=== PATIENT | male | born 1960 | race Caucasian/White ===

== ENCOUNTER 2020-11-15 01:39 | Inpatient (IN) | payer MEDICARE, SELFPAY ==
[2020-11-15] VITALS (45 sets, daily range): BP systolic 118–186; BP diastolic 76–139; PULSE 86–128; RESP 12–70; TEMP 35.7–37.7; O2SAT 63–100; BMI 40.6; BMI 37.8; BMI 37.9
--- NOTE | 2020-11-15 01:41 | EKG12_ITS ---
Test Reason : SOB Blood Pressure : / mmHG Vent. Rate : 120 BPM Atrial Rate : 120 BPM P-R Int : 186 ms QRS Dur : 088 ms QT Int : 314 ms P-R-T Axes : 056 093 -59 degrees QTc Int : 443 ms Sinus tachycardia Rightward axis T wave abnormality, consider inferolateral ischemia Abnormal ECG Confirmed by ANNA MARIE VALADEZ, TRAN ([id number]), web editor DAYTON HUTCHINS ([id number]) on 11/18/2020 7:49:31 AM Referred By: STORMY Confirmed By:TRAN THRASHER MD
--- NOTE | 2020-11-15 01:45 | ED.DCSUM_ITS ---
History of Present Illness Chief Complaint: Syncope Informant: Patient, [place] Inspector Onset: Today Narrative: Patient presents secondary to shortness of breath and syncopal episode. Patient states he was short of breath all day yesterday. He denies chest pain or abdominal pain. He was walking down the [place] to go to bed early this morning when he became lightheaded and passed out. EMS notes patient's O2 sat was around 50%. On a nonrebreather he was still only satting in the low 70s. Patient denies any known history of lung disease. Past Medical History - Allergies and Home Meds Allergies/Adverse Reactions: Allergies No Known Allergies Allergy (Verified 11/15/20 02:57) Primary Care Physician: [facility] Doctor,Out of [NON-STAFF] - Review of Systems General: Denies: Chills, Fever Eyes: Denies: Visual changes - bilaterally ENT: Denies: Bilateral ear pain Cardiovascular: Denies: Chest pain Respiratory: Reports: Dyspnea. Denies: Cough Gastrointestinal: Denies: Abdominal pain, Nausea, Vomiting, Diarrhea Genitourinary: Denies: Dysuria Musculoskeletal: Denies: Swelling, Extremity Pain Skin: Denies: Rash Neurological: Denies: Headache Hematologic: Denies: Easy bruising, Easy bleeding Allergy: Denies: Uticaria Physical Exam Vital Signs/Narrative: Vital Signs Temp Pulse Resp BP Pulse Ox 11/15/20 01:40 96.3 F L 128 H 40 H 168/115 H 63 Inital Vital Signs reviewed: Yes General: Well nourished, Well developed Head: Normocephalic Cardiovascular: Tachycardia Respiratory: Decreased Air Movement - Slight decreased air movement lung sounds are present bilaterally. Abdomen: Soft, Nontender, Hypoactive bowel sounds Extremities: Nontender, No edema Skin: Normal color Neurological: Alert, Oriented x3 Psychological: Normal affect Diagnostic/Tx/Re-eval Chest X-Ray - ED: 1 View, Read by ED Physician, - - Bilateral fluffy infiltrates consistent with pulmonary edema pattern. Impressions Chest CTA 11/15/20 02:32 IMPRESSION: No overt demonstrated pulmonary embolism, aneurysm, leak or arterial dissection. Cardiac motion is degrading the detail assessment, subtle particularly peripheral pulmonary emboli could be obscured. Cardiomegaly and coronary artery disease. Ground glass opacification likely pulmonary edema. This could represent an inflammatory/infectious process rather than vascular congestion in this patient. Other nonacute findings as outlined above. Electronically Signed: Bebe Rodriguez MD at 4:11 EDT , Service support , 11/15/20 01:58 Chest 1 View (Portable) [RAD] Stat 11/15/20 02:32 CTA Chest W/WO Contrast [CT] Stat 11/15/20 01:45 Mucosa - Nose SARS-CoV-2 Antigen (Rapid) - Final Laboratory Results 11/15/20 11/15/20 11/15/20 01:45 01:45 01:45 WBC 18.2 H RBC 5.79 Hgb 16.2 Hct 49.2 MCV 85.0 MCH 28.0 MCHC 32.9 RDW Std Deviation 42.0 RDW Coeff of Yomi 13.5 Plt Count 464 H MPV 10.3 Immature Gran % (Auto) 4.400 H Neut % (Auto) 81.3 H Lymph % (Auto) 8.5 L [place] % (Auto) 5.0 Eos % (Auto) 0.1 Baso % (Auto) 0.7 Absolute Neuts (auto) 14.8 H Absolute Lymphs (auto) 1.55 Nucleated RBC % 0 D-Dimer Quant (PE/DVT) 5.67 H* Specimen Type Sample Site pH Bicarbonate Actual Total CO2 Base Excess O2 Saturation O2 % ABG pCO2 ABG pO2 [facility] Test O2 Delivery Device POC PEEP Sodium 129 L Potassium 4.0 Chloride 92 L Carbon Dioxide 24.0 Anion Gap 13 BUN 32 H Creatinine 1.41 H Estim Creat Clear Calc 58.96 Est GFR (MDRD) Af Amer 66 Est GFR (MDRD) Non-Af 55 L BUN/Creatinine Ratio 22.7 H Glucose 182 H Calcium 8.5 Total Bilirubin 1.60 H Direct Bilirubin 0.82 H AST 77 H ALT 32 Alkaline Phosphatase 121 H Troponin I 0.193 H B-Natriuretic Peptide Total Protein 8.4 H Albumin 3.1 L Globulin 5.3 H 11/15/20 11/15/20 01:45 03:26 WBC RBC Hgb Hct MCV MCH MCHC RDW Std Deviation RDW Coeff of Yomi Plt Count MPV Immature Gran % (Auto) Neut % (Auto) Lymph % (Auto) [place] % (Auto) Eos % (Auto) Baso % (Auto) Absolute Neuts (auto) Absolute Lymphs (auto) Nucleated RBC % D-Dimer Quant (PE/DVT) Specimen Type ART Sample Site L Radial pH 7.49 H Bicarbonate Actual 22.6 Total CO2 24 Base Excess -1 O2 Saturation 94 L O2 % 70 ABG pCO2 29.8 L ABG pO2 65 L [facility] Test Positive O2 Delivery Device BiPAP POC PEEP 8 Sodium Potassium Chloride Carbon Dioxide Anion Gap BUN Creatinine Estim Creat Clear Calc Est GFR (MDRD) Af Amer Est GFR (MDRD) Non-Af BUN/Creatinine Ratio Glucose Calcium Total Bilirubin Direct Bilirubin AST ALT Alkaline Phosphatase Troponin I B-Natriuretic Peptide 273.7 H Total Protein Albumin Globulin - EKG Initial EKG Interpretation: Sinus Tachycardia - Sinus tach at 120. Inferior lateral T wave inversion. No significant ST segment changes. - Medical Decision Making Patient's O2 sat was reading 58% on arrival. He was immediately placed on BiPAP and saturations increased to 100%. At this time he has been able to have his FiO2 reduced to about 70% and is currently satting in the low 90s. Patient appears much more comfortable. EKG is sinus tach. T inversions are noted. There are no old studies available for comparison. Blood work significant for a white count of 18. Creatinine is 1.4 with no prior studies available for comparison. Troponin is elevated at 0.19. BNP is only 270. Chest x-ray per my interpretation reveals fluffy bilateral infiltrates consistent with a pulmonary edema pattern. Because of elevated D-dimer he was sent for a CTA of the chest. This was read as pulmonary edema, cannot exclude underlying inflammatory or infectious process. Patient will be given a dose of Lasix. In light of his elevated white count he will also be given Rocephin and Zithromax to cover pneumonia. Rapid Covid test here was negative. Patient be discussed with hospitalist for admission to ICU. - Critical Care Time Critical care time (excluding procedures): 30-74 minutes ED Disposition - Plan for ED Patient: Disposition: Acute Care Hospital [facility] Diagnosis: Respiratory failure, Pulmonary edema Referrals: [facility] Doctor,Out of [NON-STAFF] -
--- NOTE | 2020-11-15 01:49 | EKG12_ITS ---
Test Reason : SOB Blood Pressure : / mmHG Vent. Rate : 119 BPM Atrial Rate : 119 BPM P-R Int : 178 ms QRS Dur : 094 ms QT Int : 300 ms P-R-T Axes : 054 092 -77 degrees QTc Int : 422 ms Sinus tachycardia Rightward axis ST & T wave abnormality, consider inferolateral ischemia Abnormal ECG Confirmed by WHITNEY VALADEZ, BOB ([id number]), editorial project manager DAYTON HUTCHINS ([id number]) on 11/27/2020 2:11:53 PM Referred By: STORMY Confirmed By:BOB OLSON MD
--- NOTE | 2020-11-15 01:52 | ED.RN ---
no old ekgs on file
--- NOTE | 2020-11-15 01:58 | RAD_ITS ---
STUDY: X-RAY CHEST REASON FOR EXAM: Male, 60 years old. sob and syncope today TECHNIQUE: Single AP portable view of the chest. COMPARISON: None. FINDINGS: Confluent groundglass opacities are seen more prominent in the lung bases , may represent bilateral bacterial pneumonia , ARDS or viral pneumonia (COVID-19 ?). There is no demonstrated pleural abnormality. Normal size heart. Normal mediastinum and tommy. Normal visualized pulmonary arteries. Normal visualized aortic arch and descending thoracic aorta. Normal visualized thoracic spine. Normal visualized ribs, clavicles, and shoulders. There is no demonstrated abnormality of the visualized soft tissue structures of the upper abdomen. RAD/Chest 1 View (Portable) IMPRESSION: Confluent groundglass opacities are seen more prominent in the lung bases , may represent bilateral bacterial pneumonia , ARDS or viral pneumonia (COVID-19 ?). Electronically Signed: Russ Andujar MD at 5:06 EDT Tel , Service support ,
[2020-11-15 02:02] LABS: Absolute Lymphocyte Count 1.55 X10^3/uL (0.83-4.51); Absolute Neutrophil Count 14.8 X10^3/uL (2.0-7.7); Basophil# 0.12 X10^3/uL; Basophil% 0.7 % (0-1); Eosinophil# 0.01 X10^3/uL; Eosinophils% 0.1 % (0-5); Hematocrit 49.2 % (40-54); Hemoglobin 16.2 g/dL (13.0-16.5); Lymphocyte # 1.55 X10^3/ul (4.0); Lymphocyte % 8.5 % (19-41); Mean Corp Hgb Conc 32.9 g/dL (32-36); Mean Platelet Vol. 10.3 fl (6.2-12.0); Monocyte# 0.92 X10^3/uL; NRBC Flagged by Analyzer 0 % (0-5); Neutrophil # 14.84 X10^3/uL (2.7-7.7); Neutrophil % 81.3 % (47-70); Platelet Count 464 K/mm3 (150-450); RBC Distribution Width CV 13.5 % (11.6-14.6); Red Blood Count 5.79 M/mm3 (4.6-6.2); White Blood Count 18.2 K/mm3 (4.4-11.0)
[2020-11-15 02:18] LABS: BNP,B-Type NATRIURETIC PEPTIDE 273.7 pg/mL (0-100)
[2020-11-15 02:21] LABS: AST(SGOT) 77 U/L (15-37); Alanine Aminotransfer ALT/SGPT 32 U/L (16-61); Albumin, Serum 3.1 g/dL (3.2-5.0); Alkaline Phosphatase 121 U/L (45-117); Anion Gap 13 (5-15); BUN 32 mg/dL (7-18); BUN/Creat Ratio 22.7 RATIO (10-20); Bilirubin, Direct 0.82 mg/dL (0.00-0.30); Calcium,Total 8.5 mg/dL (8.5-10.1); Chloride 92 mmol/L (98-107); Creatinine, Serum 1.41 mg/dL (0.70-1.30); EST Glomerular Filtration Rate 55 mL/min (>60); Est Glom Filt Rate - Afr Amer 66 mL/min (>60); Estimated Creatinine Clearance 58.96 ml/min; Globulin 5.3 g/dL (2.2-4.2); Glucose 182 mg/dL (74-106); Protein, Total 8.4 g/dL (6.4-8.2); Sodium Level 129 mmol/L (136-145)
[2020-11-15 02:31] LABS: Allen Test Positive; Base Excess -1 mmol/L (-2 to +2); Bicarbonate 22.6 mmol/L (22-26); Blood Gas Specimen Type ART; FI02 70; O2 Delivery Device BiPAP; PEEP 8; PO2 65 mmHG (75-100); SITE L Radial; SO2 94 % (95-99); Total Carbon Dioxide 24 mmol/L; pCO2 29.8 mmHg (35-45); pH 7.49 (7.35-7.45)
[2020-11-15 02:31] LABS: D-Dimer Quantitative (DVT/PE) 5.67 FEU/ug/m (0.27-0.49)
--- NOTE | 2020-11-15 02:32 | CT_ITS ---
STUDY: CTA CHEST REASON FOR EXAM: Male, 60 years old. sob, elevated d-dimer RADIATION DOSAGE (If Supplied By Facility): CTDIvol = ( 17.42 ) mGy, DLP = ( 560.04 ) mGycm TECHNIQUE: The examination was performed with the intravenous administration of IV 100mL Isovue-370. Post-processing of the angiographic images was performed, with multiplanar reformation and 3D reconstruction. There is image blurring as a result of cardiac motion. Diagnostic accuracy is somewhat reduced. However, there is substantial diagnostic information remaining available on this study. There is obesity, the entirety of soft tissue is not imaged. Individualized dose optimization techniques were used for this CT. COMPARISON: Lateral chest x-ray 11/15/2020 FINDINGS: Normal enhancement of the main pulmonary artery and right and left pulmonary arteries. Normal enhancement of the bilateral peripheral pulmonary arteries. There is no demonstrated pulmonary embolism. Normal thoracic aorta and visualized great vessels. There is no demonstrated aortic dissection. There is cardiomegaly. There are calcifications of the coronary arteries. No overt lymphadenopathy. Normal hilar regions. Normal visualized trachea and bronchi. The lungs are well expanded. Diffuse bilateral groundglass opacification, relative sparing of the left upper lobe. Normal pleura. Normal chest wall structures. There are significant degenerative changes of thoracic spine. Normal visualized upper abdomen. CT/CTA Chest W/WO Contrast IMPRESSION: No overt demonstrated pulmonary embolism, aneurysm, leak or arterial dissection. Cardiac motion is degrading the detail assessment, subtle particularly peripheral pulmonary emboli could be obscured. Cardiomegaly and coronary artery disease. Ground glass opacification likely pulmonary edema. This could represent an inflammatory/infectious process rather than vascular congestion in this patient. Other nonacute findings as outlined above. Electronically Signed: Bebe Rodriguez MD at 4:11 EDT , Service support ,
[2020-11-15] MEDS: Furosemide 40 MG/4 ML Vial IV ×3 (04:27→17:38)
[2020-11-15] MEDS: Ceftriaxone 1 GM/50 ML BAG IV ×2 (04:27→23:04)
--- NOTE | 2020-11-15 04:47 | HP.PCM_ITS ---
Problem List (1) Acute hypoxemic respiratory failure Status: Acute (2) Respiratory failure Status: Acute (3) Pulmonary edema Status: Acute (4) No previous medical history Status: Chronic History of Present Illness Date of Admission: 11/15/20 Chief Complaint: sob The patient is a 60 year old M with no diagnosed medical condition presented to emergency department with progressively worsening shortness of breath that started about 3 days before presentation. Associated with symptoms is lightheadedness. With his lightheadedness he fell to the wall. Also patient reports intermittent fever with highest temperature of 101 Fahrenheit. He has a dry cough. He has no appetite. Reportedly when squad found him his oxygen saturation was a 40s to low 50s and he required none rebreather mask wich brought his oxygen saturation to about 70%. At emergency department he was transitioned to BiPAP. Of note patient had had first Covid moderna vaccination about 2 weeks ago. His mother who was with patient confirms that patient has not been seeing a doctor. Past Medical History Past Medical History (Chronic Problems): Chronic Problems (Last Updated 11/15/20 @ 05:[address] Angel Patel MD) No previous medical history (Chronic) Medical History: Medical History (Last Updated 11/15/20 @ 05:[address] Angel Patel MD) No previous medical history (Acute) Allergies No Known Allergies Allergy (Verified 11/15/20 02:57) Surgical History: no surgical history Smoking Status: Never smoker - *Family History Maternal History Items: Dementia, Heart Disease, - - Arthritis Paternal History Items: Dementia Review of Systems Constitutional: Reports: Fever. Denies: Chills, Weight Change - Lost about 5 pounds in 1 and half weeks because he has not been eating HEENT: Denies: Head Aches, Sinus Congestion, Sinus Drainage Cardiovascular: Reports: Light Headedness, Paroxysmal Noc. Dyspnea. Denies: Chest Pain, Palpitations Respiratory: Reports: Cough. Denies: Shortness of Breath, Sputum production Gastrointestinal: Denies: Abdominal Pain, Nausea, Vomiting Genitourinary: Denies: Dysuria Musculoskeletal: Denies: Joint Pain, Joint Tenderness Skin: Denies: Rash, Wounds Neurological: Denies: Numbness, Tingling, Focal weakness Psychiatric: Denies: Anxiety, Depression, Homicidal Ideations, Suicidal Ideations Hematologic/ Lymphatic: Denies: Easy Bruising, Easy Bleeding VTE Information - Inpt Only VTE Present on Admission: No VTE Mechan Device Prophylaxis: None VTE Pharm Prophylaxis ordered?: Yes Patient Problems: Active and Suspected Problems (Last Updated 11/15/20 @ 05:[address] Angel Patel MD) Respiratory failure (Acute) Pulmonary edema (Acute) Acute hypoxemic respiratory failure (Acute) - Physical Exam Vitals/I&O's: Vital Signs Temp Pulse Resp BP Pulse Ox 97 F L 115 H 39 H 158/126 H 94 11/15/20 04:00 11/15/20 04:16 11/15/20 04:16 11/15/20 04:00 11/15/20 04:16 Oxygen Delivery Method Bi-pap Weight: 128.5 kg Body Mass Index (BMI) 40.6 General: Alert, Oriented x3, Cooperative HEENT: Atraumatic, PERRLA, EOMI, Normocephalic Neck: Supple, No JVD, Negative Carotid Bruits Lungs: Rales, Tachypneic, Using Accessory Muscles Cardiovascular: Normal S1, Normal S2, No murmurs, Tachycardic Abdomen: Bowel Sounds Present, Soft, Non Tender Extremities: No edema, Capillary Refill Less than 3 Seconds Skin: No rashes, No breakdown Musculoskeletal: No Tenderness to Palpation of Joints or Extremities Neurological: Cranial nerves II-XII grossly intact Psych/Mental Status: Normal Affect, Appropriate Microbiology Past 72 Hours 11/15/20 01:45 Mucosa - Nose SARS-CoV-2 Antigen (Rapid) - Final Laboratory Results 11/15/20 01:45: WBC 18.2 H, RBC 5.79, Hgb 16.2, Hct 49.2, MCV 85.0, MCH 28.0, MCHC 32.9, RDW Std Deviation 42.0, RDW Coeff of Yomi 13.5, Plt Count 464 H, MPV 10.3, Immature Gran % (Auto) 4.400 H, Neut % (Auto) 81.3 H, Lymph % (Auto) 8.5 L , [place] % (Auto) 5.0, Eos % (Auto) 0.1, Baso % (Auto) 0.7, Absolute Neuts (auto) 14.8 H, Absolute Lymphs (auto) 1.55, Nucleated RBC % 0 11/15/20 01:45: D-Dimer Quant (PE/DVT) 5.67 H* 11/15/20 01:45: Sodium 129 L, Potassium 4.0, Chloride 92 L, Carbon Dioxide 24.0, Anion Gap 13, BUN 32 H, Creatinine 1.41 H, Estim Creat Clear Calc 58.96, Est GFR (MDRD) Af Amer 66, Est GFR (MDRD) Non-Af 55 L, BUN/Creatinine Ratio 22.7 H, Glucose 182 H, Calcium 8.5, Total Bilirubin 1.60 H, Direct Bilirubin 0.82 H, AST 77 H, ALT 32, Alkaline Phosphatase 121 H, Troponin I 0.193 H, Total Protein 8.4 H, Albumin 3.1 L, Globulin 5.3 H 11/15/20 01:45: B-Natriuretic Peptide 273.7 H 11/15/20 03:26: Specimen Type ART, Sample Site L Radial, pH 7.49 H, Bicarbonate Actual 22.6, Total CO2 24, Base Excess -1, O2 Saturation 94 L, O2 % 70, ABG pCO2 29.8 L, ABG pO2 65 L, [facility] Test Positive, O2 Delivery Device BiPAP, POC PEEP 8 Current Medications Azithromycin 500 mg/ Dextrose 255 mls @ 250 mls/hr IV X1 ONE Stop: 11/15/20 05:16 Assessment/Plan All Active Problems (Last Updated 11/15/20 @ 05:[address] Angel Patel MD) Respiratory failure (Acute) Pulmonary edema (Acute) Acute hypoxemic respiratory failure (Acute) The patient is a 60 year old M with no diagnosed medical condition presented to emergency department with progressively worsening shortness of breath; light headedness and severe hypoxia requiring BiPAP. Acute hypoxemic respiratory failure/pulmonary edema Patient requiring BiPAP to maintain appropriate oxygen saturation. Continue BiPAP started at emergency department. Impression of chest x-ray by radiology: Confluent granular opacity are seen more prominent in the lung bases, may represent bilateral bacterial pneumonia, ARDS or viral pneumonia (COVID-19?) D-dimer was elevated at 5.67. Chest CTA with cardiomegaly, coronary disease and groundglass opacities. Etiology unclear at this point. However with fever and leukocytosis with bandemia patient was started on ceftriaxone and azithromycin emergency department. We will continue antibiotics and will check procalcitonin. Initially rapid Covid antigen was negative. We will get a PCR Covid. We will also get influenza screen. If PCR Covid is negative and influenza screen is negative consider comprehensive respiratory pathogen panel Received Lasix 40 mg IV at emergency department. We will continue Lasix 40 mg IV twice daily Discussed with emergency department doctor to order nitroglycerin paste. Nitroglycerin paste ordered inpatient. Daily weights ordered. Strict intake and output. N.p.o. while on BiPAP. BNP is 273.7. However patient is overweight making BMP falsely low. Echocardiogram ordered Elevated troponin Troponin elevated at 0.193 Likely secondary demand Elevated liver biochemistry and alkaline phosphatase No prior records in hospital system or committee records to compare with. Trend CMP. Elevated creatinine Creatinine elevated at 1.41. No records to compare with. With pulmonary edema dyspnea likely be acute. Lasix as above. Hyponatremia Sodium of 129 chloride of 92. Likely secondary to hypervolemia. Lasix as above. Thrombocytosis Platelet count of 464 Likely secondary to active. Trend CBC. Morbid Obesity: BMI:40.6. Complicates care. Lifestyle modification recommended. DVT prophylaxis Subcutaneous Lovenox ordered. Inpatient E&M: 78810 Init Hosp L3
[2020-11-15] MEDS: Nitroglycerin Oint 1 INCH PACKET TD ×4 (05:18→23:46)
[2020-11-15] MEDS: Labetalol (Prefilled) 20 MG/4 ML 10 MG IV (06:47)
[2020-11-15 07:45] LABS: Procalcitonin 0.58 ng/mL (0.00-0.09)
--- NOTE | 2020-11-15 08:26 | CON.PCM_ITS ---
Problem List (1) Respiratory failure Status: Acute Qualifiers: Chronicity: acute Respiratory failure complication: hypoxia Qualified Code(s): J96.01 - Acute respiratory failure with hypoxia (2) Pulmonary edema Status: Acute Qualifiers: Chronicity: acute Qualified Code(s): J81.0 - Acute pulmonary edema (3) Acute hypoxemic respiratory failure Status: Acute (4) Hypertensive emergency Status: Acute Reason for Consult Date of Consultation: 11/15/20 Reason for Consultation: Acute hypoxic respiratory failure History of Present Illness: The patient is a 60 year old M, with no reported past medical history, who presented to [facility] on 11/15/2020 secondary to shortness of breath and a syncopal episode. Patient reportedly has had progressive shortness of breath for the 24 hours. Patient was not reporting any cough, chest pain or abdominal pain. Patient reportedly was walking down the gama to go to bed this morning, became lightheaded and then passed out. EMS reported saturations around 50%. Patient was on a nonrebreather saturating low 70s when he was brought to the emergency room for evaluation. Patient does not report a history of lung disease or smoking. In the ER, patient was noted to be tachycardic at 128 bpm, tachypneic at 40 and hypertensive at 168/115. Chest x-ray was obtained consistent with a pulmonary edema pattern. Patient was also sent for CTA showing no PE, but bilateral groundglass opacities. Rapid Covid was negative. Patient did have a leukocytosis of 18.2 with a hemoglobin of 16.2, and elevated D-dimer at 5.67. Patient was hyponatremic at 129 with a creatinine of 1.4 and slightly elevated troponin at 0.193. Arterial blood gas on BiPAP therapy showed a pH of 7.49, PCO2 of 29.8, PO2 of 65% with a 94% saturation. EKG showed sinus tachycardia without T wave changes. Patient was given Lasix, Rocephin and Zithromax admitted to the intensive care unit for further evaluation. On my evaluation in the intensive care unit, patient was hypertensive at 186/112. Patient remained tachypneic, but was more comfortable. Patient states that he has been feeling progressively more short of breath over the course of 5 to 7 days, but is a relatively poor historian. Patient does report that his legs swell from time to time requiring him to lift them with sleep. Patient reportedly does not follow with physicians routinely. Patient does not check his oxygen saturation, blood pressure or heart rate routinely. Patient reports he has never been a smoker and denies any alcohol or substance abuse. Patient denies any history of asbestos or TB exposure. Patient has never had a pulmonary function test. Review of systems otherwise negative from a constitutional, HEENT, respiratory, cardiovascular, GI, genitourinary, musculoskeletal, skin, neurologic, psychiatric and hematologic system unless stated above. Past Medical History Past Medical History (Chronic Problems): Chronic Problems (Last Updated 11/15/20 @ 05:[address] Angel Patel MD) No previous medical history (Chronic) Medical History: Medical History (Last Updated 11/15/20 @ 05:[address] Angel Patel MD) No previous medical history (Chronic) Allergies No Known Allergies Allergy (Verified 11/15/20 02:57) Surgical History: no surgical history Smoking Status: Never smoker - *Family History Maternal History Items: Dementia, Heart Disease, - - Arthritis Paternal History Items: Dementia Review of Systems Unable to obtain accurate/complete ROS d/t: Poor historian Patient Problems: Active and Suspected Problems (Last Updated 11/15/20 @ 05:[address] Angel Patel MD) Respiratory failure (Acute) Pulmonary edema (Acute) Acute hypoxemic respiratory failure (Acute) Objective: All imaging was personally reviewed. Agree with formal reports. Patient did not have a significant amount of mediastinal lymphadenopathy appreciated, but does have extensive groundglass opacities. Covid PCR is currently pending. Patient does not have any previous echocardiograms or pulmonary function test available for review. - Physical Exam Vitals/I&O's: Vital Signs Temp Pulse Resp BP Pulse Ox 35.9 C L 98 42 H 132/109 H 97 11/15/20 08:00 11/15/20 08:00 11/15/20 08:00 11/15/20 08:00 11/15/20 08:00 Oxygen Delivery Method Bi-pap Weight: 126.7 kg Body Mass Index (BMI) 37.8 Intake and Output for Last 24 Hours 11/13/20 11/14/20 11/15/20 23:59 23:59 23:59 Intake Total 305 / 305 Balance 305 / 305 General: Alert, Oriented x3, Cooperative, - - Mild conversational dyspnea on BiPAP therapy. Obese. Appears older than stated age. HEENT: Atraumatic, PERRLA, EOMI, Normocephalic, - - No scleral icterus or injection noted Oral: Moist Mucosa, No Gingival or Mucosal Lesions/ Ulcerations, - - Crowded posterior pharynx Neck: Supple, No Nodes, Trachea Midline, JVD, Right Lungs: No rhonchi, Diminished, Rales - Bilateral, Wheezes - End expiratory Cardiovascular: Normal S1, Normal S2, No murmurs, No rub noted, No Gallop, Tachycardic Abdomen: Bowel Sounds Present, Soft, Non Tender, Non-Distended, Obese Extremities: No clubbing, No cyanosis, Edema - 1-2+ lower extremity Skin: No rashes, No breakdown Musculoskeletal: No Tenderness to Palpation of Joints or Extremities Lymphatic: No Cervical, Supraclavicular, or Inguinal Adenopathy Neurological: Cranial nerves II-XII grossly intact, Neuro grossly intact, Motor Exam 5/5 strength throughout Psych/Mental Status: Flat Affect, Restless Microbiology Past 72 Hours 11/15/20 05:27 Mucosa - Nose Influenza Types A,B Direct FA (ASHLI) - Final 11/15/20 01:45 Mucosa - Nose SARS-CoV-2 Antigen (Rapid) - Final Laboratory Results 11/15/20 01:45: WBC 18.2 H, RBC 5.79, Hgb 16.2, Hct 49.2, MCV 85.0, MCH 28.0, MCHC 32.9, RDW Std Deviation 42.0, RDW Coeff of Yomi 13.5, Plt Count 464 H, MPV 10.3, Immature Gran % (Auto) 4.400 H, Neut % (Auto) 81.3 H, Lymph % (Auto) 8.5 L , [place] % (Auto) 5.0, Eos % (Auto) 0.1, Baso % (Auto) 0.7, Absolute Neuts (auto) 14.8 H, Absolute Lymphs (auto) 1.55, Nucleated RBC % 0 11/15/20 01:45: D-Dimer Quant (PE/DVT) 5.67 H* 11/15/20 01:45: Sodium 129 L, Potassium 4.0, Chloride 92 L, Carbon Dioxide 24.0, Anion Gap 13, BUN 32 H, Creatinine 1.41 H, Estim Creat Clear Calc 58.96, Est GFR (MDRD) Af Amer 66, Est GFR (MDRD) Non-Af 55 L, BUN/Creatinine Ratio 22.7 H, Glucose 182 H, Calcium 8.5, Total Bilirubin 1.60 H, Direct Bilirubin 0.82 H, AST 77 H, ALT 32, Alkaline Phosphatase 121 H, Troponin I 0.193 H, Total Protein 8.4 H, Albumin 3.1 L, Globulin 5.3 H 11/15/20 01:45: B-Natriuretic Peptide 273.7 H 11/15/20 03:26: Specimen Type ART, Sample Site L Radial, pH 7.49 H, Bicarbonate Actual 22.6, Total CO2 24, Base Excess -1, O2 Saturation 94 L, O2 % 70, ABG pCO2 29.8 L, ABG pO2 65 L, [facility] Test Positive, O2 Delivery Device BiPAP, POC PEEP 8 11/15/20 06:40: Procalcitonin 0.58 H 11/15/20 08:00: COVID-19 (MISAEL) Pending 11/15/20 08:00: Troponin I Pending Current Medications Albuterol Sulfate (Albuterol 2.5 Mg/3 Ml Vial.Neb.) 2.5 mg INHALATION Q2H PRN PRN PRN Reason: SOB/Wheezing Enoxaparin Sodium (Enoxaparin 40 Mg/0.4 Ml Syringe) 40 mg SC DAILY VIKTROIYA Furosemide (Furosemide 40 Mg/4 Ml Vial) 40 mg IV BID@1000,1800 [facility] Sodium Chloride () 250 mls @ 15 mls/hr IV .[id number] PRN PRN Reason: Saline Flush Ceftriaxone Sodium (Rocephin) 1 gm in 50 mls @ 100 mls/hr IV Q24@2200 VIKTORIYA Azithromycin 500 mg/ Dextrose 255 mls @ 250 mls/hr IV Q24@2200 VIKTORIYA Melatonin (Melatonin 3 Mg Tablet) 3 mg PO QHS PRN PRN PRN Reason: INSOMNIA Nitroglycerin (Nitroglycerin Oint 1 Inch Packet) 1 inch TD Q6 VIKTORIYA Ondansetron HCl (Ondansetron 4 Mg/2 Ml Vial) 4 mg IV Q8H PRN PRN PRN Reason: NAUSEA/VOMITING Sodium Chloride (0.9% Saline Lock 10 Ml Syringe) 10 - 40 ml IV UD PRN PRN Reason: SALINE FLUSH Clinical Impression(s) from Imaging Studies Chest X-Ray 11/15/20 01:58 IMPRESSION: Confluent groundglass opacities are seen more prominent in the lung bases , may represent bilateral bacterial pneumonia , ARDS or viral pneumonia (COVID-19 ?). Electronically Signed: Russ Andujar MD at 5:06 EDT Tel , Service support , Chest CTA 11/15/20 02:32 IMPRESSION: No overt demonstrated pulmonary embolism, aneurysm, leak or arterial dissection. Cardiac motion is degrading the detail assessment, subtle particularly peripheral pulmonary emboli could be obscured. Cardiomegaly and coronary artery disease. Ground glass opacification likely pulmonary edema. This could represent an inflammatory/infectious process rather than vascular congestion in this patient. Other nonacute findings as outlined above. Electronically Signed: Bebe Rodriguez MD at 4:11 EDT , Service support , Assessment/Plan Active and Suspected Problems (Last Updated 11/15/20 @ 05:[address] Angel Patel MD) Respiratory failure (Acute) Pulmonary edema (Acute) Acute hypoxemic respiratory failure (Acute) RECOMMENDATIONS: 1. Aggressive control of blood pressure 2. Continue diuretic therapy. Place [place] if necessary 3. Wean FiO2 as tolerated 4. Obtain echocardiogram. Possible cardiology consult 5. Wean oxygen as tolerated 6. BiPAP with all sleep empirically until outpatient sleep study can be obtained IMPRESSIONS: 1. Acute hypoxic respiratory failure of unclear etiology Patient with very poor medical history at this time. Clinical suspicion for chronic hypoxia leading to secondary polycythemia with a hemoglobin over 16. Patient appears to be responding to BiPAP therapy at this time. Patient may have an element of cor pulmonale or congestive heart failure. Echo has been ordered. Reasonable to cover with antibiotics for now, but low clinical suspicion for bilateral pneumonia. COVID-19 is currently pending and will continue respiratory precautions until PCR is negative. Patient does have an element of hyponatremia, so coverage for Legionella will be important. 2. Hypertensive emergency Patient likely has an element of underlying hypertension that is not being treated. Unclear if elevated blood pressures are secondary to an acute stress response versus progression of underlying disease. Patient appears to have some renal dysfunction. Unclear if this is chronic or acute. Hypertensive nephropathy would be a consideration. 3. Elevated troponin Clinical suspicion for supply demand mismatch. However, given lack of previous PCP following, treatment for non-ST elevation CA with anticoagulation is appropriate 4. Obesity/poor primary care/poor historian Complicates care, management, recovery and prognosis. Case management will need to help patient establish with a PCP. Patient has multiple medical problems including probable obstructive sleep apnea, hypertension, obesity and potentially congestive heart failure that will need to be managed as an outpatient. TIME: 32 minutes critical care time spent addressing patient's acute hypoxic respiratory failure, hypertensive emergency, elevated troponin, possible acute kidney injury, review of all data and collaboration with care team (6:30 AM to 8:30 AM) [id number]: [id number] Critical care first hour
--- NOTE | 2020-11-15 09:11 | PCM.PN.BLA ---
Progress Note 60-year-old male with no PMHx who presented with shortness of breath and syncope. Patient was found to be in respiratory failure. He was seen in ICU. His initial COVID-19 rapid antigen test is negative. COVID-19 PCR is positive. Patient was seen and examined. He denied any new complaints. He remains on BiPAP, FiO2 80%. His troponins are elevated; 0.193, 0.816. Will start on lovenox 120mg Sc x 1 Start metoprolol 12.5mg po bid Continue on Dexamethasone and Remdesivir STROKE Vital Signs/Narrative: Vital Signs Temp Pulse Resp BP BP Pulse Ox 11/15/20 08:00 96.7 F L 98 42 H 132/109 H 97 11/15/20 07:00 100 34 H 118/85 H 94 11/15/20 06:45 108 H 40 H 164/110 H 95 11/15/20 06:30 112 H 42 H 186/126 H 95 11/15/20 06:15 111 H 28 H 180/139 H 95 11/15/20 06:00 97.0 F L 109 H 28 H 176/122 H 95 11/15/20 05:58 110 H 37 H 96 11/15/20 05:21 96.8 F L 116 H 38 H 173/126 H 93 11/15/20 05:18 112 H 173/126 H
[2020-11-15] MEDS: Enoxaparin 120 MG/0.8 ML Syringe SC ×2 (10:33→23:03)
[2020-11-15] MEDS: dexAMETHasone 10 MG/ML Vial 6 MG IV (13:09)
[2020-11-15 13:39] LABS: Anion Gap 9 (5-15); BUN 36 mg/dL (7-18); BUN/Creat Ratio 31.9 RATIO (10-20); Calcium,Total 7.8 mg/dL (8.5-10.1); Chloride 98 mmol/L (98-107); Creatinine, Serum 1.13 mg/dL (0.70-1.30); EST Glomerular Filtration Rate 71 mL/min (>60); Est Glom Filt Rate - Afr Amer 86 mL/min (>60); Estimated Creatinine Clearance 78.21 ml/min; Glucose 147 mg/dL (74-106); Potassium 3.6 mmol/L (3.5-5.1); Sodium Level 134 mmol/L (136-145)
--- NOTE | 2020-11-15 20:53 | PCM.CONS.C ---
Reason for Consult Date of Consultation: 11/15/20 Reason for Consultation: Shortness of breath and elevated troponin History of Present Illness: The patient is a 60 year old M, with no reported past medical history, who presented to [facility] on 11/15/2020 secondary to shortness of breath and a syncopal episode. Patient reportedly has had progressive shortness of breath for the 2 weeks especially the last 24 hours. Patient has been coughing up brownish sputum with a low-grade fever of 100 ?F. He denies chest pain, orthopnea or PND. Patient reportedly was walking down the gama to go to bed this morning, became lightheaded and then passed out. EMS reported saturations around 50%. Patient was on a nonrebreather saturating low 70s when he was brought to the emergency room for evaluation. Patient does not report a history of lung disease or smoking. In the ER, patient was noted to be tachycardic at 128 bpm, tachypneic at 40 and hypertensive at 168/115. Chest x-ray was obtained consistent with a pulmonary edema pattern. Patient was also sent for CTA showing no PE, but bilateral ground glass opacities. Subject has always been very healthy. He has never been follow-up with any medical doctor. He has not been taking any medications at home. There has been no history of myocardial infarct or CVA. He said he has had some hypertension denies any history of diabetes or hyperlipidemia. Patient was tested positive for COVID-19 After admission to the ICU patient's blood pressure was aggressively treated. At the moment patient blood pressure is 138/85, still tachycardic. Patient still on high flow of oxygen Past Medical History Allergies/Adverse Reactions: Allergies No Known Allergies Allergy (Verified 11/15/20 02:57) Past Medical History (Chronic Problems): Chronic Problems (Last Updated 11/15/20 @ 05:[address] Angel Patel MD) No previous medical history (Chronic) Surgical History: no surgical history Psychiatric History: No pertinent psych hx - *Family History Maternal History Items: Dementia, Heart Disease, - - Arthritis Paternal History Items: Dementia Smoking Status: Never smoker Alcohol: None Drugs: None Review of Systems - Review of Systems General: Reports: Fatigue, Weakness Cardiovascular: Reports: Shortness of Breath, Shortness of Breath at Rest, Shortness of Breath with Exertion, Syncope. Denies: Chest Discomfort, Orthopnea Respiratory: Reports: Cough, Shortness of Breath Gastrointestinal: Denies: Hematemesis, Hematochezia, Melena Genitourinary: Denies: Dysuria, Hematuria Neurological: Reports: Weakness Objective: Vital Signs Temp Pulse Resp BP Pulse Ox 98.3 F 96 24 H 153/90 H 94 11/15/20 17:37 11/15/20 18:00 11/15/20 18:00 11/15/20 18:00 11/15/20 18:00 Oxygen Flow Rate (L/min) 92 Oxygen Delivery Method Airvo Weight: 279 lb 5.211 oz Body Mass Index (BMI) 37.8 Intake and Output for Last 24 Hours 11/13/20 11/14/20 11/15/20 23:59 23:59 23:59 Intake Total 555 / 555 Output Total 950 / 950 Balance -395 / -395 General: Awake, Alert, Oriented x 3, Obese HEENT: Atraumatic Neck: Supple Chest Wall: - - This is a televisit Lungs: - - This is a televisit Psych/Mental Status: Appropriate, Normal Affect 11/15/20 01:45: WBC 18.2 H, RBC 5.79, Hgb 16.2, Hct 49.2, MCV 85.0, MCH 28.0, MCHC 32.9, Plt Count 464 H, MPV 10.3, Immature Gran % (Auto) 4.400 H, Neut % (Auto) 81.3 H, Lymph % (Auto) 8.5 L, [place] % (Auto) 5.0, Eos % (Auto) 0.1, Baso % (Auto) 0.7, Absolute Neuts (auto) 14.8 H, Nucleated RBC % 0 11/15/20 01:45: D-Dimer Quant (PE/DVT) 5.67 H* 11/15/20 01:45: Sodium 129 L, Potassium 4.0, Chloride 92 L, Carbon Dioxide 24.0, Anion Gap 13, BUN 32 H, Creatinine 1.41 H, Est GFR (MDRD) Af Amer 66, Est GFR (MDRD) Non-Af 55 L, BUN/Creatinine Ratio 22.7 H, Glucose 182 H, Calcium 8.5, Total Bilirubin 1.60 H, Direct Bilirubin 0.82 H, Troponin I 0.193 H 11/15/20 01:45: B-Natriuretic Peptide 273.7 H 11/15/20 03:26: pH 7.49 H, Bicarbonate Actual 22.6, Base Excess -1, O2 Saturation 94 L, ABG pCO2 29.8 L, ABG pO2 65 L, [facility] Test Positive 11/15/20 08:00: Troponin I 0.816 H* 11/15/20 10:40: Troponin I 0.795 H* 11/15/20 13:10: Troponin I 0.820 H* 11/15/20 13:10: Sodium 134 L, Potassium 3.6, Chloride 98, Carbon Dioxide 27.0, Anion Gap 9, BUN 36 H, Creatinine 1.13, Est GFR (MDRD) Af Amer 86, Est GFR (MDRD) Non-Af 71, BUN/Creatinine Ratio 31.9 H, Glucose 147 H, Calcium 7.8 L Rhythm: EKG: ECHO: Stress Test: Cardiac Cath: PCI: CT Surgery: Holter monitor: EPS: PPM: CXR: Chest CT Scan: Assessment/Plan #1 elevated troponin, EKG shows sinus tachycardia with T wave inversions seen in inferior lead and anterolateral leads. Patient denies any chest discomfort. This is most likely type II myocardial infarct with severe hypoxemia and sinus tachycardia with Covid 19 pneumonia. The shortness of breath probably is secondary to pneumonia and possibly hypertensive heart disease. The blood pressure has been under good control at this point. Patient sinus tachycardia is probably secondary to hypoxemia and pneumonia. No invasive procedure is contemplated until be Covid sepsis is stabilized. Baby aspirin a day, beta-kathy, RICHARD inhibitor can be used. Echocardiogram will be scheduled. EKG and enzymes will be trended
[2020-11-15] MEDS: Metoprolol Tartrate 25 MG Tablet PO (23:04)
[2020-11-15] MEDS: Lisinopril 20 MG Tablet PO (23:43)
[2020-11-16] VITALS (34 sets, daily range): BP systolic 107–162; BP diastolic 61–112; PULSE 67–90; RESP 12–41; TEMP 37.1–37.8; O2SAT 91–98
[2020-11-16 04:29] LABS: Absolute Lymphocyte Count 1.27 X10^3/uL (0.83-4.51); Absolute Neutrophil Count 15.1 X10^3/uL (2.0-7.7); Basophil# 0.09 X10^3/uL; Basophil% 0.5 % (0-1); Eosinophil# 0.04 X10^3/uL; Eosinophils% 0.2 % (0-5); Lymphocyte # 1.27 X10^3/ul (4.0); Lymphocyte % 6.9 % (19-41); Mean Corp Hgb Conc 33.3 g/dL (32-36); Mean Corpuscular Hgb 28.4 pg (27.0-32.0); Mean Corpuscular Volume 85.1 fL (80-94); Mean Platelet Vol. 10.2 fl (6.2-12.0); Monocyte# 0.97 X10^3/uL; Monocyte% 5.3 % (0-10); NRBC Flagged by Analyzer 0.3 % (0-5); Neutrophil # 15.12 X10^3/uL (2.7-7.7); Neutrophil % 82.3 % (47-70); Platelet Count 393 K/mm3 (150-450); RBC Distribution Width CV 13.7 % (11.6-14.6); RBC Distribution Width SD 42.5 fl (35.1-43.9); Red Blood Count 5.29 M/mm3 (4.6-6.2); White Blood Count 18.4 K/mm3 (4.4-11.0)
[2020-11-16 04:44] LABS: ALB/GLOB Ratio 0.6 RATIO (0.9-2.4); AST(SGOT) 45 U/L (15-37); Alanine Aminotransfer ALT/SGPT 26 U/L (16-61); Albumin, Serum 2.7 g/dL (3.2-5.0); Alkaline Phosphatase 132 U/L (45-117); Anion Gap 8 (5-15); BUN 40 mg/dL (7-18); BUN/Creat Ratio 38.8 RATIO (10-20); Calcium,Total 8.3 mg/dL (8.5-10.1); Chloride 98 mmol/L (98-107); Creatinine, Serum 1.03 mg/dL (0.70-1.30); EST Glomerular Filtration Rate 79 mL/min (>60); Est Glom Filt Rate - Afr Amer 95 mL/min (>60); Globulin 4.7 g/dL (2.2-4.2); Glucose 124 mg/dL (74-106); Potassium 3.8 mmol/L (3.5-5.1); Protein, Total 7.4 g/dL (6.4-8.2); Sodium Level 136 mmol/L (136-145)
--- NOTE | 2020-11-16 05:45 | PN_ITS ---
Subjective: The patient was seen and examined at the bedside this morning. Events from the last 24 hours have been reviewed. The patient is currently febrile but remains hemodynamically stable. He is currently maintaining appropriate oxygen saturations on Airvo heated high flow with an FiO2 requirement of 92% and flow rate of 60 L/min. Overnight, the patient was maintained on BiPAP most of the evening. White count remains elevated at 18,000. Liver and renal function are stable. The patient still reports residual shortness of breath and nonproductiv e cough. The patient remains on remdesivir, Decadron, therapeutic Lovenox and antimicrobials. Objective: The patient's most recent lab work, culture data and imaging studies have all been personally reviewed. Coronavirus PCR was positive on November 15. Strep and urine Legionella antigens were negative. Rapid influenza screen was negative. Blood cultures are pending. General: Alert, Cooperative, No apparent distress HEENT: Atraumatic, PERRLA, Normocephalic Oral: No Gingival or Mucosal Lesions/ Ulcerations Neck: Supple, No Nodes, Trachea Midline Lungs: No rhonchi, No wheeze, Diminished, Rales Cardiovascular: Regular rate, Regular Rhythm, Normal S1, Normal S2, No murmurs Abdomen: Bowel Sounds Present, Soft, Non Tender, Obese Extremities: No clubbing, No cyanosis, Edema Skin: No breakdown Musculoskeletal: No Tenderness to Palpation of Joints or Extremities Lymphatic: No Cervical, Supraclavicular, or Inguinal Adenopathy Neurological: Cranial nerves II-XII grossly intact, Neuro grossly intact Psych/Mental Status: Normal Affect, Appropriate Vital Signs Temp Pulse Resp BP Pulse Ox 100.1 F H 86 40 H 122/61 H 91 11/16/20 01:00 11/16/20 03:20 11/16/20 03:20 11/16/20 01:00 11/16/20 03:20 Oxygen Flow Rate (L/min) 60 Oxygen Delivery Method Bi-pap Weight: 279 lb 5.211 oz Body Mass Index (BMI) 37.8 Intake and Output for Last 24 Hours 11/14/20 11/15/20 11/16/20 23:59 23:59 23:59 Intake Total 605 / 605 255 / 255 Output Total 2050 / 2225 350 / 350 Balance -1445 / -1620 -95 / -95 Labs (Last 48 Hours) 11/15/20 11/15/20 11/15/20 01:45 01:45 01:45 WBC 18.2 H RBC 5.79 Hgb 16.2 Hct 49.2 MCV 85.0 MCH 28.0 MCHC 32.9 RDW Std Deviation 42.0 RDW Coeff of Yomi 13.5 Plt Count 464 H MPV 10.3 Immature Gran % (Auto) 4.400 H Neut % (Auto) 81.3 H Lymph % (Auto) 8.5 L Hayes % (Auto) 5.0 Eos % (Auto) 0.1 Baso % (Auto) 0.7 Absolute Neuts (auto) 14.8 H Absolute Lymphs (auto) 1.55 Nucleated RBC % 0 D-Dimer Quant (PE/DVT) 5.67 H* Specimen Type Sample Site pH Bicarbonate Actual Total CO2 Base Excess O2 Saturation O2 % ABG pCO2 ABG pO2 [facility] Test O2 Delivery Device POC PEEP Sodium 129 L Potassium 4.0 Chloride 92 L Carbon Dioxide 24.0 Anion Gap 13 BUN 32 H Creatinine 1.41 H Estim Creat Clear Calc 58.96 Est GFR (MDRD) Af Amer 66 Est GFR (MDRD) Non-Af 55 L BUN/Creatinine Ratio 22.7 H Glucose 182 H Calcium 8.5 Total Bilirubin 1.60 H Direct Bilirubin 0.82 H AST 77 H ALT 32 Alkaline Phosphatase 121 H Troponin I 0.193 H B-Natriuretic Peptide Total Protein 8.4 H Albumin 3.1 L Globulin 5.3 H Albumin/Globulin Ratio Procalcitonin COVID-19 (MISAEL) 11/15/20 11/15/20 11/15/20 01:45 03:26 06:40 WBC RBC Hgb Hct MCV MCH MCHC RDW Std Deviation RDW Coeff of Yomi Plt Count MPV Immature Gran % (Auto) Neut % (Auto) Lymph % (Auto) Hayes % (Auto) Eos % (Auto) Baso % (Auto) Absolute Neuts (auto) Absolute Lymphs (auto) Nucleated RBC % D-Dimer Quant (PE/DVT) Specimen Type ART Sample Site L Radial pH 7.49 H Bicarbonate Actual 22.6 Total CO2 24 Base Excess -1 O2 Saturation 94 L O2 % 70 ABG pCO2 29.8 L ABG pO2 65 L [facility] Test Positive O2 Delivery Device BiPAP POC PEEP 8 Sodium Potassium Chloride Carbon Dioxide Anion Gap BUN Creatinine Estim Creat Clear Calc Est GFR (MDRD) Af Amer Est GFR (MDRD) Non-Af BUN/Creatinine Ratio Glucose Calcium Total Bilirubin Direct Bilirubin AST ALT Alkaline Phosphatase Troponin I B-Natriuretic Peptide 273.7 H Total Protein Albumin Globulin Albumin/Globulin Ratio Procalcitonin 0.58 H COVID-19 (MISAEL) 11/15/20 11/15/20 11/15/20 08:00 08:00 10:40 WBC RBC Hgb Hct MCV MCH MCHC RDW Std Deviation RDW Coeff of Yomi Plt Count MPV Immature Gran % (Auto) Neut % (Auto) Lymph % (Auto) Hayes % (Auto) Eos % (Auto) Baso % (Auto) Absolute Neuts (auto) Absolute Lymphs (auto) Nucleated RBC % D-Dimer Quant (PE/DVT) Specimen Type Sample Site pH Bicarbonate Actual Total CO2 Base Excess O2 Saturation O2 % ABG pCO2 ABG pO2 [facility] Test O2 Delivery Device POC PEEP Sodium Potassium Chloride Carbon Dioxide Anion Gap BUN Creatinine Estim Creat Clear Calc Est GFR (MDRD) Af Amer Est GFR (MDRD) Non-Af BUN/Creatinine Ratio Glucose Calcium Total Bilirubin Direct Bilirubin AST ALT Alkaline Phosphatase Troponin I 0.816 H* 0.795 H* B-Natriuretic Peptide Total Protein Albumin Globulin Albumin/Globulin Ratio Procalcitonin COVID-19 (MISAEL) Detected 11/15/20 11/15/20 11/16/20 13:10 13:10 04:15 WBC 18.4 H RBC 5.29 Hgb 15.0 Hct 45.0 MCV 85.1 MCH 28.4 MCHC 33.3 RDW Std Deviation 42.5 RDW Coeff of Yomi 13.7 Plt Count 393 MPV 10.2 Immature Gran % (Auto) 4.800 H Neut % (Auto) 82.3 H Lymph % (Auto) 6.9 L Hayes % (Auto) 5.3 Eos % (Auto) 0.2 Baso % (Auto) 0.5 Absolute Neuts (auto) 15.1 H Absolute Lymphs (auto) 1.27 Nucleated RBC % 0.3 D-Dimer Quant (PE/DVT) Specimen Type Sample Site pH Bicarbonate Actual Total CO2 Base Excess O2 Saturation O2 % ABG pCO2 ABG pO2 [facility] Test O2 Delivery Device POC PEEP Sodium 134 L Potassium 3.6 Chloride 98 Carbon Dioxide 27.0 Anion Gap 9 BUN 36 H Creatinine 1.13 Estim Creat Clear Calc 78.21 Est GFR (MDRD) Af Amer 86 Est GFR (MDRD) Non-Af 71 BUN/Creatinine Ratio 31.9 H Glucose 147 H Calcium 7.8 L Total Bilirubin Direct Bilirubin AST ALT Alkaline Phosphatase Troponin I 0.820 H* B-Natriuretic Peptide Total Protein Albumin Globulin Albumin/Globulin Ratio Procalcitonin COVID-19 (MISAEL) 11/16/20 04:15 WBC RBC Hgb Hct MCV MCH MCHC RDW Std Deviation RDW Coeff of Yomi Plt Count MPV Immature Gran % (Auto) Neut % (Auto) Lymph % (Auto) Hayes % (Auto) Eos % (Auto) Baso % (Auto) Absolute Neuts (auto) Absolute Lymphs (auto) Nucleated RBC % D-Dimer Quant (PE/DVT) Specimen Type Sample Site pH Bicarbonate Actual Total CO2 Base Excess O2 Saturation O2 % ABG pCO2 ABG pO2 [facility] Test O2 Delivery Device POC PEEP Sodium 136 Potassium 3.8 Chloride 98 Carbon Dioxide 30.0 Anion Gap 8 BUN 40 H Creatinine 1.03 Estim Creat Clear Calc 85.80 Est GFR (MDRD) Af Amer 95 Est GFR (MDRD) Non-Af 79 BUN/Creatinine Ratio 38.8 H Glucose 124 H Calcium 8.3 L Total Bilirubin 1.00 Direct Bilirubin AST 45 H ALT 26 Alkaline Phosphatase 132 H Troponin I B-Natriuretic Peptide Total Protein 7.4 Albumin 2.7 L Globulin 4.7 H Albumin/Globulin Ratio 0.6 L Procalcitonin COVID-19 (MISAEL) Microbiology 11/15/20 10:40 Urine Catheter - Catheter Legionella Antigen - Final 11/15/20 10:40 Urine Catheter - Catheter Streptococcus pneumoniae Antigen (M - Final 11/15/20 05:27 Mucosa - Nose Influenza Types A,B Direct FA (ASHLI) - Final 11/15/20 01:45 Mucosa - Nose SARS-CoV-2 Antigen (Rapid) - Final Clinical Impression(s) from Imaging Studies Chest X-Ray 11/15/20 01:58 IMPRESSION: Confluent groundglass opacities are seen more prominent in the lung bases , may represent bilateral bacterial pneumonia , ARDS or viral pneumonia (COVID-19 ?). Electronically Signed: Russ Andujar MD at 5:06 EDT Tel , Service support , Chest CTA 11/15/20 02:32 IMPRESSION: No overt demonstrated pulmonary embolism, aneurysm, leak or arterial dissection. Cardiac motion is degrading the detail assessment, subtle particularly peripheral pulmonary emboli could be obscured. Cardiomegaly and coronary artery disease. Ground glass opacification likely pulmonary edema. This could represent an inflammatory/infectious process rather than vascular congestion in this patient. Other nonacute findings as outlined above. Electronically Signed: Bebe Rodriguez MD at 4:11 EDT , Service support , Medical Necessity - Tobacco Use Smoking Status: Never smoker Assessment/Plan All Active Problems (Last Updated 11/15/20 @ 05:[address] Angel Patel MD) Respiratory failure (Acute) Pulmonary edema (Acute) Acute hypoxemic respiratory failure (Acute) Hypertensive emergency (Acute) RECOMMENDATIONS: 1. Continue remdesivir as ordered. Continue to monitor liver and renal function. 2. Continue Decadron to complete 10-day treatment course. 3. Await results of echocardiogram. 4. Continue diuretics as tolerated by hemodynamics and renal function. 5. Antihypertensive regimen is ordered. 6. If cultures remain negative over the next 24 hours, antibiotics can be discontinued. 7. Continue patient on heated high flow oxygen and wean FiO2 to maintain saturations at or above 90%. IMPRESSIONS: 1. Acute hypoxemic respiratory failure secondary to COVID-19 pneumonia The patient's respiratory failure is likely multifactorial with COVID-19 pneumonia largely contributing, along with uncontrolled hypertension and possible CHF. The patient will be continued on appropriate medical therapy for his Covid infection, including remdesivir and Decadron to complete treatment courses. If cultures remain negative over the next 24 hours, antibiotics can be discontinued. Echocardiogram is currently pending. In the interim, diuretic therapy will be continued as tolerated by hemodynamics and renal function. The patient will be continued on heated high flow oxygen with a goal to wean FiO2 to maintain saturations at or above 90%. 2. Troponin elevation/questionable CHF Cardiology is currently following. Continue current medical management while awaiting results of echocardiogram. 3. Acute kidney injury Concern for prerenal etiology. Creatinine has improved at this time. Continue to monitor urine output. No current indication for renal replacement therapy. 4. Hypertension/obesity Complicates care, management, recovery and prognosis. Continue current antihypertensive regimen. This note was generated with [employer] dictation software. It may contain incorrect words, spelling, and punctuation that were not noted in checking the note before signing. Inpatient E&M: 19140 Subs Hosp L3
[2020-11-16] MEDS: Nitroglycerin Oint 1 INCH PACKET TD (06:33)
[2020-11-16] MEDS: dexAMETHasone 10 MG/ML Vial 6 MG IV (09:43)
[2020-11-16] MEDS: Furosemide 40 MG/4 ML Vial IV ×2 (09:44→16:54)
[2020-11-16] MEDS: Metoprolol Tartrate 25 MG Tablet PO ×2 (09:44→20:36)
[2020-11-16] MEDS: Enoxaparin 120 MG/0.8 ML Syringe SC ×2 (09:44→20:35)
[2020-11-16] MEDS: Lisinopril 20 MG Tablet PO (09:44)
--- NOTE | 2020-11-16 10:00 | PN_ITS ---
Patient Problems: Active and Suspected Problems (Last Updated 11/15/20 @ 05:[address] Angel Patel MD) Respiratory failure (Acute) Pulmonary edema (Acute) Acute hypoxemic respiratory failure (Acute) Hypertensive emergency (Acute) Subjective: Patient seen and examined. He is being managed for acute hypoxic respiratory failure due to COVID 19 infection. He feels better today. He is still coughing. He is on AirVO at 60L of oxygen. Review of systems otherwise negative. He remains tachypneic. Vitals/I&O's: Vital Signs Temp Pulse Resp BP Pulse Ox 99.2 F H 83 28 H 135/90 H 94 11/16/20 08:00 11/16/20 09:44 11/16/20 09:18 11/16/20 09:44 11/16/20 09:18 Oxygen Flow Rate (L/min) 60 Oxygen Delivery Method Airvo Weight: 273 lb 2.444 oz Body Mass Index (BMI) 37.8 Intake and Output for Last 24 Hours 11/14/20 11/15/20 11/16/20 23:59 23:59 23:59 Intake Total 605 / 605 255 / 255 Output Total 2050 / 2225 700 / 700 Balance -1445 / -1620 -445 / -445 General: Alert, Oriented x3, Cooperative, No apparent distress HEENT: Atraumatic, PERRLA, EOMI, Normocephalic Oral: Dry Mucosa Neck: Supple, No JVD, Negative Carotid Bruits Lungs: Tachypneic, - - Bilateral crackles and mild wheezing. On 60 L of oxygen via airVo Cardiovascular: Regular rate, Regular Rhythm, Normal S1, Normal S2, No murmurs Abdomen: Bowel Sounds Present, Soft, Non Tender, Non-Distended, No Hepato- splenomegaly Extremities: No clubbing, No cyanosis, No edema, Capillary Refill Less than 3 Seconds Skin: No rashes, No breakdown Musculoskeletal: No Tenderness to Palpation of Joints or Extremities Lymphatic: No Cervical, Supraclavicular, or Inguinal Adenopathy Neurological: Cranial nerves II-XII grossly intact, Neuro grossly intact, Motor Exam 5/5 strength throughout Psych/Mental Status: Normal Affect, Appropriate, Alert and oriented to time, place, person, mood and affect Microbiology Past 72 Hours 11/15/20 10:40 Urine Catheter - Catheter Legionella Antigen - Final 11/15/20 10:40 Urine Catheter - Catheter Streptococcus pneumoniae Antigen (M - Final 11/15/20 05:27 Mucosa - Nose Influenza Types A,B Direct FA (ASHLI) - Final 11/15/20 01:45 Mucosa - Nose SARS-CoV-2 Antigen (Rapid) - Final Laboratory Results 11/15/20 08:00: COVID-19 (MISAEL) Detected 11/15/20 10:40: Troponin I 0.795 H* 11/15/20 13:10: Troponin I 0.820 H* 11/15/20 13:10: Sodium 134 L, Potassium 3.6, Chloride 98, Carbon Dioxide 27.0, Anion Gap 9, BUN 36 H, Creatinine 1.13, Estim Creat Clear Calc 78.21, Est GFR (MDRD) Af Amer 86, Est GFR (MDRD) Non-Af 71, BUN/Creatinine Ratio 31.9 H, Glucose 147 H, Calcium 7.8 L 11/16/20 04:15: WBC 18.4 H, RBC 5.29, Hgb 15.0, Hct 45.0, MCV 85.1, MCH 28.4, MCHC 33.3, RDW Std Deviation 42.5, RDW Coeff of Yomi 13.7, Plt Count 393, MPV 10.2, Immature Gran % (Auto) 4.800 H, Neut % (Auto) 82.3 H, Lymph % (Auto) 6.9 L , [place] % (Auto) 5.3, Eos % (Auto) 0.2, Baso % (Auto) 0.5, Absolute Neuts (auto) 15.1 H, Absolute Lymphs (auto) 1.27, Nucleated RBC % 0.3 11/16/20 04:15: Sodium 136, Potassium 3.8, Chloride 98, Carbon Dioxide 30.0, A nion Gap 8, BUN 40 H, Creatinine 1.03, Estim Creat Clear Calc 85.80, Est GFR (MDRD) Af Amer 95, Est GFR (MDRD) Non-Af 79, BUN/Creatinine Ratio 38.8 H, Glucose 124 H, Calcium 8.3 L, Total Bilirubin 1.00, AST 45 H, ALT 26, Alkaline Phosphatase 132 H, Total Protein 7.4, Albumin 2.7 L, Globulin 4.7 H, Albumin/Globulin Ratio 0.6 L Diagnostic Data Chest X-Ray 11/15/20 01:58 IMPRESSION: Confluent groundglass opacities are seen more prominent in the lung bases , may represent bilateral bacterial pneumonia , ARDS or viral pneumonia (COVID-19 ?). Electronically Signed: Russ Andujar MD at 5:06 EDT Tel , Service support , Chest CTA 11/15/20 02:32 IMPRESSION: No overt demonstrated pulmonary embolism, aneurysm, leak or arterial dissection. Cardiac motion is degrading the detail assessment, subtle particularly peripheral pulmonary emboli could be obscured. Cardiomegaly and coronary artery disease. Ground glass opacification likely pulmonary edema. This could represent an inflammatory/infectious process rather than vascular congestion in this patient. Other nonacute findings as outlined above. Electronically Signed: Bebe Rodriguez MD at 4:11 EDT , Service support , Current Medications Albuterol Sulfate (Albuterol 2.5 Mg/3 Ml Vial.Neb.) 2.5 mg INHALATION Q2H PRN PRN PRN Reason: SOB/Wheezing Dexamethasone Sodium Phosphate (Dexamethasone 10 Mg/Ml Vial) 6 mg IV DAILY [facility] Stop: 11/24/20 10:01 Last Admin: 11/16/20 09:43 Dose: 6 mg Documented by: Enoxaparin Sodium (Enoxaparin 120 Mg/0.8 Ml Syringe) 120 mg SC BID [facility] Last Admin: 11/16/20 09:44 Dose: 120 mg Documented by: Furosemide (Furosemide 40 Mg/4 Ml Vial) 40 mg IV BID@1000,1800 [facility] Last Admin: 11/16/20 09:44 Dose: 40 mg Documented by: Sodium Chloride () 250 mls @ 15 mls/hr IV .[id number] PRN PRN Reason: Saline Flush Ceftriaxone Sodium (Rocephin) 1 gm in 50 mls @ 100 mls/hr IV Q24@2200 [facility] Last Infusion: 11/15/20 23:34 Dose: Infused Documented by: Azithromycin 500 mg/ Dextrose 255 mls @ 250 mls/hr IV Q24@2200 [facility] Last Infusion: 11/16/20 00:45 Dose: Infused Documented by: Remdesivir 100 mg/ Sodium (Chloride) 250 mls @ 125 mls/hr IV DAILY [facility]; Prot ocol Stop: 11/19/20 11:59 Last Admin: 11/16/20 09:51 Dose: 125 mls/hr Documented by: Lisinopril (Lisinopril 20 Mg Tablet) 20 mg PO DAILY [facility] Last Admin: 11/16/20 09:44 Dose: 20 mg Documented by: Melatonin (Melatonin 3 Mg Tablet) 3 mg PO QHS PRN PRN PRN Reason: INSOMNIA Metoprolol Tartrate (Metoprolol Tartrate 25 Mg Tablet) 25 mg PO BID [facility] Last Admin: 11/16/20 09:44 Dose: 25 mg Documented by: Nitroglycerin (Nitroglycerin Oint 1 Inch Packet) 1 inch TD Q6 [facility] Last Admin: 11/16/20 06:33 Dose: 1 inch Documented by: Ondansetron HCl (Ondansetron 4 Mg/2 Ml Vial) 4 mg IV Q8H PRN PRN PRN Reason: NAUSEA/VOMITING Sodium Chloride (0.9% Saline Lock 10 Ml Syringe) 10 - 40 ml IV UD PRN PRN Reason: SALINE FLUSH STROKE Vital Signs/Narrative: Vital Signs Temp Pulse Resp BP BP Pulse Ox 11/16/20 09:44 83 135/90 H 11/16/20 09:18 81 28 H 94 11/16/20 09:00 83 31 H 122/75 H 96 11/16/20 08:00 99.2 F H 80 34 H 135/102 H 98 11/16/20 07:15 84 30 H 97 11/16/20 07:00 83 29 H 119/83 H 97 Medical Necessity - Tobacco Use Smoking Status: Never smoker Assessment/Plan All Active Problems (Last Updated 11/15/20 @ 05:[address] Angel Patel MD) Respiratory failure (Acute) Pulmonary edema (Acute) Acute hypoxemic respiratory failure (Acute) Hypertensive emergency (Acute) #Acute hypoxic respiratory failure due to COVID 19 infection * on 60L of oxygen via AirVo * on breathing treatments with bronchodilators * on IV decadron and remdesivir * titrate oxygen to maintain sats>90% * critical care on board * on IV ceftriazone and azithromycin * #COVID 19 infection * as above. wbc still remains elevated at 18,000. * #Nonstemi * troponin peaked at 0.820 * cardiology on board; 2D echo ordered and is pending * likely a type II myocardial infarct due to severe hypoxemia * #Elevated liver enzymes * stable. AST down to 45 and ALP trended up slightly to 132. Will trend * * #JARRET: resovled./ Cr was 1.41 on admission, and is now down to 1.03 #Hyponatremia * resolved. Sodium is now 136 * #Thrombocytosis: resolved. platelets now down to 393 #Morbid obesity: BMI is 37. This complicates acute care, expected recovery and prognosis DVT prophylaxis: lovenox Inpatient E&M: 47515 [facility] Hosp L3
--- NOTE | 2020-11-16 11:05 | CASEMGMT ---
VERONICA RODRIGUEZ called patient in room for initial transition planning/care coordination assessment. VERONICA RODRIGUEZ introduced self and role at [facility]. Patient lying in bed, alert and oriented. Patient willing to participate in assessment and is able to answer all questions appropriately. Care providers, pharmacy, and demographics verified. Patient wishes to discharge home, denies need for home health at this time. Patient states he has no further needs or concerns at this time. SW aware of self-pay status. CM to follow for discharge planning needs that may arise. PCP: No PCP, list to be provided in resource packet Specialists: none Preferred Pharmacy: none Insurance: none Prescription Benefit: none Living Will/HPOA: none LNOK: mother, sister Living Arrangements: patient states that he lives with mother in a 2 story home. Patient states he is independent at home and able to ambulate stairs. Patient states that his mother has no been sick. VERONICA RODRIGUEZ stressed that importance of mother isolating at home and to follow-up with PCP for further instructions. Patient states he has sister that would be able to provided groceries and supplies for patient and mother. Transportation: self, mother DME/HHC: Patient states he has cane at home. Patient is currently on Airvo, will monitor for need for home oxygen at discharge. Disposition Plan: Patient to discharge home with family support and follow-up plans in place. Monitor for home oxygen. Anuja KERR, RN, CM
--- NOTE | 2020-11-16 11:15 | CASEMGMT ---
Resources given to RN to bring in to pt, as pt is self pay. Included in packet was information for [employer], [facility], Hospital van, multiple prescription assist programs, Medicaid application, [facility] financial assist application, list of [facility], and food pantry information. MARCELA Pinzon
--- NOTE | 2020-11-16 13:02 | ECHOL_ITS ---
Reason For Study: Dyspnea/SOB Procedure This was a limited 2D transthoracic echocardiogram. The exam was abbreviated due to the COVID 19 protocol. Exam performed portable in ICU/CCU. Left Ventricle Normal LV size. Left ventricular systolic function is normal. The estimated ejection fraction is 65 %. No regional wall motion abnormalities noted. Right Ventricle Normal RV size. Normal systolic function. Mitral Valve Normal mitral valve. Great Vessels Normal aortic root. Pericardium/Pleural No pericardial effusion. MMode/2D Measurements & Calculations LVIDd: 4.4 cm IVSd: 1.6 cm LVIDs: 2.3 cm LVPWd: 1.4 cm FS: 48.3 % ECHO/Echo, Limited Study Interpretation Summary Normal LV size. Left ventricular systolic function is normal. The estimated ejection fraction is 65 %. Ordering Physician: Cole Bledsoe Performed By: Kalie Wise, MONTRELL, RVT
[2020-11-16] MEDS: Ceftriaxone 1 GM/50 ML BAG IV (20:34)
[2020-11-16] MEDS: MELATONIN 3 MG TABLET PO (20:35)
[2020-11-16] MEDS: 0.9% Saline Lock 10 ML Syringe IV (20:35)
[2020-11-17] VITALS (29 sets, daily range): BP systolic 106–166; BP diastolic 48–113; PULSE 60–86; RESP 12–35; TEMP 37.2–37.6; O2SAT 9–98
[2020-11-17 04:51] LABS: Hematocrit 45.2 % (40-54); Hemoglobin 14.8 g/dL (13.0-16.5); Mean Corp Hgb Conc 32.7 g/dL (32-36); Mean Corpuscular Hgb 28.4 pg (27.0-32.0); Mean Corpuscular Volume 86.6 fL (80-94); Mean Platelet Vol. 10.2 fl (6.2-12.0); POSITIVE COUNT YES; POSITIVE MORPHOLOGY YES; Platelet Count 386 K/mm3 (150-450); RBC Distribution Width CV 13.6 % (11.6-14.6); RBC Distribution Width SD 42.9 fl (35.1-43.9); Red Blood Count 5.22 M/mm3 (4.6-6.2); White Blood Count 18.1 K/mm3 (4.4-11.0)
[2020-11-17 04:55] LABS: Differential Indicated MANUAL DIFF
[2020-11-17 05:06] LABS: Anion Gap 6 (5-15); BUN 41 mg/dL (7-18); BUN/Creat Ratio 41.7 RATIO (10-20); Calcium,Total 8.2 mg/dL (8.5-10.1); Chloride 95 mmol/L (98-107); Creatinine, Serum 0.98 mg/dL (0.70-1.30); EST Glomerular Filtration Rate 83 mL/min (>60); Est Glom Filt Rate - Afr Amer 101 mL/min (>60); Estimated Creatinine Clearance 90.18 ml/min; Glucose 115 mg/dL (74-106); Potassium 3.8 mmol/L (3.5-5.1); Sodium Level 133 mmol/L (136-145)
[2020-11-17 05:19] LABS: Lymphocyte 11 % (19-41); Metamyelocyte 3 % (0-1); Monocyte 5 % (0-10); Neutrophil-Band 3 % (0-5); Neutrophil-Segmented 78 % (47-70); Total Cells Counted 100 (MANUAL DIFF)
[2020-11-17 05:23] LABS: Absolute Lymphocyte Count 1.99 X10^3/uL (0.83-4.51); Absolute Neutrophil Count 14.6 X10^3/uL (2.0-7.7); Platelet Estimate ADEQUATE (ADEQ); Red Cell Morphology NORM C+C NORMAL (NORM C&C)
--- NOTE | 2020-11-17 05:46 | PCM.PN.INT ---
Subjective: The patient was seen and examined at the bedside this morning. Events from the last 24 hours have been reviewed. The patient was maintained on Airvo heated high flow throughout the day yesterday and placed back on BiPAP for overnight support. The patient remains on remdesivir, Decadron, therapeutic Lovenox and antimicrobials. Liver and renal function remained stable. Objective: The patient's most recent lab work, culture data and imaging studies have all been personally reviewed. Coronavirus PCR was positive on November 15. Strep and urine Legionella antigens were negative. Rapid influenza screen was negative. Blood cultures have shown no growth to date. General: Alert, Cooperative, No apparent distress HEENT: Atraumatic, Normocephalic Oral: Moist Mucosa, No Gingival or Mucosal Lesions/ Ulcerations Neck: Supple, No Nodes, Trachea Midline Lungs: Diminished, Rales, Tachypneic Cardiovascular: Regular rate, Regular Rhythm Abdomen: Bowel Sounds Present, Soft, Non Tender, Obese Extremities: No clubbing, No cyanosis, Edema Skin: No breakdown Musculoskeletal: No Tenderness to Palpation of Joints or Extremities, No Muscle Wasting Lymphatic: No Cervical, Supraclavicular, or Inguinal Adenopathy Neurological: Cranial nerves II-XII grossly intact, Neuro grossly intact Psych/Mental Status: Normal Affect, Appropriate Vital Signs Temp Pulse Resp BP Pulse Ox 99.1 F 69 31 H 154/97 H 95 11/17/20 04:00 11/17/20 05:00 11/17/20 05:00 11/17/20 05:00 11/17/20 05:00 Oxygen Flow Rate (L/min) 60 Oxygen Delivery Method Bi-pap Weight: 272 lb 14.916 oz Body Mass Index (BMI) 37.8 Intake and Output for Last 24 Hours 11/15/20 11/16/20 11/17/20 23:59 23:59 23:59 Intake Total 605 / 605 870 / 990 120 / 120 Output Total 2050 / 2225 2600 / 2950 750 / 750 Balance -1445 / -1620 -1730 / -1960 -630 / -630 Labs (Last 48 Hours) 11/15/20 11/15/20 11/15/20 06:40 08:00 08:00 WBC RBC Hgb Hct MCV MCH MCHC RDW Std Deviation RDW Coeff of Yomi Plt Count MPV Immature Gran % (Auto) Neut % (Auto) Lymph % (Auto) [place] % (Auto) Eos % (Auto) Baso % (Auto) Absolute Neuts (auto) Absolute Lymphs (auto) Total Counted Neutrophils % (Manual) Band Neutrophils % Lymphocytes % (Manual) Monocytes % (Manual) Metamyelocytes % Nucleated RBC % Diff Path Review Platelet Estimate RBC Morphology Sodium Potassium Chloride Carbon Dioxide Anion Gap BUN Creatinine Estim Creat Clear Calc Est GFR (MDRD) Af Amer Est GFR (MDRD) Non-Af BUN/Creatinine Ratio Glucose Calcium Total Bilirubin AST ALT Alkaline Phosphatase Troponin I 0.816 H* Total Protein Albumin Globulin Albumin/Globulin Ratio Procalcitonin 0.58 H COVID-19 (MISAEL) Detected 11/15/20 11/15/20 11/15/20 10:40 13:10 13:10 WBC RBC Hgb Hct MCV MCH MCHC RDW Std Deviation RDW Coeff of Yomi Plt Count MPV Immature Gran % (Auto) Neut % (Auto) Lymph % (Auto) [place] % (Auto) Eos % (Auto) Baso % (Auto) Absolute Neuts (auto) Absolute Lymphs (auto) Total Counted Neutrophils % (Manual) Band Neutrophils % Lymphocytes % (Manual) Monocytes % (Manual) Metamyelocytes % Nucleated RBC % Diff Path Review Platelet Estimate RBC Morphology Sodium 134 L Potassium 3.6 Chloride 98 Carbon Dioxide 27.0 Anion Gap 9 BUN 36 H Creatinine 1.13 Estim Creat Clear Calc 78.21 Est GFR (MDRD) Af Amer 86 Est GFR (MDRD) Non-Af 71 BUN/Creatinine Ratio 31.9 H Glucose 147 H Calcium 7.8 L Total Bilirubin AST ALT Alkaline Phosphatase Troponin I 0.795 H* 0.820 H* Total Protein Albumin Globulin Albumin/Globulin Ratio Procalcitonin COVID-19 (MISAEL) 11/16/20 11/16/20 11/17/20 04:15 04:15 04:40 WBC 18.4 H 18.1 H RBC 5.29 5.22 Hgb 15.0 14.8 Hct 45.0 45.2 MCV 85.1 86.6 MCH 28.4 28.4 MCHC 33.3 32.7 RDW Std Deviation 42.5 42.9 RDW Coeff of Yomi 13.7 13.6 Plt Count 393 386 MPV 10.2 10.2 Immature Gran % (Auto) 4.800 H Neut % (Auto) 82.3 H Not Reportable Lymph % (Auto) 6.9 L [place] % (Auto) 5.3 Eos % (Auto) 0.2 Baso % (Auto) 0.5 Absolute Neuts (auto) 15.1 H 14.6 H Absolute Lymphs (auto) 1.27 1.99 Total Counted 100 Neutrophils % (Manual) 78 H Band Neutrophils % 3 Lymphocytes % (Manual) 11 L Monocytes % (Manual) 5 Metamyelocytes % 3 H Nucleated RBC % 0.3 Diff Path Review May foll Platelet Estimate ADEQUATE RBC Morphology NORM C+C Sodium 136 Potassium 3.8 Chloride 98 Carbon Dioxide 30.0 Anion Gap 8 BUN 40 H Creatinine 1.03 Estim Creat Clear Calc 85.80 Est GFR (MDRD) Af Amer 95 Est GFR (MDRD) Non-Af 79 BUN/Creatinine Ratio 38.8 H Glucose 124 H Calcium 8.3 L Total Bilirubin 1.00 AST 45 H ALT 26 Alkaline Phosphatase 132 H Troponin I Total Protein 7.4 Albumin 2.7 L Globulin 4.7 H Albumin/Globulin Ratio 0.6 L Procalcitonin COVID-19 (MISAEL) 11/17/20 04:40 WBC RBC Hgb Hct MCV MCH MCHC RDW Std Deviation RDW Coeff of Yomi Plt Count MPV Immature Gran % (Auto) Neut % (Auto) Lymph % (Auto) [place] % (Auto) Eos % (Auto) Baso % (Auto) Absolute Neuts (auto) Absolute Lymphs (auto) Total Counted Neutrophils % (Manual) Band Neutrophils % Lymphocytes % (Manual) Monocytes % (Manual) Metamyelocytes % Nucleated RBC % Diff Path Review Platelet Estimate RBC Morphology Sodium 133 L Potassium 3.8 Chloride 95 L Carbon Dioxide 32.0 Anion Gap 6 BUN 41 H Creatinine 0.98 Estim Creat Clear Calc 90.18 Est GFR (MDRD) Af Amer 101 Est GFR (MDRD) Non-Af 83 BUN/Creatinine Ratio 41.7 H Glucose 115 H Calcium 8.2 L Total Bilirubin AST ALT Alkaline Phosphatase Troponin I Total Protein Albumin Globulin Albumin/Globulin Ratio Procalcitonin COVID-19 (MISAEL) Microbiology 11/15/20 10:40 Urine Catheter - Catheter Legionella Antigen - Final 11/15/20 10:40 Urine Catheter - Catheter Streptococcus pneumoniae Antigen (M - Final 11/15/20 05:27 Mucosa - Nose Influenza Types A,B Direct FA (ASHLI) - Final 11/15/20 01:45 Mucosa - Nose SARS-CoV-2 Antigen (Rapid) - Final Clinical Impression(s) from Imaging Studies Chest X-Ray 11/15/20 01:58 IMPRESSION: Confluent groundglass opacities are seen more prominent in the lung bases , may represent bilateral bacterial pneumonia , ARDS or viral pneumonia (COVID-19 ?). Electronically Signed: Russ Andujar MD at 5:06 EDT Tel , Service support , Chest CTA 11/15/20 02:32 IMPRESSION: No overt demonstrated pulmonary embolism, aneurysm, leak or arterial dissection. Cardiac motion is degrading the detail assessment, subtle particularly peripheral pulmonary emboli could be obscured. Cardiomegaly and coronary artery disease. Ground glass opacification likely pulmonary edema. This could represent an inflammatory/infectious process rather than vascular congestion in this patient. Other nonacute findings as outlined above. Electronically Signed: Bebe Rodriguez MD at 4:11 EDT , Service support , Echocardiogram 11/16/20 13:02 Interpretation Summary Normal LV size. Left ventricular systolic function is normal. The estimated ejection fraction is 65 %. Ordering Physician: Cole Bledsoe Performed By: Kalie Wise, ILANCS, RVT Medical Necessity - Tobacco Use Smoking Status: Never smoker Assessment/Plan All Active Problems (Last Updated 11/15/20 @ 05:[address] Angel Patel MD) Respiratory failure (Acute) Pulmonary edema (Acute) Acute hypoxemic respiratory failure (Acute) Hypertensive emergency (Acute) RECOMMENDATIONS: 1. Continue remdesivir as ordered. Continue to monitor liver and renal function. 2. Continue Decadron to complete 10-day treatment course. 3. Continue diuretics as tolerated by hemodynamics and renal function. 4. Antihypertensive regimen is ordered. 5. Okay to discontinue antibiotics from my perspective. 6. Continue patient on heated high flow oxygen and wean FiO2 to maintain saturations at or above 90%. IMPRESSIONS: 1. Acute hypoxemic respiratory failure secondary to COVID-19 pneumonia The patient's respiratory failure is likely multifactorial with COVID-19 pneumonia largely contributing, along with uncontrolled hypertension and possible CHF. The patient will be continued on appropriate medical therapy for his Covid infection, including remdesivir and Decadron to complete treatment courses. Given negative culture data, antibiotics can be discontinued from my perspective. Echocardiogram was largely unrevealing. The patient will be continued on diuretics, nonetheless, as tolerated by hemodynamics and renal function. Continue heated high flow with a goal to wean FiO2 to maintain saturations at or above 90%. 2. Acute kidney injury Resolved. Concern for prerenal etiology. Creatinine has improved at this time. Continue to monitor urine output. No current indication for renal replacement therapy. 3. Hypertension/obesity Complicates care, management, recovery and prognosis. Continue current antihypertensive regimen. This note was generated with [employer] dictation software. It may contain incorrect words, spelling, and punctuation that were not noted in checking the note before signing. Inpatient E&M: 74652 Subs Hosp L2
--- NOTE | 2020-11-17 07:25 | PN_ITS ---
Patient Problems: Active and Suspected Problems (Last Updated 11/15/20 @ 05:[address] Angel Patel MD) Respiratory failure (Acute) Pulmonary edema (Acute) Acute hypoxemic respiratory failure (Acute) Hypertensive emergency (Acute) Subjective: Patient seen and examined. He had no complaints. He was on airflow throughout the day yesterday but had to be put on BiPAP overnight. He has remained hemodynamically stable and review of systems otherwise negative. He is still tachypneic and WBC is 18.1 today. Vitals/I&O's: Vital Signs Temp Pulse Resp BP Pulse Ox 99.1 F 60 30 H 124/91 H 96 11/17/20 04:00 11/17/20 07:00 11/17/20 07:00 11/17/20 07:00 11/17/20 07:00 Oxygen Flow Rate (L/min) 60 Oxygen Delivery Method Bi-pap Weight: 272 lb 14.916 oz Body Mass Index (BMI) 37.8 Intake and Output for Last 24 Hours 11/15/20 11/16/20 11/17/20 23:59 23:59 23:59 Intake Total 605 / 605 870 / 990 120 / 120 Output Total 2050 / 2225 2600 / 2950 750 / 750 Balance -1445 / -1620 -1730 / -1960 -630 / -630 General: Alert, Oriented x3, Cooperative, No apparent distress HEENT: Atraumatic, PERRLA, EOMI, Normocephalic Oral: Dry Mucosa Neck: Supple, No JVD, Negative Carotid Bruits Lungs: Tachypneic, - - Bilateral crackles and mild wheezing. On 60 L of oxygen via airVo Cardiovascular: Regular rate, Regular Rhythm, Normal S1, Normal S2, No murmurs Abdomen: Bowel Sounds Present, Soft, Non Tender, Non-Distended, No Hepato- splenomegaly Extremities: No clubbing, No cyanosis, No edema, Capillary Refill Less than 3 Seconds Skin: No rashes, No breakdown Musculoskeletal: No Tenderness to Palpation of Joints or Extremities Lymphatic: No Cervical, Supraclavicular, or Inguinal Adenopathy Neurological: Cranial nerves II-XII grossly intact, Neuro grossly intact, Motor Exam 5/5 strength throughout Psych/Mental Status: Normal Affect, Appropriate, Alert and oriented to time, place, person, mood and affect Microbiology Past 72 Hours 11/15/20 10:40 Urine Catheter - Catheter Legionella Antigen - Final 11/15/20 10:40 Urine Catheter - Catheter Streptococcus pneumoniae Antigen (M - Final 11/15/20 05:27 Mucosa - Nose Influenza Types A,B Direct FA (ASHLI) - Final 11/15/20 01:45 Mucosa - Nose SARS-CoV-2 Antigen (Rapid) - Final Laboratory Results 11/17/20 04:40: WBC 18.1 H, RBC 5.22, Hgb 14.8, Hct 45.2, MCV 86.6, MCH 28.4, MCHC 32.7, RDW Std Deviation 42.9, RDW Coeff of Yomi 13.6, Plt Count 386, MPV 10.2, Neut % (Auto) Not Reportable, Absolute Neuts (auto) 14.6 H, Absolute Lymphs (auto) 1.99, Total Counted 100, Neutrophils % (Manual) 78 H, Band Neutrophils % 3, Lymphocytes % (Manual) 11 L, Monocytes % (Manual) 5, Metamyelocytes % 3 H, Diff Path Review May foll, Platelet Estimate ADEQUATE, RBC Morphology NORM C+C 11/17/20 04:40: Sodium 133 L, Potassium 3.8, Chloride 95 L, Carbon Dioxide 32.0, Anion Gap 6, BUN 41 H, Creatinine 0.98, Estim Creat Clear Calc 90.18, Est GFR (MDRD) Af Amer 101, Est GFR (MDRD) Non-Af 83, BUN/Creatinine Ratio 41.7 H, Glucose 115 H, Calcium 8.2 L Diagnostic Data Chest X-Ray 11/15/20 01:58 IMPRESSION: Confluent groundglass opacities are seen more prominent in the lung bases , may represent bilateral bacterial pneumonia , ARDS or viral pneumonia (COVID-19 ?). Electronically Signed: Russ Andujar MD at 5:06 EDT Tel , Service support , Chest CTA 11/15/20 02:32 IMPRESSION: No overt demonstrated pulmonary embolism, aneurysm, leak or arterial dissection. Cardiac motion is degrading the detail assessment, subtle particularly peripheral pulmonary emboli could be obscured. Cardiomegaly and coronary artery disease. Ground glass opacification likely pulmonary edema. This could represent an inflammatory/infectious process rather than vascular congestion in this patient. Other nonacute findings as outlined above. Electronically Signed: Bebe Rodriguez MD at 4:11 EDT , Service support , Echocardiogram 11/16/20 13:02 Interpretation Summary Normal LV size. Left ventricular systolic function is normal. The estimated ejection fraction is 65 %. ___ Ordering Physician: Cole Bledsoe Performed By: Kalie Wise, ILANCS, RVT Current Medications Albuterol Sulfate (Albuterol 2.5 Mg/3 Ml Vial.Neb.) 2.5 mg INHALATION Q2H PRN PRN PRN Reason: SOB/Wheezing Dexamethasone Sodium Phosphate (Dexamethasone 10 Mg/Ml Vial) 6 mg IV DAILY [facility] Stop: 11/24/20 10:01 Last Admin: 11/16/20 09:43 Dose: 6 mg Documented by: Enoxaparin Sodium (Enoxaparin 120 Mg/0.8 Ml Syringe) 120 mg SC BID [facility] Last Admin: 11/16/20 20:35 Dose: 120 mg Documented by: Furosemide (Furosemide 40 Mg/4 Ml Vial) 40 mg IV BID@1000,1800 [facility] Last Admin: 11/16/20 16:54 Dose: 40 mg Documented by: Sodium Chloride () 250 mls @ 15 mls/hr IV .[id number] PRN PRN Reason: Saline Flush Ceftriaxone Sodium (Rocephin) 1 gm in 50 mls @ 100 mls/hr IV Q24@2200 [facility] Last Infusion: 11/16/20 21:04 Dose: Infused Documented by: Azithromycin 500 mg/ Dextrose 255 mls @ 250 mls/hr IV Q24@2200 [facility] Last Infusion: 11/16/20 22:46 Dose: Infused Documented by: Remdesivir 100 mg/ Sodium (Chloride) 250 mls @ 125 mls/hr IV DAILY [facility]; Protocol Stop: 11/19/20 11:59 Last Infusion: 11/16/20 12:32 Dose: Infused Documented by: Lisinopril (Lisinopril 20 Mg Tablet) 20 mg PO DAILY [facility] Last Admin: 11/16/20 09:44 Dose: 20 mg Documented by: Melatonin (Melatonin 3 Mg Tablet) 3 mg PO QHS PRN PRN PRN Reason: INSOMNIA Last Admin: 11/16/20 20:35 Dose: 3 mg Documented by: Metoprolol Tartrate (Metoprolol Tartrate 25 Mg Tablet) 25 mg PO BID [facility] Last Admin: 11/16/20 20:36 Dose: 25 mg Documented by: Ondansetron HCl (Ondansetron 4 Mg/2 Ml Vial) 4 mg IV Q8H PRN PRN PRN Reason: NAUSEA/VOMITING Sodium Chloride (0.9% Saline Lock 10 Ml Syringe) 10 - 40 ml IV UD PRN PRN Reason: SALINE FLUSH Last Admin: 11/16/20 20:35 Dose: 10 ml Documented by: STROKE Vital Signs/Narrative: Vital Signs Temp Pulse Resp BP Pulse Ox 11/17/20 07:00 60 30 H 124/91 H 96 11/17/20 06:00 62 30 H 134/102 H 96 11/17/20 05:00 69 31 H 154/97 H 95 11/17/20 04:50 66 35 H 95 11/17/20 04:00 99.1 F 75 29 H 124/85 H 96 Medical Necessity - Tobacco Use Smoking Status: Never smoker Assessment/Plan All Active Problems (Last Updated 11/15/20 @ 05:[address] Angel Patel MD) Respiratory failure (Acute) Pulmonary edema (Acute) Acute hypoxemic respiratory failure (Acute) Hypertensive emergency (Acute) #Acute hypoxic respiratory failure due to COVID 19 infection * on 60L of oxygen via AirVo * on breathing treatments with bronchodilators * on IV decadron and remdesivir * titrate oxygen to maintain sats>90% * critical care on board * on IV ceftriazone and azithromycin * blood cultures show no growth after 48 hours, and urine for strep and legionella were negative * #COVID 19 infection * as above. wbc still 18,000 * #Nonstemi * troponin peaked at 0.820 * cardiology on board; 2D echo showed EF of 65%, with no regional wall motion abnormalities of LV, and normal LV size and function. * likely a type II myocardial infarct due to severe hypoxemia * #Elevated liver enzymes * stable. AST down to 45 and ALP trended up slightly to 132. Will trend * * #JARRET: resovled. #Hyponatremia * sodium is down to 133 today. will monitor * #Thrombocytosis: resolved. #Morbid obesity: BMI is 37. This complicates acute care, expected recovery and prognosis DVT prophylaxis: lovenox therapeutic dose Inpatient E&M: [id number] [facility] Hosp L3
[2020-11-17] MEDS: 0.9% Saline Lock 10 ML Syringe IV ×2 (10:28→18:10)
[2020-11-17] MEDS: Furosemide 40 MG/4 ML Vial IV ×2 (10:30→18:09)
[2020-11-17] MEDS: dexAMETHasone 10 MG/ML Vial 6 MG IV (10:30)
[2020-11-17] MEDS: Metoprolol Tartrate 25 MG Tablet PO ×2 (10:32→21:49)
[2020-11-17] MEDS: Lisinopril 20 MG Tablet PO (10:32)
[2020-11-17] MEDS: Enoxaparin 120 MG/0.8 ML Syringe SC ×2 (10:33→21:49)
[2020-11-17 11:23] LABS: Pathologist Review Reviewed
[2020-11-17] MEDS: Ceftriaxone 1 GM/50 ML BAG IV (21:49)
[2020-11-18] VITALS (23 sets, daily range): BP systolic 120–159; BP diastolic 71–98; PULSE 56–80; RESP 12–34; TEMP 35.9–37.3; O2SAT 91–97
[2020-11-18 04:27] LABS: Differential Indicated MANUAL DIFF; Hematocrit 45.7 % (40-54); Mean Corp Hgb Conc 32.8 g/dL (32-36); Mean Corpuscular Hgb 28.4 pg (27.0-32.0); Mean Corpuscular Volume 86.6 fL (80-94); POSITIVE COUNT YES; POSITIVE MORPHOLOGY YES; Platelet Count 370 K/mm3 (150-450); RBC Distribution Width CV 13.6 % (11.6-14.6); RBC Distribution Width SD 42.2 fl (35.1-43.9); Red Blood Count 5.28 M/mm3 (4.6-6.2); White Blood Count 18.2 K/mm3 (4.4-11.0)
[2020-11-18 04:39] LABS: Anion Gap 3 (5-15); BUN 34 mg/dL (7-18); BUN/Creat Ratio 42.4 RATIO (10-20); Chloride 95 mmol/L (98-107); EST Glomerular Filtration Rate 105 mL/min (>60); Est Glom Filt Rate - Afr Amer 127 mL/min (>60); Estimated Creatinine Clearance 110.47 ml/min; Glucose 111 mg/dL (74-106); Potassium 3.7 mmol/L (3.5-5.1); Sodium Level 132 mmol/L (136-145)
[2020-11-18 04:52] LABS: Absolute Neutrophil Count 15.7 X10^3/uL (2.0-7.7); Lymphocyte 12 % (19-41); Metamyelocyte 1 % (0-1); Monocyte 1 % (0-10); Neutrophil-Band 3 % (0-5); Neutrophil-Segmented 83 % (47-70); Platelet Estimate ADEQUATE (ADEQ); Red Cell Morphology NORM C+C NORMAL (NORM C&C); Total Cells Counted 100 (MANUAL DIFF)
--- NOTE | 2020-11-18 05:44 | PN_ITS ---
Subjective: The patient was seen and examined at the bedside this morning. Events from the last 24 hours have been reviewed. The patient is currently afebrile, hemodynamically stable and maintaining appropriate oxygen saturations on BiPAP currently. The patient was able to be weaned down to 50% FiO2 on Airvo heated high flow oxygen yesterday, prior to transitioning to BiPAP for overnight support. The patient is currently documented to be overall net negative 3+ liters for the hospital admission. Given the development of mild hyponatremia and rising bicarbonate, diuretics were discontinued this morning. The patient remains on remdesivir, Decadron and therapeutic Lovenox. Objective: The patient's most recent lab work, culture data and imaging studies have all been personally reviewed. Coronavirus PCR was positive on November 15. Strep and urine Legionella antigens were negative. Rapid influenza screen was negative. Blood cultures have shown no growth to date. General: Alert, Cooperative, No apparent distress HEENT: Atraumatic, Normocephalic Oral: No Gingival or Mucosal Lesions/ Ulcerations Neck: Supple, No Nodes, Trachea Midline Lungs: Diminished, Rales Cardiovascular: Regular rate, Regular Rhythm, Normal S1, Normal S2, No murmurs Abdomen: Bowel Sounds Present, Soft, Non Tender, Obese Extremities: No clubbing, No cyanosis Skin: No breakdown Musculoskeletal: No Tenderness to Palpation of Joints or Extremities Lymphatic: No Cervical, Supraclavicular, or Inguinal Adenopathy Neurological: Cranial nerves II-XII grossly intact, Neuro grossly intact Psych/Mental Status: Normal Affect, Appropriate Vital Signs Temp Pulse Resp BP Pulse Ox 98.7 F 56 L 26 H 147/91 H 94 11/18/20 05:00 11/18/20 05:00 11/18/20 05:00 11/18/20 05:00 11/18/20 05:00 Oxygen Flow Rate (L/min) 60 Oxygen Delivery Method Bi-pap Weight: 272 lb 14.916 oz Body Mass Index (BMI) 37.8 Intake and Output for Last 24 Hours 11/16/20 11/17/20 11/18/20 23:59 23:59 23:59 Intake Total 870 / 990 2739 / 2739 38.5 / 38.5 Output Total 2600 / 2950 2980 / 2980 Balance -1730 / -1960 -241 / -241 38.5 / 38.5 Labs (Last 48 Hours) 11/17/20 11/17/20 11/18/20 04:40 04:40 04:30 WBC 18.1 H 18.2 H RBC 5.22 5.28 Hgb 14.8 15.0 Hct 45.2 45.7 MCV 86.6 86.6 MCH 28.4 28.4 MCHC 32.7 32.8 RDW Std Deviation 42.9 42.2 RDW Coeff of Yomi 13.6 13.6 Plt Count 386 370 MPV 10.2 10.0 Neut % (Auto) Not Reportable Not Reportable Absolute Neuts (auto) 14.6 H 15.7 H Absolute Lymphs (auto) 1.99 2.20 Total Counted 100 100 Neutrophils % (Manual) 78 H 83 H Band Neutrophils % 3 3 Lymphocytes % (Manual) 11 L 12 L Monocytes % (Manual) 5 1 Metamyelocytes % 3 H 1 Diff Path Review Reviewed May foll Platelet Estimate ADEQUATE ADEQUATE RBC Morphology NORM C+C NORM C+C Sodium 133 L Potassium 3.8 Chloride 95 L Carbon Dioxide 32.0 Anion Gap 6 BUN 41 H Creatinine 0.98 Estim Creat Clear Calc 90.18 Est GFR (MDRD) Af Amer 101 Est GFR (MDRD) Non-Af 83 BUN/Creatinine Ratio 41.7 H Glucose 115 H Calcium 8.2 L 11/18/20 04:30 WBC RBC Hgb Hct MCV MCH MCHC RDW Std Deviation RDW Coeff of Yomi Plt Count MPV Neut % (Auto) Absolute Neuts (auto) Absolute Lymphs (auto) Total Counted Neutrophils % (Manual) Band Neutrophils % Lymphocytes % (Manual) Monocytes % (Manual) Metamyelocytes % Diff Path Review Platelet Estimate RBC Morphology Sodium 132 L Potassium 3.7 Chloride 95 L Carbon Dioxide 34.0 H Anion Gap 3 L BUN 34 H Creatinine 0.80 Estim Creat Clear Calc 110.47 Est GFR (MDRD) Af Amer 127 Est GFR (MDRD) Non-Af 105 BUN/Creatinine Ratio 42.4 H Glucose 111 H Calcium 8.0 L Microbiology 11/15/20 04:25 Blood Culture (Wb) - Left Wrist Blood Culture - Preliminary No growth in 48 hours. 11/15/20 01:45 Blood Culture (Wb) - Anticubital Right Blood Culture - Preliminary No growth in 48 hours. Clinical Impression(s) from Imaging Studies Chest X-Ray 11/15/20 01:58 IMPRESSION: Confluent groundglass opacities are seen more prominent in the lung bases , may represent bilateral bacterial pneumonia , ARDS or viral pneumonia (COVID-19 ?). Electronically Signed: Russ Andujar MD at 5:06 EDT Tel , Service support , Chest CTA 11/15/20 02:32 IMPRESSION: No overt demonstrated pulmonary embolism, aneurysm, leak or arterial dissection. Cardiac motion is degrading the detail assessment, subtle particularly peripheral pulmonary emboli could be obscured. Cardiomegaly and coronary artery disease. Ground glass opacification likely pulmonary edema. This could represent an inflammatory/infectious process rather than vascular congestion in this patient. Other nonacute findings as outlined above. Electronically Signed: Bebe Rodriguez MD at 4:11 EDT , Service support , Echocardiogram 11/16/20 13:02 Interpretation Summary Normal LV size. Left ventricular systolic function is normal. The estimated ejection fraction is 65 %. Ordering Physician: Cole Bledsoe Performed By: Kalie Wise, RDCS, RVT Medical Necessity - Tobacco Use Smoking Status: Never smoker Assessment/Plan All Active Problems (Last Updated 11/15/20 @ 05:[address] Angel Patel MD) Respiratory failure (Acute) Pulmonary edema (Acute) Acute hypoxemic respiratory failure (Acute) Hypertensive emergency (Acute) RECOMMENDATIONS: 1. Continue remdesivir as ordered. Continue to monitor liver and renal function. 2. Continue Decadron to complete 10-day treatment course. 3. Hold diuretics today. 4. Antihypertensive regimen as ordered. 5. Okay to discontinue antibiotics from my perspective. 6. Continue patient on heated high flow oxygen and wean FiO2 to maintain saturations at or above 90%. IMPRESSIONS: 1. Acute hypoxemic respiratory failure secondary to COVID-19 pneumonia The patient's respiratory failure is likely multifactorial with COVID-19 pneumonia largely contributing, along with uncontrolled hypertension and possible CHF. The patient will be continued on appropriate medical therapy for his Covid infection, including remdesivir and Decadron to complete treatment courses. Given negative culture data, antibiotics can be discontinued from my perspective. Echocardiogram was largely unrevealing. Diuretics to be held today given rising bicarbonate. Continue heated high flow with a goal to wean FiO2 to maintain saturations at or above 90%. 2. Acute kidney injury Resolved. Concern for prerenal etiology. Creatinine has improved at this time. Continue to monitor urine output. No current indication for renal replacement therapy. 3. Hypertension/obesity Complicates care, management, recovery and prognosis. Continue current antihypertensive regimen. This note was generated with [employer] dictation software. It may contain incorrect words, spelling, and punctuation that were not noted in checking the note before signing. Inpatient E&M: [id number] Subs Hosp L2
--- NOTE | 2020-11-18 07:42 | PN_ITS ---
Patient Problems: Active and Suspected Problems (Last Updated 11/15/20 @ 05:[address] Angel Patel MD) Respiratory failure (Acute) Pulmonary edema (Acute) Acute hypoxemic respiratory failure (Acute) Hypertensive emergency (Acute) Subjective: Patient seen and examined. he has no complaints today. He is now on AirVO 50% and was on BIPAP qhs. Review of systems is otherwise negative. Vitals/I&O's: Vital Signs Temp Pulse Resp BP Pulse Ox 98.8 F 61 23 H 126/71 H 94 11/18/20 07:00 11/18/20 07:10 11/18/20 07:00 11/18/20 07:00 11/18/20 07:00 Oxygen Flow Rate (L/min) 60 Oxygen Delivery Method Bi-pap Weight: 272 lb 7.861 oz Body Mass Index (BMI) 37.8 Intake and Output for Last 24 Hours 11/16/20 11/17/20 11/18/20 23:59 23:59 23:59 Intake Total 870 / 990 2739 / 2739 638.5 / 638.5 Output Total 2600 / 2950 2980 / 2980 800 / 800 Balance -1730 / -1960 -241 / -241 -161.5 / -161.5 General: Alert, Oriented x3, Cooperative, No apparent distress HEENT: Atraumatic, PERRLA, EOMI, Normocephalic Oral: Dry Mucosa Neck: Supple, No JVD, Negative Carotid Bruits Lungs: Tachypneic, - - Bilateral crackles and mild wheezing. On 50 L of oxygen via airVo Cardiovascular: Regular rate, Regular Rhythm, Normal S1, Normal S2, No murmurs Abdomen: Bowel Sounds Present, Soft, Non Tender, Non-Distended, No Hepato- splenomegaly Extremities: No clubbing, No cyanosis, No edema, Capillary Refill Less than 3 Seconds Skin: No rashes, No breakdown Musculoskeletal: No Tenderness to Palpation of Joints or Extremities Lymphatic: No Cervical, Supraclavicular, or Inguinal Adenopathy Neurological: Cranial nerves II-XII grossly intact, Neuro grossly intact, Motor Exam 5/5 strength throughout Psych/Mental Status: Normal Affect, Appropriate, Alert and oriented to time, place, person, mood and affect Microbiology Past 72 Hours 11/15/20 04:25 Blood Culture (Wb) - Left Wrist Blood Culture - Preliminary No growth in 48 hours. 11/15/20 01:45 Blood Culture (Wb) - Anticubital Right Blood Culture - Preliminary No growth in 48 hours. 11/15/20 10:40 Urine Catheter - Catheter Legionella Antigen - Final 11/15/20 10:40 Urine Catheter - Catheter Streptococcus pneumoniae Antigen (M - Final 11/15/20 05:27 Mucosa - Nose Influenza Types A,B Direct FA (ASHLI) - Final Laboratory Results 11/17/20 04:40: Diff Path Review Reviewed 11/18/20 04:30: WBC 18.2 H, RBC 5.28, Hgb 15.0, Hct 45.7, MCV 86.6, MCH 28.4, MCHC 32.8, RDW Std Deviation 42.2, RDW Coeff of Yomi 13.6, Plt Count 370, MPV 10.0, Neut % (Auto) Not Reportable, Absolute Neuts (auto) 15.7 H, Absolute Lymphs (auto) 2.20, Total Counted 100, Neutrophils % (Manual) 83 H, Band Neutrophils % 3, Lymphocytes % (Manual) 12 L, Monocytes % (Manual) 1, Metamyelocytes % 1, Diff Path Review May foll, Platelet Estimate ADEQUATE, RBC Morphology NORM C+C 11/18/20 04:30: Sodium 132 L, Potassium 3.7, Chloride 95 L, Carbon Dioxide 34.0 H, Anion Gap 3 L, BUN 34 H, Creatinine 0.80, Estim Creat Clear Calc 110.47, Est GFR (MDRD) Af Amer 127, Est GFR (MDRD) Non-Af 105, BUN/Creatinine Ratio 42.4 H, Glucose 111 H, Calcium 8.0 L Current Medications Albuterol Sulfate (Albuterol 2.5 Mg/3 Ml Vial.Neb.) 2.5 mg INHALATION Q2H PRN PRN PRN Reason: SOB/Wheezing Dexamethasone Sodium Phosphate (Dexamethasone 10 Mg/Ml Vial) 6 mg IV DAILY VIKTORIYA Stop: 11/24/20 10:01 Last Admin: 11/17/20 10:30 Dose: 6 mg Documented by: Enoxaparin Sodium (Enoxaparin 120 Mg/0.8 Ml Syringe) 120 mg SC BID VIKTORIYA Last Admin: 11/17/20 21:49 Dose: 120 mg Documented by: Sodium Chloride () 250 mls @ 15 mls/hr IV .[id number] PRN PRN Reason: Saline Flush Last Infusion: 11/18/20 02:13 Dose: 0 mls/hr Documented by: Remdesivir 100 mg/ Sodium (Chloride) 250 mls @ 125 mls/hr IV DAILY [facility]; Protocol Stop: 11/19/20 11:59 Last Infusion: 11/17/20 12:55 Dose: Infused Documented by: Lisinopril (Lisinopril 20 Mg Tablet) 20 mg PO DAILY [facility] Last Admin: 11/17/20 10:32 Dose: 20 mg Documented by: Melatonin (Melatonin 3 Mg Tablet) 3 mg PO QHS PRN PRN PRN Reason: INSOMNIA Last Admin: 11/16/20 20:35 Dose: 3 mg Documented by: Metoprolol Tartrate (Metoprolol Tartrate 25 Mg Tablet) 25 mg PO BID [facility] Last Admin: 11/17/20 21:49 Dose: 25 mg Documented by: Ondansetron HCl (Ondansetron 4 Mg/2 Ml Vial) 4 mg IV Q8H PRN PRN PRN Reason: NAUSEA/VOMITING Sodium Chloride (0.9% Saline Lock 10 Ml Syringe) 10 - 40 ml IV UD PRN PRN Reason: SALINE FLUSH Last Admin: 11/17/20 18:10 Dose: 10 ml Documented by: STROKE Vital Signs/Narrative: Vital Signs Temp Pulse Resp BP Pulse Ox 11/18/20 07:10 61 11/18/20 07:00 98.8 F 59 L 23 H 126/71 H 94 11/18/20 06:00 98.2 F 66 25 H 120/77 94 11/18/20 05:00 98.7 F 56 L 26 H 147/91 H 94 11/18/20 04:25 63 34 H 94 11/18/20 04:00 98.8 F 64 22 H 136/86 H 91 Medical Necessity - Tobacco Use Smoking Status: Never smoker Assessment/Plan All Active Problems (Last Updated 11/15/20 @ 05:[address] Angel Patel MD) Respiratory failure (Acute) Pulmonary edema (Acute) Acute hypoxemic respiratory failure (Acute) Hypertensive emergency (Acute) #Acute hypoxic respiratory failure due to COVID 19 infection * on 50L of oxygen via AirVo * on breathing treatments with bronchodilators * on IV decadron and remdesivir * titrate oxygen to maintain sats>90% * critical care on board * on IV ceftriazone and azithromycin * blood cultures show no growth after 48 hours, and urine for strep and legionella were negative; antibiotics therefore discontinued * #COVID 19 infection * as above. wbc still 18,000 * #Nonstemi * troponin peaked at 0.820 * cardiology on board; 2D echo showed EF of 65%, with no regional wall motion abnormalities of LV, and normal LV size and function. * likely a type II myocardial infarct due to severe hypoxemia * conservative management for now * #ALkalosis, likely metabolic * bicarb is up to 34 today. Diuretics discontinued. Will trend * #Hyponatremia: sodium is 132. May be due to diuretics patient has been getting. diuretics discontinued. * #Elevated liver enzymes * stable. . Will trend #Morbid obesity: BMI is 37. This complicates acute care, expected recovery and prognosis DVT prophylaxis: lovenox therapeutic dose Inpatient E&M: 37306 [facility] L3
[2020-11-18] MEDS: dexAMETHasone 10 MG/ML Vial 6 MG IV (08:21)
[2020-11-18] MEDS: Metoprolol Tartrate 25 MG Tablet PO ×2 (08:22→23:17)
[2020-11-18] MEDS: Enoxaparin 120 MG/0.8 ML Syringe SC ×2 (08:22→23:17)
[2020-11-18] MEDS: Lisinopril 20 MG Tablet PO (08:22)
[2020-11-18] MEDS: 0.9% Saline Lock 10 ML Syringe IV ×2 (08:23→10:09)
[2020-11-18 12:28] LABS: Pathologist Review Reviewed
[2020-11-19] VITALS (19 sets, daily range): BP systolic 112–163; BP diastolic 64–82; PULSE 64–94; RESP 12–36; TEMP 35.6–36.5; O2SAT 93–96
[2020-11-19 05:11] LABS: Hematocrit 45.5 % (40-54); Hemoglobin 14.7 g/dL (13.0-16.5); Mean Corp Hgb Conc 32.3 g/dL (32-36); Mean Corpuscular Hgb 28.3 pg (27.0-32.0); Mean Corpuscular Volume 87.7 fL (80-94); Mean Platelet Vol. 9.8 fl (6.2-12.0); POSITIVE COUNT YES; POSITIVE MORPHOLOGY YES; Platelet Count 356 K/mm3 (150-450); RBC Distribution Width CV 13.5 % (11.6-14.6); RBC Distribution Width SD 43.2 fl (35.1-43.9); Red Blood Count 5.19 M/mm3 (4.6-6.2); White Blood Count 22.4 K/mm3 (4.4-11.0)
[2020-11-19 05:12] LABS: Differential Indicated MANUAL DIFF
[2020-11-19 05:25] LABS: Anion Gap 4 (5-15); BUN 25 mg/dL (7-18); BUN/Creat Ratio 28.7 RATIO (10-20); Calcium,Total 8.1 mg/dL (8.5-10.1); Chloride 97 mmol/L (98-107); Creatinine, Serum 0.87 mg/dL (0.70-1.30); EST Glomerular Filtration Rate 95 mL/min (>60); Est Glom Filt Rate - Afr Amer 116 mL/min (>60); Estimated Creatinine Clearance 101.58 ml/min; Glucose 99 mg/dL (74-106); Potassium 3.8 mmol/L (3.5-5.1); Sodium Level 134 mmol/L (136-145)
[2020-11-19 05:34] LABS: Metamyelocyte 1 % (0-1); Neutrophil-Band 3 % (0-5); Neutrophil-Segmented 82 % (47-70); Total Cells Counted 100 (MANUAL DIFF)
[2020-11-19 05:35] LABS: Absolute Lymphocyte Count 2.02 X10^3/uL (0.83-4.51); Absolute Neutrophil Count 19.5 X10^3/uL (2.0-7.7); Monocyte 3 % (0-10); Platelet Estimate ADEQUATE (ADEQ); Red Cell Morphology NORM C+C NORMAL (NORM C&C)
--- NOTE | 2020-11-19 05:42 | PCM.PN.INT ---
Subjective: The patient was seen and examined at the bedside this morning. Events from the last 24 hours have been reviewed. The patient is currently afebrile, hemodynamically stable and maintaining appropriate oxygen saturations on Airvo heated high flow oxygen with an FiO2 of 64%. The patient once again tolerated BiPAP overnight. Renal function is stable. The patient remains on remdesivir and Decadron. He is currently documented to be overall net -5+ liters for the hospital admission. Objective: The patient's most recent lab work, culture data and imaging studies have all been personally reviewed. Coronavirus PCR was positive on November 15. Strep and urine Legionella antigens were negative. Rapid influenza screen was negative. Blood cultures have shown no growth to date. General: Alert, Cooperative, No apparent distress HEENT: Atraumatic, Normocephalic Oral: Moist Mucosa, No Gingival or Mucosal Lesions/ Ulcerations Neck: Supple, No Nodes, Trachea Midline Lungs: Diminished, Tachypneic Cardiovascular: Regular rate, Regular Rhythm Abdomen: Bowel Sounds Present, Soft, Non Tender, Obese Extremities: No clubbing, No cyanosis, No edema Skin: No breakdown Musculoskeletal: No Tenderness to Palpation of Joints or Extremities Lymphatic: No Cervical, Supraclavicular, or Inguinal Adenopathy Neurological: Cranial nerves II-XII grossly intact, Neuro grossly intact Psych/Mental Status: Normal Affect, Appropriate Vital Signs Temp Pulse Resp BP Pulse Ox 97.7 F L 76 33 H 140/82 H 93 11/19/20 02:42 11/19/20 03:43 11/19/20 03:12 11/19/20 02:42 11/19/20 03:12 Oxygen Flow Rate (L/min) 60 Oxygen Delivery Method Bi-pap Weight: 273 lb 5.971 oz Body Mass Index (BMI) 37.8 Intake and Output for Last 24 Hours 11/17/20 11/18/20 11/19/20 23:59 23:59 23:59 Intake Total 2739 / 2739 1528.5 / 1528.5 Output Total 2980 / 2980 3450 / 3450 Balance -241 / -241 -1921.5 / -1921.5 Labs (Last 48 Hours) 11/17/20 11/18/20 11/18/20 04:40 04:30 04:30 WBC 18.2 H RBC 5.28 Hgb 15.0 Hct 45.7 MCV 86.6 MCH 28.4 MCHC 32.8 RDW Std Deviation 42.2 RDW Coeff of Yomi 13.6 Plt Count 370 MPV 10.0 Neut % (Auto) Not Reportable Absolute Neuts (auto) 15.7 H Absolute Lymphs (auto) 2.20 Total Counted 100 Neutrophils % (Manual) 83 H Band Neutrophils % 3 Lymphocytes % (Manual) 12 L Monocytes % (Manual) 1 Metamyelocytes % 1 Diff Path Review Reviewed Reviewed Platelet Estimate ADEQUATE RBC Morphology NORM C+C Sodium 132 L Potassium 3.7 Chloride 95 L Carbon Dioxide 34.0 H Anion Gap 3 L BUN 34 H Creatinine 0.80 Estim Creat Clear Calc 110.47 Est GFR (MDRD) Af Amer 127 Est GFR (MDRD) Non-Af 105 BUN/Creatinine Ratio 42.4 H Glucose 111 H Calcium 8.0 L 11/19/20 11/19/20 05:00 05:00 WBC 22.4 H RBC 5.19 Hgb 14.7 Hct 45.5 MCV 87.7 MCH 28.3 MCHC 32.3 RDW Std Deviation 43.2 RDW Coeff of Yomi 13.5 Plt Count 356 MPV 9.8 Neut % (Auto) Not Reportable Absolute Neuts (auto) 19.5 H Absolute Lymphs (auto) 2.02 Total Counted 100 Neutrophils % (Manual) 82 H Band Neutrophils % 3 Lymphocytes % (Manual) Monocytes % (Manual) 3 Metamyelocytes % 1 Diff Path Review May foll Platelet Estimate ADEQUATE RBC Morphology NORM C+C Sodium 134 L Potassium 3.8 Chloride 97 L Carbon Dioxide 33.0 H Anion Gap 4 L BUN 25 H Creatinine 0.87 Estim Creat Clear Calc 101.58 Est GFR (MDRD) Af Amer 116 Est GFR (MDRD) Non-Af 95 BUN/Creatinine Ratio 28.7 H Glucose 99 Calcium 8.1 L Microbiology 11/15/20 04:25 Blood Culture (Wb) - Left Wrist Blood Culture - Preliminary No growth in 48 hours. 11/15/20 01:45 Blood Culture (Wb) - Anticubital Right Blood Culture - Preliminary No growth in 48 hours. Clinical Impression(s) from Imaging Studies Chest X-Ray 11/15/20 01:58 IMPRESSION: Confluent groundglass opacities are seen more prominent in the lung bases , may represent bilateral bacterial pneumonia , ARDS or viral pneumonia (COVID-19 ?). Electronically Signed: Russ Andujar MD at 5:06 EDT Tel , Service support , Chest CTA 11/15/20 02:32 IMPRESSION: No overt demonstrated pulmonary embolism, aneurysm, leak or arterial dissection. Cardiac motion is degrading the detail assessment, subtle particularly peripheral pulmonary emboli could be obscured. Cardiomegaly and coronary artery disease. Ground glass opacification likely pulmonary edema. This could represent an inflammatory/infectious process rather than vascular congestion in this patient. Other nonacute findings as outlined above. Electronically Signed: Bebe Rodriguez MD at 4:11 EDT , Service support , Echocardiogram 11/16/20 13:02 Interpretation Summary Normal LV size. Left ventricular systolic function is normal. The estimated ejection fraction is 65 %. Ordering Physician: Cole Bledsoe Performed By: Kalie Wise, ILANCS, RVT Medical Necessity - Tobacco Use Smoking Status: Never smoker Assessment/Plan All Active Problems (Last Updated 11/15/20 @ 05:[address] Angel Patel MD) Respiratory failure (Acute) Pulmonary edema (Acute) Acute hypoxemic respiratory failure (Acute) Hypertensive emergency (Acute) RECOMMENDATIONS: 1. Continue remdesivir as ordered. Continue to monitor liver and renal function. 2. Continue Decadron to complete 10-day treatment course. 3. Antihypertensive regimen as ordered. 4. Continue patient on heated high flow oxygen and wean FiO2 to maintain saturations at or above 90%. 5. Continue nocturnal BiPAP therapy. IMPRESSIONS: 1. Acute hypoxemic respiratory failure secondary to COVID-19 pneumonia The patient's respiratory failure is likely multifactorial with COVID-19 pneumonia largely contributing, along with uncontrolled hypertension and possible CHF. The patient will be continued on appropriate medical therapy for his Covid infection, including remdesivir and Decadron to complete treatment courses. Given negative culture data, antibiotics were discontinued. Echocardiogram was largely unrevealing. Continue heated high flow with a goal to wean FiO2 to maintain saturations at or above 90%. 2. Acute kidney injury Resolved. Concern for prerenal etiology. Creatinine has improved at this time. Continue to monitor urine output. No current indication for renal replacement therapy. 3. Hypertension/obesity Complicates care, management, recovery and prognosis. Continue current antihypertensive regimen. This note was generated with [employer] dictation software. It may contain incorrect words, spelling, and punctuation that were not noted in checking the note before signing. Inpatient E&M: 52626 Subs Hosp L2
--- NOTE | 2020-11-19 07:41 | PCM.PN.HOSP ---
Patient Problems: Active and Suspected Problems (Last Updated 11/15/20 @ 05:[address] Angel Patel MD) Respiratory failure (Acute) Pulmonary edema (Acute) Acute hypoxemic respiratory failure (Acute) Hypertensive emergency (Acute) Subjective: Patient seen and examined. He had an uneventful night. He remains on AIrVo high flow oxygen at 60L. Review of systems is otherwise negative. Vitals/I&O's: Vital Signs Temp Pulse Resp BP Pulse Ox 97.7 F L 67 36 H 140/82 H 94 11/19/20 02:42 11/19/20 05:17 11/19/20 05:17 11/19/20 02:42 11/19/20 05:17 Oxygen Flow Rate (L/min) 60 Oxygen Delivery Method Bi-pap Weight: 273 lb 5.971 oz Body Mass Index (BMI) 37.8 Intake and Output for Last 24 Hours 11/17/20 11/18/20 11/19/20 23:59 23:59 23:59 Intake Total 2739 / 2739 1528.5 / 1528.5 Output Total 2980 / 2980 3450 / 3450 Balance -241 / -241 -1921.5 / -1921.5 General: Alert, Oriented x3, Cooperative, No apparent distress HEENT: Atraumatic, PERRLA, EOMI, Normocephalic Oral: Dry Mucosa Neck: Supple, No JVD, Negative Carotid Bruits Lungs: Tachypneic, - - Bilateral crackles and mild wheezing. On 60 L of oxygen via airVo Cardiovascular: Regular rate, Regular Rhythm, Normal S1, Normal S2, No murmurs Abdomen: Bowel Sounds Present, Soft, Non Tender, Non-Distended, No Hepato-splenomegaly Extremities: No clubbing, No cyanosis, No edema, Capillary Refill Less than 3 Seconds Skin: No rashes, No breakdown Musculoskeletal: No Tenderness to Palpation of Joints or Extremities Lymphatic: No Cervical, Supraclavicular, or Inguinal Adenopathy Neurological: Cranial nerves II-XII grossly intact, Neuro grossly intact, Motor Exam 5/5 strength throughout Psych/Mental Status: Normal Affect, Appropriate, Alert and oriented to time, place, person, mood and affect Microbiology Past 72 Hours 11/15/20 04:25 Blood Culture (Wb) - Left Wrist Blood Culture - Preliminary No growth in 48 hours. 11/15/20 01:45 Blood Culture (Wb) - Anticubital Right Blood Culture - Preliminary No growth in 48 hours. Laboratory Results 11/18/20 04:30: Diff Path Review Reviewed 11/19/20 05:00: WBC 22.4 H, RBC 5.19, Hgb 14.7, Hct 45.5, MCV 87.7, MCH 28.3, MCHC 32.3, RDW Std Deviation 43.2, RDW Coeff of Yomi 13.5, Plt Count 356, MPV 9.8, Neut % (Auto) Not Reportable, Absolute Neuts (auto) 19.5 H, Absolute Lymphs (auto) 2.02, Total Counted 100, Neutrophils % (Manual) 82 H, Band Neutrophils % 3, Monocytes % (Manual) 3, Metamyelocytes % 1, Diff Path Review May , Platelet Estimate ADEQUATE, RBC Morphology NORM C+C 11/19/20 05:00: Sodium 134 L, Potassium 3.8, Chloride 97 L, Carbon Dioxide 33.0 H, Anion Gap 4 L, BUN 25 H, Creatinine 0.87, Estim Creat Clear Calc 101.58, Est GFR (MDRD) Af Amer 116, Est GFR (MDRD) Non-Af 95, BUN/Creatinine Ratio 28.7 H, Glucose 99, Calcium 8.1 L Current Medications Albuterol Sulfate (Albuterol 2.5 Mg/3 Ml Vial.Neb.) 2.5 mg INHALATION Q2H PRN PRN PRN Reason: SOB/Wheezing Dexamethasone Sodium Phosphate (Dexamethasone 10 Mg/Ml Vial) 6 mg IV DAILY VIKTORIYA Stop: 11/24/20 10:01 Last Admin: 11/18/20 08:21 Dose: 6 mg Documented by: Enoxaparin Sodium (Enoxaparin 120 Mg/0.8 Ml Syringe) 120 mg SC BID VIKTORIYA Last Admin: 11/18/20 23:17 Dose: 120 mg Documented by: Sodium Chloride () 250 mls @ 15 mls/hr IV .[id number] PRN PRN Reason: Saline Flush Last Infusion: 11/18/20 02:13 Dose: 0 mls/hr Documented by: Remdesivir 100 mg/ Sodium (Chloride) 250 mls @ 125 mls/hr IV DAILY COUNTS INCLUDE 234 BEDS AT THE [facility]; Protocol Stop: 11/19/20 11:59 Last Infusion: 11/18/20 12:14 Dose: Infused Documented by: Lisinopril (Lisinopril 20 Mg Tablet) 20 mg PO DAILY COUNTS INCLUDE 234 BEDS AT THE [facility] Last Admin: 11/18/20 08:22 Dose: 20 mg Documented by: Melatonin (Melatonin 3 Mg Tablet) 3 mg PO QHS PRN PRN PRN Reason: INSOMNIA Last Admin: 11/16/20 20:35 Dose: 3 mg Documented by: Metoprolol Tartrate (Metoprolol Tartrate 25 Mg Tablet) 25 mg PO BID COUNTS INCLUDE 234 BEDS AT THE [facility] Last Admin: 11/18/20 23:17 Dose: 25 mg Documented by: Ondansetron HCl (Ondansetron 4 Mg/2 Ml Vial) 4 mg IV Q8H PRN PRN PRN Reason: NAUSEA/VOMITING Sodium Chloride (0.9% Saline Lock 10 Ml Syringe) 10 - 40 ml IV UD PRN PRN Reason: SALINE FLUSH Last Admin: 11/18/20 10:09 Dose: 10 ml Documented by: STROKE Vital Signs/Narrative: Vital Signs Pulse Resp Pulse Ox 11/19/20 05:17 67 36 H 94 11/19/20 03:43 76 Medical Necessity - Tobacco Use Smoking Status: Never smoker Assessment/Plan All Active Problems (Last Updated 11/15/20 @ 05:[address] Angel Patle MD) Respiratory failure (Acute) Pulmonary edema (Acute) Acute hypoxemic respiratory failure (Acute) Hypertensive emergency (Acute) #Acute hypoxic respiratory failure due to COVID 19 infection on 60L of oxygen via AirVo on breathing treatments with bronchodilators on IV decadron and remdesivir titrate oxygen to maintain sats>90% critical care on board blood cultures show no growth after 48 hours, and urine for strep and legionella were negative; antibiotics therefore discontinued #COVID 19 infection as above. #Nonstemi troponin peaked at 0.820 cardiology on board; 2D echo showed EF of 65%, with no regional wall motion abnormalities of LV, and normal LV size and function. likely a type II myocardial infarct due to severe hypoxemia conservative management for now #ALkalosis, likely metabolic bicarb is slightly down to 33 today. Diuretics discontinued. Will trend #Hyponatremia: sodium is 132. May be due to diuretics patient has been getting. diuretics discontinued. #Elevated liver enzymes stable. #Morbid obesity: BMI is 37. This complicates acute care, expected recovery and prognosis DVT prophylaxis: lovenox therapeutic dose Inpatient E&M: 95222 Subs Hosp L2
[2020-11-19] MEDS: Enoxaparin 120 MG/0.8 ML Syringe SC ×2 (10:56→22:23)
[2020-11-19] MEDS: Metoprolol Tartrate 25 MG Tablet PO ×2 (10:56→22:23)
[2020-11-19] MEDS: dexAMETHasone 10 MG/ML Vial 6 MG IV (10:56)
[2020-11-19] MEDS: Lisinopril 20 MG Tablet PO (10:56)
[2020-11-19 14:21] LABS: Pathologist Review Reviewed
[2020-11-20] VITALS (26 sets, daily range): BP systolic 99–163; BP diastolic 66–88; PULSE 54–81; RESP 12–36; TEMP 36.1–36.4; O2SAT 92–100
[2020-11-20 05:18] LABS: Hematocrit 44.7 % (40-54); Hemoglobin 14.6 g/dL (13.0-16.5); Mean Corp Hgb Conc 32.7 g/dL (32-36); Mean Corpuscular Hgb 28.5 pg (27.0-32.0); Mean Corpuscular Volume 87.3 fL (80-94); Mean Platelet Vol. 10.1 fl (6.2-12.0); POSITIVE COUNT YES; POSITIVE MORPHOLOGY YES; Platelet Count 305 K/mm3 (150-450); RBC Distribution Width CV 13.6 % (11.6-14.6); RBC Distribution Width SD 43.4 fl (35.1-43.9); Red Blood Count 5.12 M/mm3 (4.6-6.2); White Blood Count 21.6 K/mm3 (4.4-11.0)
[2020-11-20 05:21] LABS: Differential Indicated MANUAL DIFF
[2020-11-20 05:34] LABS: Anion Gap 3 (5-15); BUN 24 mg/dL (7-18); BUN/Creat Ratio 26.8 RATIO (10-20); Calcium,Total 8.2 mg/dL (8.5-10.1); Chloride 97 mmol/L (98-107); EST Glomerular Filtration Rate 93 mL/min (>60); Est Glom Filt Rate - Afr Amer 112 mL/min (>60); Glucose 111 mg/dL (74-106); Potassium 4.3 mmol/L (3.5-5.1); Sodium Level 133 mmol/L (136-145)
[2020-11-20 05:39] LABS: Absolute Lymphocyte Count 1.94 X10^3/uL (0.83-4.51); Absolute Neutrophil Count 18.3 X10^3/uL (2.0-7.7); Myelocyte 3 % (0-0); Neutrophil-Segmented 85 % (47-70)
[2020-11-20 05:40] LABS: Lymphocyte 9 % (19-41); Monocyte 3 % (0-10); Platelet Estimate ADEQUATE (ADEQ)
[2020-11-20 05:41] LABS: Red Cell Morphology NORM C+C NORMAL (NORM C&C)
--- NOTE | 2020-11-20 05:48 | PCM.PN.PUL ---
Patient Problems: Active and Suspected Problems (Last Updated 11/15/20 @ 05:[address] Angel Patel MD) Respiratory failure (Acute) Pulmonary edema (Acute) Acute hypoxemic respiratory failure (Acute) Hypertensive emergency (Acute) Subjective: The patient was seen and examined at the bedside this morning. Events from the last 24 hours have been reviewed. The patient is currently afebrile and hemodynamically stable. He remains compliant with the use of BiPAP on a nightly basis. The patient was again maintained on heated high flow oxygen throughout the day yesterday and was able to be weaned down to an FiO2 of 53%. He does continue to have a cough and has noted some blood-streaked sputum. He has completed his treatment course of remdesivir and remains on Decadron and therapeutic Lovenox. He is currently documented to be overall net -6.4 L for the hospital admission. Objective: The patient's most recent lab work, culture data and imaging studies have all been personally reviewed. Coronavirus PCR was positive on November 15. Strep and urine Legionella antigens were negative. Rapid influenza screen was negative. Blood cultures have shown no growth to date. - Physical Exam Vitals/I&O's: Vital Signs Temp Pulse Resp BP Pulse Ox 96.9 F L 54 L 24 H 119/66 92 11/20/20 05:00 11/20/20 05:00 11/20/20 05:00 11/20/20 05:00 11/20/20 05:00 Oxygen Flow Rate (L/min) 60 Oxygen Delivery Method Bi-pap Weight: 273 lb 5.971 oz Body Mass Index (BMI) 37.8 Intake and Output for Last 24 Hours 11/18/20 11/19/20 11/20/20 23:59 23:59 23:59 Intake Total 1528.5 / 1528.5 302.75 / 802.75 500 / 500 Output Total 3450 / 3450 1575 / 1950 375 / 375 Balance -1921.5 / -1921.5 -1272.25 / -1147.25 125 / 125 General: Alert, Cooperative, No apparent distress HEENT: Atraumatic, Normocephalic Oral: No Gingival or Mucosal Lesions/ Ulcerations Neck: Supple, No Nodes, Trachea Midline Lungs: Diminished, Tachypneic Cardiovascular: Regular rate, Regular Rhythm Abdomen: Bowel Sounds Present, Soft, Non Tender, Obese Extremities: No clubbing, No cyanosis, No edema Skin: No breakdown Musculoskeletal: No Tenderness to Palpation of Joints or Extremities Lymphatic: No Cervical, Supraclavicular, or Inguinal Adenopathy Neurological: Cranial nerves II-XII grossly intact, Neuro grossly intact Psych/Mental Status: Normal Affect, Appropriate Labs (Last 48 Hours) 11/18/20 11/19/20 11/19/20 04:30 05:00 05:00 WBC 22.4 H RBC 5.19 Hgb 14.7 Hct 45.5 MCV 87.7 MCH 28.3 MCHC 32.3 RDW Std Deviation 43.2 RDW Coeff of Yomi 13.5 Plt Count 356 MPV 9.8 Neut % (Auto) Not Reportable Absolute Neuts (auto) 19.5 H Absolute Lymphs (auto) 2.02 Total Counted 100 Neutrophils % (Manual) 82 H Band Neutrophils % 3 Lymphocytes % (Manual) Monocytes % (Manual) 3 Metamyelocytes % 1 Myelocytes % Diff Path Review Reviewed Reviewed Platelet Estimate ADEQUATE RBC Morphology NORM C+C Sodium 134 L Potassium 3.8 Chloride 97 L Carbon Dioxide 33.0 H Anion Gap 4 L BUN 25 H Creatinine 0.87 Estim Creat Clear Calc 101.58 Est GFR (MDRD) Af Amer 116 Est GFR (MDRD) Non-Af 95 BUN/Creatinine Ratio 28.7 H Glucose 99 Calcium 8.1 L 11/20/20 11/20/20 05:08 05:08 WBC 21.6 H RBC 5.12 Hgb 14.6 Hct 44.7 MCV 87.3 MCH 28.5 MCHC 32.7 RDW Std Deviation 43.4 RDW Coeff of Yomi 13.6 Plt Count 305 MPV 10.1 Neut % (Auto) Not Reportable Absolute Neuts (auto) 18.3 H Absolute Lymphs (auto) 1.94 Total Counted Neutrophils % (Manual) 85 H Band Neutrophils % Lymphocytes % (Manual) 9 L Monocytes % (Manual) 3 Metamyelocytes % Myelocytes % 3 H Diff Path Review May foll Platelet Estimate ADEQUATE RBC Morphology NORM C+C Sodium 133 L Potassium 4.3 Chloride 97 L Carbon Dioxide 33.0 H Anion Gap 3 L BUN 24 H Creatinine 0.90 Estim Creat Clear Calc 98.20 Est GFR (MDRD) Af Amer 112 Est GFR (MDRD) Non-Af 93 BUN/Creatinine Ratio 26.8 H Glucose 111 H Calcium 8.2 L Clinical Impression(s) from Imaging Studies Chest X-Ray 11/15/20 01:58 IMPRESSION: Confluent groundglass opacities are seen more prominent in the lung bases , may represent bilateral bacterial pneumonia , ARDS or viral pneumonia (COVID-19 ?). Electronically Signed: Russ Andujar MD at 5:06 EDT Tel , Service support , Chest CTA 11/15/20 02:32 IMPRESSION: No overt demonstrated pulmonary embolism, aneurysm, leak or arterial dissection. Cardiac motion is degrading the detail assessment, subtle particularly peripheral pulmonary emboli could be obscured. Cardiomegaly and coronary artery disease. Ground glass opacification likely pulmonary edema. This could represent an inflammatory/infectious process rather than vascular congestion in this patient. Other nonacute findings as outlined above. Electronically Signed: Bebe Rodriguez MD at 4:11 EDT , Service support , Echocardiogram 11/16/20 13:02 Interpretation Summary Normal LV size. Left ventricular systolic function is normal. The estimated ejection fraction is 65 %. Ordering Physician: Cole Bledsoe Performed By: Kalie Wise, MONTRELL, RVT Current Medications Albuterol Sulfate (Albuterol 2.5 Mg/3 Ml Vial.Neb.) 2.5 mg INHALATION Q2H PRN PRN PRN Reason: SOB/Wheezing Dexamethasone Sodium Phosphate (Dexamethasone 10 Mg/Ml Vial) 6 mg IV DAILY [facility] Stop: 11/24/20 10:01 Last Admin: 11/19/20 10:56 Dose: 6 mg Documented by: Enoxaparin Sodium (Enoxaparin 120 Mg/0.8 Ml Syringe) 120 mg SC BID [facility] Last Admin: 11/19/20 22:23 Dose: 120 mg Documented by: Sodium Chloride () 250 mls @ 15 mls/hr IV .[id number] PRN PRN Reason: Saline Flush Last Infusion: 11/19/20 18:12 Dose: 0 mls/hr Documented by: Lisinopril (Lisinopril 20 Mg Tablet) 20 mg PO DAILY [facility] [place] Last Admin: 11/19/20 10:56 Dose: 20 mg Documented by: Melatonin (Melatonin 3 Mg Tablet) 3 mg PO QHS PRN PRN PRN Reason: INSOMNIA Last Admin: 11/16/20 20:35 Dose: 3 mg Documented by: Metoprolol Tartrate (Metoprolol Tartrate 25 Mg Tablet) 25 mg PO BID [facility] [place] Last Admin: 11/19/20 22:23 Dose: 25 mg Documented by: Ondansetron HCl (Ondansetron 4 Mg/2 Ml Vial) 4 mg IV Q8H PRN PRN PRN Reason: NAUSEA/VOMITING Sodium Chloride (0.9% Saline Lock 10 Ml Syringe) 10 - 40 ml IV UD PRN PRN Reason: SALINE FLUSH Last Admin: 11/18/20 10:09 Dose: 10 ml Documented by: Medical Necessity - Tobacco Use Smoking Status: Never smoker Assessment/Plan All Active Problems (Last Updated 11/15/20 @ 05:[address] Angel Patel MD) Respiratory failure (Acute) Pulmonary edema (Acute) Acute hypoxemic respiratory failure (Acute) Hypertensive emergency (Acute) RECOMMENDATIONS: 1. Continue Decadron to complete 10-day treatment course. 2. Antihypertensive regimen as ordered. 3. Continue patient on heated high flow oxygen and wean FiO2 to maintain saturations at or above 90%. 4. Continue nocturnal BiPAP therapy. IMPRESSIONS: 1. Acute hypoxemic respiratory failure secondary to COVID-19 pneumonia The patient's respiratory failure is likely multifactorial with COVID-19 pneumonia largely contributing, along with uncontrolled hypertension and possible CHF. The patient will be continued on appropriate medical therapy for his Covid infection. The patient has completed a treatment course of remdesivir and remains on Decadron. Echocardiogram was largely unrevealing. The patient is improving from a respiratory perspective, albeit slowly. Continue heated high flow with a goal to wean FiO2 to maintain saturations at or above 90%. 2. Acute kidney injury Resolved. Concern for prerenal etiology. Creatinine has improved at this time. Continue to monitor urine output. No current indication for renal replacement therapy. 3. Hypertension/obesity Complicates care, management, recovery and prognosis. Continue current antihypertensive regimen. This note was generated with Vigo dictation software. It may contain incorrect words, spelling, and punctuation that were not noted in checking the note before signing. Inpatient E&M: 38543 Subs Hosp L2
--- NOTE | 2020-11-20 07:18 | PCM.PN.HOSP ---
Patient Problems: Active and Suspected Problems (Last Updated 11/15/20 @ 05:[address] Angel Patel MD) Respiratory failure (Acute) Pulmonary edema (Acute) Acute hypoxemic respiratory failure (Acute) Hypertensive emergency (Acute) Vitals/I&O's: Vital Signs Temp Pulse Resp BP Pulse Ox 97.1 F L 67 24 H 149/88 H 98 11/20/20 07:00 11/20/20 07:00 11/20/20 07:00 11/20/20 07:00 11/20/20 07:00 Oxygen Flow Rate (L/min) 60 Oxygen Delivery Method Airvo Weight: 271 lb 9.752 oz Body Mass Index (BMI) 37.8 Intake and Output for Last 24 Hours 11/18/20 11/19/20 11/20/20 23:59 23:59 23:59 Intake Total 1528.5 / 1528.5 302.75 / 802.75 500 / 500 Output Total 3450 / 3450 1575 / 1950 375 / 375 Balance -1921.5 / -1921.5 -1272.25 / -1147.25 125 / 125 Microbiology Past 72 Hours 11/15/20 04:25 Blood Culture (Wb) - Left Wrist Blood Culture - Final No growth in 5 days. 11/15/20 01:45 Blood Culture (Wb) - Anticubital Right Blood Culture - Final No growth in 5 days. Laboratory Results 11/19/20 05:00: Diff Path Review Reviewed 11/20/20 05:08: WBC 21.6 H, RBC 5.12, Hgb 14.6, Hct 44.7, MCV 87.3, MCH 28.5, MCHC 32.7, RDW Std Deviation 43.4, RDW Coeff of Yomi 13.6, Plt Count 305, MPV 10.1, Neut % (Auto) Not Reportable, Absolute Neuts (auto) 18.3 H, Absolute Lymphs (auto) 1.94, Neutrophils % (Manual) 85 H, Lymphocytes % (Manual) 9 L, Monocytes % (Manual) 3, Myelocytes % 3 H, Diff Path Review May , Platelet Estimate ADEQUATE, RBC Morphology NORM C+C 11/20/20 05:08: Sodium 133 L, Potassium 4.3, Chloride 97 L, Carbon Dioxide 33.0 H, Anion Gap 3 L, BUN 24 H, Creatinine 0.90, Estim Creat Clear Calc 98.20, Est GFR (MDRD) Af Amer 112, Est GFR (MDRD) Non-Af 93, BUN/Creatinine Ratio 26.8 H, Glucose 111 H, Calcium 8.2 L Current Medications Albuterol Sulfate (Albuterol 2.5 Mg/3 Ml Vial.Neb.) 2.5 mg INHALATION Q2H PRN PRN PRN Reason: SOB/Wheezing Dexamethasone Sodium Phosphate (Dexamethasone 10 Mg/Ml Vial) 6 mg IV DAILY [facility] Stop: 11/24/20 10:01 Last Admin: 11/19/20 10:56 Dose: 6 mg Documented by: Enoxaparin Sodium (Enoxaparin 120 Mg/0.8 Ml Syringe) 120 mg SC BID [facility] Last Admin: 11/19/20 22:23 Dose: 120 mg Documented by: Sodium Chloride () 250 mls @ 15 mls/hr IV .[id number] PRN PRN Reason: Saline Flush Last Infusion: 11/19/20 18:12 Dose: 0 mls/hr Documented by: Lisinopril (Lisinopril 20 Mg Tablet) 20 mg PO DAILY [facility] Last Admin: 11/19/20 10:56 Dose: 20 mg Documented by: Melatonin (Melatonin 3 Mg Tablet) 3 mg PO QHS PRN PRN PRN Reason: INSOMNIA Last Admin: 11/16/20 20:35 Dose: 3 mg Documented by: Metoprolol Tartrate (Metoprolol Tartrate 25 Mg Tablet) 25 mg PO BID [facility] Last Admin: 11/19/20 22:23 Dose: 25 mg Documented by: Ondansetron HCl (Ondansetron 4 Mg/2 Ml Vial) 4 mg IV Q8H PRN PRN PRN Reason: NAUSEA/VOMITING Sodium Chloride (0.9% Saline Lock 10 Ml Syringe) 10 - 40 ml IV UD PRN PRN Reason: SALINE FLUSH Last Admin: 11/18/20 10:09 Dose: 10 ml Documented by: STROKE Vital Signs/Narrative: Vital Signs Temp Pulse Resp BP Pulse Ox 11/20/20 07:00 97.1 F L 67 24 H 149/88 H 98 11/20/20 06:00 97.1 F L 61 24 H 99/70 92 11/20/20 05:00 96.9 F L 54 L 24 H 119/66 92 11/20/20 04:50 57 L 27 H 92 11/20/20 04:00 97.1 F L 60 25 H 125/71 H 93 Medical Necessity - Tobacco Use Smoking Status: Never smoker Assessment/Plan All Active Problems (Last Updated 11/15/20 @ 05:[address] Angel Patel MD) Respiratory failure (Acute) Pulmonary edema (Acute) Acute hypoxemic respiratory failure (Acute) Hypertensive emergency (Acute)
[2020-11-20] MEDS: Lisinopril 20 MG Tablet PO (08:21)
[2020-11-20] MEDS: Metoprolol Tartrate 25 MG Tablet PO ×2 (08:22→21:36)
[2020-11-20] MEDS: Enoxaparin 120 MG/0.8 ML Syringe SC (08:22)
[2020-11-20] MEDS: dexAMETHasone 10 MG/ML Vial 6 MG IV (08:22)
[2020-11-20] MEDS: 0.9% Saline Lock 10 ML Syringe IV (08:23)
[2020-11-20 13:11] LABS: Pathologist Review Reviewed
--- NOTE | 2020-11-20 13:34 | PN_ITS ---
Patient Problems: Active and Suspected Problems (Last Updated 11/15/20 @ 05:[address] Angel Patel MD) Respiratory failure (Acute) Pulmonary edema (Acute) Acute hypoxemic respiratory failure (Acute) Hypertensive emergency (Acute) Subjective: Patient seen and examined. He remains on high flow oxygen by AirVo. He was seated up in his chair and had no complaints. He has remained hemodynamically stable. Vitals/I&O's: Vital Signs Temp Pulse Resp BP Pulse Ox 97.0 F L 69 29 H 138/79 H 95 11/20/20 08:30 11/20/20 12:00 11/20/20 11:35 11/20/20 08:30 11/20/20 11:35 Oxygen Flow Rate (L/min) 60 Oxygen Delivery Method Airvo Weight: 271 lb 9.752 oz Body Mass Index (BMI) 37.8 Intake and Output for Last 24 Hours 11/18/20 11/19/20 11/20/20 23:59 23:59 23:59 Intake Total 1528.5 / 1528.5 302.75 / 802.75 740 / 740 Output Total 3450 / 3450 1575 / 1950 1325 / 1325 Balance -1921.5 / -1921.5 -1272.25 / -1147.25 -585 / -585 General: Alert, Oriented x3, Cooperative, No apparent distress HEENT: Atraumatic, PERRLA, EOMI, Normocephalic Oral: Dry Mucosa Neck: Supple, No JVD, Negative Carotid Bruits Lungs: Tachypneic, - - Bilateral crackles and mild wheezing. still On 60 L of oxygen via airVo Cardiovascular: Regular rate, Regular Rhythm, Normal S1, Normal S2, No murmurs Abdomen: Bowel Sounds Present, Soft, Non Tender, Non-Distended, No Hepato- splenomegaly Extremities: No clubbing, No cyanosis, No edema, Capillary Refill Less than 3 Seconds Skin: No rashes, No breakdown Musculoskeletal: No Tenderness to Palpation of Joints or Extremities Lymphatic: No Cervical, Supraclavicular, or Inguinal Adenopathy Neurological: Cranial nerves II-XII grossly intact, Neuro grossly intact, Motor Exam 5/5 strength throughout Psych/Mental Status: Normal Affect, Appropriate, Alert and oriented to time, place, person, mood and affect Microbiology Past 72 Hours 04/04/21 04:25 Blood Culture (Wb) - Left Wrist Blood Culture - Final No growth in 5 days. 11/15/20 01:45 Blood Culture (Wb) - Anticubital Right Blood Culture - Final No growth in 5 days. Laboratory Results 11/19/20 05:00: Diff Path Review Reviewed 11/20/20 05:08: WBC 21.6 H, RBC 5.12, Hgb 14.6, Hct 44.7, MCV 87.3, MCH 28.5, MCHC 32.7, RDW Std Deviation 43.4, RDW Coeff of Yomi 13.6, Plt Count 305, MPV 10.1, Neut % (Auto) Not Reportable, Absolute Neuts (auto) 18.3 H, Absolute Lymphs (auto) 1.94, Neutrophils % (Manual) 85 H, Lymphocytes % (Manual) 9 L, Monocytes % (Manual) 3, Myelocytes % 3 H, Diff Path Review Reviewed, Platelet Es timate ADEQUATE, RBC Morphology NORM C+C 11/20/20 05:08: Sodium 133 L, Potassium 4.3, Chloride 97 L, Carbon Dioxide 33.0 H, Anion Gap 3 L, BUN 24 H, Creatinine 0.90, Estim Creat Clear Calc 98.20, Est GFR (MDRD) Af Amer 112, Est GFR (MDRD) Non-Af 93, BUN/Creatinine Ratio 26.8 H, Glucose 111 H, Calcium 8.2 L Current Medications Albuterol Sulfate (Albuterol 2.5 Mg/3 Ml Vial.Neb.) 2.5 mg INHALATION Q2H PRN PRN PRN Reason: SOB/Wheezing Dexamethasone Sodium Phosphate (Dexamethasone 10 Mg/Ml Vial) 6 mg IV DAILY [facility] Stop: 11/24/20 10:01 Last Admin: 11/20/20 08:22 Dose: 6 mg Documented by: Enoxaparin Sodium (Enoxaparin 120 Mg/0.8 Ml Syringe) 120 mg SC BID [facility] Last Admin: 11/20/20 08:22 Dose: 120 mg Documented by: Sodium Chloride () 250 mls @ 15 mls/hr IV .[id number] PRN PRN Reason: Saline Flush Last Infusion: 11/19/20 18:12 Dose: 0 mls/hr Documented by: Lisinopril (Lisinopril 20 Mg Tablet) 20 mg PO DAILY [facility] Last Admin: 11/20/20 08:21 Dose: 20 mg Documented by: Melatonin (Melatonin 3 Mg Tablet) 3 mg PO QHS PRN PRN PRN Reason: INSOMNIA Last Admin: 11/16/20 20:35 Dose: 3 mg Documented by: Metoprolol Tartrate (Metoprolol Tartrate 25 Mg Tablet) 25 mg PO BID [facility] Last Admin: 11/20/20 08:22 Dose: 25 mg Documented by: Ondansetron HCl (Ondansetron 4 Mg/2 Ml Vial) 4 mg IV Q8H PRN PRN PRN Reason: NAUSEA/VOMITING Sodium Chloride (0.9% Saline Lock 10 Ml Syringe) 10 - 40 ml IV UD PRN PRN Reason: SALINE FLUSH Last Admin: 11/20/20 08:23 Dose: 10 ml Documented by: STROKE Vital Signs/Narrative: Vital Signs Pulse Resp Pulse Ox 11/20/20 12:00 69 11/20/20 11:35 70 29 H 95 Medical Necessity - Tobacco Use Smoking Status: Never smoker Assessment/Plan All Active Problems (Last Updated 11/15/20 @ 05:[address] Angel Patel MD) Respiratory failure (Acute) Pulmonary edema (Acute) Acute hypoxemic respiratory failure (Acute) Hypertensive emergency (Acute) #Acute hypoxic respiratory failure due to COVID 19 infection * on 60L of oxygen via AirVo * on breathing treatments with bronchodilators * on IV decadron ; has completed a course of remdesivir * titrate oxygen to maintain sats>90% * critical care on board * blood cultures show no growth after 48 hours, and urine for strep and legionella were negative; antibiotics therefore discontinued * #COVID 19 infection * as above. * #Nonstemi * troponin peaked at 0.820 * cardiology on board; 2D echo showed EF of 65%, with no regional wall motion abnormalities of LV, and normal LV size and function. * likely a type II myocardial infarct due to severe hypoxemia * conservative management for now * #ALkalosis, likely metabolic * bicarb remains 33 today. WIll monitor * #Hyponatremia: sodium is 133. Will monitor. * #Elevated liver enzymes * stable. #Morbid obesity: BMI is 37. This complicates acute care, expected recovery and prognosis DVT prophylaxis: lovenox therapeutic dose Inpatient E&M: [id number] [facility] Hosp L2
[2020-11-20] MEDS: Enoxaparin 40 MG/0.4 ML Syringe SC (21:35)
[2020-11-20] MEDS: Ondansetron 4 MG/2 ML Vial IV (21:36)
[2020-11-21] VITALS (19 sets, daily range): BP systolic 119–160; BP diastolic 71–89; PULSE 49–82; RESP 12–30; TEMP 36.2–36.8; O2SAT 93–98
[2020-11-21 04:15] LABS: Mean Corp Hgb Conc 32.6 g/dL (32-36); Mean Corpuscular Hgb 28.3 pg (27.0-32.0); Mean Corpuscular Volume 86.9 fL (80-94); Mean Platelet Vol. 10.1 fl (6.2-12.0); POSITIVE COUNT YES; POSITIVE MORPHOLOGY YES; Platelet Count 291 K/mm3 (150-450); RBC Distribution Width CV 13.7 % (11.6-14.6); RBC Distribution Width SD 43.3 fl (35.1-43.9); Red Blood Count 4.95 M/mm3 (4.6-6.2); White Blood Count 20.4 K/mm3 (4.4-11.0)
[2020-11-21 04:23] LABS: Differential Indicated MANUAL DIFF
[2020-11-21 04:32] LABS: Anion Gap 3 (5-15); BUN 20 mg/dL (7-18); Calcium,Total 7.5 mg/dL (8.5-10.1); Chloride 102 mmol/L (98-107); Creatinine, Serum 0.72 mg/dL (0.70-1.30); EST Glomerular Filtration Rate 120 mL/min (>60); Est Glom Filt Rate - Afr Amer 145 mL/min (>60); Estimated Creatinine Clearance 122.75 ml/min; Glucose 111 mg/dL (74-106); Potassium 4.2 mmol/L (3.5-5.1); Sodium Level 135 mmol/L (136-145)
[2020-11-21 04:45] LABS: Eosinophil 2 % (0-5); Lymphocyte 9 % (19-41); Neutrophil-Segmented 80 % (47-70); Promyelocyte 1 % (0-0)
[2020-11-21 04:47] LABS: Absolute Lymphocyte Count 1.83 X10^3/uL (0.83-4.51); Absolute Neutrophil Count 16.3 X10^3/uL (2.0-7.7)
[2020-11-21 04:48] LABS: Monocyte 5 % (0-10); Myelocyte 3 % (0-0); Platelet Estimate ADEQUATE (ADEQ); Red Cell Morphology NORM C+C NORMAL (NORM C&C)
--- NOTE | 2020-11-21 07:00 | PN_ITS ---
Patient Problems: Active and Suspected Problems (Last Updated 11/15/20 @ 05:[address] Angel Patel MD) Respiratory failure (Acute) Pulmonary edema (Acute) Acute hypoxemic respiratory failure (Acute) Hypertensive emergency (Acute) Subjective: The patient was seen and examined at the bedside this morning. Events from the last 24 hours have been reviewed. The patient is currently afebrile, hemodynamically stable and maintaining appropriate oxygen saturations on Airvo with an FiO2 requirement of 43%. The patient remains on Decadron. He continues to improve slowly from a respiratory perspective. Objective: The patient's most recent lab work, culture data and imaging studies have all been personally reviewed. Coronavirus PCR was positive on November 15. Strep and urine Legionella antigens were negative. Rapid influenza screen was negative. Blood cultures have shown no growth to date. - Physical Exam Vitals/I&O's: Vital Signs Temp Pulse Resp BP Pulse Ox 97.0 F L 52 L 26 H 163/82 H 96 11/20/20 17:16 11/21/20 04:20 11/21/20 04:20 11/20/20 21:36 11/21/20 04:20 Oxygen Flow Rate (L/min) 60 Oxygen Delivery Method Bi-pap Weight: 273 lb 9.498 oz Body Mass Index (BMI) 37.8 Intake and Output for Last 24 Hours 11/19/20 11/20/20 11/21/20 23:59 23:59 23:59 Intake Total 302.75 / 802.75 1140 / 1140 50 / 50 Output Total 1575 / 1950 2125 / 2525 500 / 500 Balance -1272.25 / -1147.25 -985 / -1385 -450 / -450 General: Alert, Oriented x3, Cooperative, No apparent distress HEENT: Atraumatic, Normocephalic Oral: Moist Mucosa, No Gingival or Mucosal Lesions/ Ulcerations Neck: Supple, No Nodes, Trachea Midline Lungs: No rhonchi, No wheeze, No rales, Diminished Cardiovascular: Regular rate, Regular Rhythm Abdomen: Bowel Sounds Present, Soft, Non Tender, Obese Extremities: No clubbing, No cyanosis, No edema Skin: No breakdown Musculoskeletal: No Tenderness to Palpation of Joints or Extremities Lymphatic: No Cervical, Supraclavicular, or Inguinal Adenopathy Neurological: Cranial nerves II-XII grossly intact, Neuro grossly intact Psych/Mental Status: Normal Affect Labs (Last 48 Hours) 11/19/20 11/20/20 11/20/20 05:00 05:08 05:08 WBC 21.6 H RBC 5.12 Hgb 14.6 Hct 44.7 MCV 87.3 MCH 28.5 MCHC 32.7 RDW Std Deviation 43.4 RDW Coeff of Yomi 13.6 Plt Count 305 MPV 10.1 Neut % (Auto) Not Reportable Absolute Neuts (auto) 18.3 H Absolute Lymphs (auto) 1.94 Neutrophils % (Manual) 85 H Lymphocytes % (Manual) 9 L Monocytes % (Manual) 3 Eosinophils % (Manual) Myelocytes % 3 H Promyelocytes % Diff Path Review Reviewed Reviewed Platelet Estimate ADEQUATE RBC Morphology NORM C+C Sodium 133 L Potassium 4.3 Chloride 97 L Carbon Dioxide 33.0 H Anion Gap 3 L BUN 24 H Creatinine 0.90 Estim Creat Clear Calc 98.20 Est GFR (MDRD) Af Amer 112 Est GFR (MDRD) Non-Af 93 BUN/Creatinine Ratio 26.8 H Glucose 111 H Calcium 8.2 L 11/21/20 11/21/20 03:50 03:50 WBC 20.4 H RBC 4.95 Hgb 14.0 Hct 43.0 MCV 86.9 MCH 28.3 MCHC 32.6 RDW Std Deviation 43.3 RDW Coeff of Yomi 13.7 Plt Count 291 MPV 10.1 Neut % (Auto) Not Reportable Absolute Neuts (auto) 16.3 H Absolute Lymphs (auto) 1.83 Neutrophils % (Manual) 80 H Lymphocytes % (Manual) 9 L Monocytes % (Manual) 5 Eosinophils % (Manual) 2 Myelocytes % 3 H Promyelocytes % 1 H Diff Path Review May foll Platelet Estimate ADEQUATE RBC Morphology NORM C+C Sodium 135 L Potassium 4.2 Chloride 102 Carbon Dioxide 30.0 Anion Gap 3 L BUN 20 H Creatinine 0.72 Estim Creat Clear Calc 122.75 Est GFR (MDRD) Af Amer 145 Est GFR (MDRD) Non-Af 120 BUN/Creatinine Ratio 28.0 H Glucose 111 H Calcium 7.5 L Microbiology 11/15/20 04:25 Blood Culture (Wb) - Left Wrist Blood Culture - Final No growth in 5 days. 11/15/20 01:45 Blood Culture (Wb) - Anticubital Right Blood Culture - Final No growth in 5 days. Clinical Impression(s) from Imaging Studies Chest X-Ray 11/15/20 01:58 IMPRESSION: Confluent groundglass opacities are seen more prominent in the lung bases , may represent bilateral bacterial pneumonia , ARDS or viral pneumonia (COVID-19 ?). Electronically Signed: Russ Andujar MD at 5:06 EDT Tel , Service support , Chest CTA 11/15/20 02:32 IMPRESSION: No overt demonstrated pulmonary embolism, aneurysm, leak or arterial dissection. Cardiac motion is degrading the detail assessment, subtle particularly peripheral pulmonary emboli could be obscured. Cardiomegaly and coronary artery disease. Ground glass opacification likely pulmonary edema. This could represent an inflammatory/infectious process rather than vascular congestion in this patient. Other nonacute findings as outlined above. Electronically Signed: Bebe Rodriguez MD at 4:11 EDT , Service support , Echocardiogram 11/16/20 13:02 Interpretation Summary Normal LV size. Left ventricular systolic function is normal. The estimated ejection fraction is 65 %. Ordering Physician: Cole Bledsoe Performed By: Kalie Wise, MONTRELL, RVT Current Medications Albuterol Sulfate (Albuterol 2.5 Mg/3 Ml Vial.Neb.) 2.5 mg INHALATION Q2H PRN PRN PRN Reason: SOB/Wheezing Dexamethasone Sodium Phosphate (Dexamethasone 10 Mg/Ml Vial) 6 mg IV DAILY [facility] Stop: 11/24/20 10:01 Last Admin: 11/20/20 08:22 Dose: 6 mg Documented by: Enoxaparin Sodium (Enoxaparin 40 Mg/0.4 Ml Syringe) 40 mg SC BID [facility] Last Admin: 11/20/20 21:35 Dose: 40 mg Documented by: Sodium Chloride () 250 mls @ 15 mls/hr IV .[id number] PRN PRN Reason: Saline Flush Last Infusion: 11/19/20 18:12 Dose: 0 mls/hr Documented by: Lisinopril (Lisinopril 20 Mg Tablet) 20 mg PO DAILY [facility] Last Admin: 11/20/20 08:21 Dose: 20 mg Documented by: Melatonin (Melatonin 3 Mg Tablet) 3 mg PO QHS PRN PRN PRN Reason: INSOMNIA Last Admin: 11/16/20 20:35 Dose: 3 mg Documented by: Metoprolol Tartrate (Metoprolol Tartrate 25 Mg Tablet) 25 mg PO BID [facility] Last Admin: 11/20/20 21:36 Dose: 25 mg Documented by: Ondansetron HCl (Ondansetron 4 Mg/2 Ml Vial) 4 mg IV Q8H PRN PRN PRN Reason: NAUSEA/VOMITING Last Admin: 11/20/20 21:36 Dose: 4 mg Documented by: Sodium Chloride (0.9% Saline Lock 10 Ml Syringe) 10 - 40 ml IV UD PRN PRN Reason: SALINE FLUSH Last Admin: 11/20/20 08:23 Dose: 10 ml Documented by: Medical Necessity - Tobacco Use Smoking Status: Never smoker Assessment/Plan All Active Problems (Last Updated 11/15/20 @ 05:[address] Angel Patel MD) Respiratory failure (Acute) Pulmonary edema (Acute) Acute hypoxemic respiratory failure (Acute) Hypertensive emergency (Acute) RECOMMENDATIONS: 1. Continue Decadron to complete 10-day treatment course. 2. Antihypertensive regimen as ordered. 3. Continue patient on heated high flow oxygen and wean FiO2 to maintain saturations at or above 90%. 4. Continue nocturnal BiPAP therapy. IMPRESSIONS: 1. Acute hypoxemic respiratory failure secondary to COVID-19 pneumonia The patient's respiratory failure is likely multifactorial with COVID-19 pneumonia largely contributing, along with uncontrolled hypertension and possible CHF. The patient will be continued on appropriate medical therapy for his Covid infection. The patient has completed a treatment course of remdesivir and remains on Decadron. Echocardiogram was largely unrevealing. The patient is improving from a respiratory perspective, albeit slowly. Continue heated high flow with a goal to wean FiO2 to maintain saturations at or above 90%. 2. Acute kidney injury Resolved. Concern for prerenal etiology. Creatinine has improved at this time. Continue to monitor urine output. No current indication for renal replacement therapy. 3. Hypertension/obesity Complicates care, management, recovery and prognosis. Continue current ant ihypertensive regimen. This note was generated with [employer] Document [employer] dictation software. It may contain incorrect words, spelling, and punctuation that were not noted in checking the note before signing. Inpatient E&M: 39082 Subs Hosp L2
[2020-11-21] MEDS: 0.9% Saline Lock 10 ML Syringe IV (08:52)
[2020-11-21] MEDS: dexAMETHasone 10 MG/ML Vial 6 MG IV (08:53)
[2020-11-21] MEDS: Enoxaparin 40 MG/0.4 ML Syringe SC ×2 (08:53→20:39)
[2020-11-21] MEDS: Metoprolol Tartrate 25 MG Tablet PO ×2 (08:53→20:39)
[2020-11-21] MEDS: Lisinopril 20 MG Tablet PO (08:54)
--- NOTE | 2020-11-21 14:01 | PN_ITS ---
Patient Problems: Active and Suspected Problems (Last Updated 11/15/20 @ 05:[address] Angel Patel MD) Respiratory failure (Acute) Pulmonary edema (Acute) Acute hypoxemic respiratory failure (Acute) Hypertensive emergency (Acute) Subjective: Patient seen and examined. He has no new complaints today. Review of systems otherwise negative. He remains on AirVO. He has otherwise remained hemodynamically stable. Vitals/I&O's: Vital Signs Temp Pulse Resp BP Pulse Ox 97.8 F 60 28 H 139/82 H 96 11/21/20 12:00 11/21/20 12:00 11/21/20 12:00 11/21/20 12:00 11/21/20 12:00 Oxygen Flow Rate (L/min) 5 Oxygen Delivery Method Nasal Cannula Weight: 273 lb 9.498 oz Body Mass Index (BMI) 37.8 Intake and Output for Last 24 Hours 11/19/20 11/20/20 11/21/20 23:59 23:59 23:59 Intake Total 302.75 / 802.75 1140 / 1140 50 / 50 Output Total 1575 / 1950 2125 / 2525 500 / 500 Balance -1272.25 / -1147.25 -985 / -1385 -450 / -450 General: Alert, Oriented x3, Cooperative, No apparent distress HEENT: Atraumatic, PERRLA, EOMI, Normocephalic Oral: Dry Mucosa Neck: Supple, No JVD, Negative Carotid Bruits Lungs: Tachypneic, - - Bilateral crackles and mild wheezing. still hi flow oxygen via airVo Cardiovascular: Regular rate, Regular Rhythm, Normal S1, Normal S2, No murmurs Abdomen: Bowel Sounds Present, Soft, Non Tender, Non-Distended, No Hepato- splenomegaly Extremities: No clubbing, No cyanosis, No edema, Capillary Refill Less than 3 Seconds Skin: No rashes, No breakdown Musculoskeletal: No Tenderness to Palpation of Joints or Extremities Lymphatic: No Cervical, Supraclavicular, or Inguinal Adenopathy Neurological: Cranial nerves II-XII grossly intact, Neuro grossly intact, Motor Exam 5/5 strength throughout Psych/Mental Status: Normal Affect, Appropriate, Alert and oriented to time, place, person, mood and affect Microbiology Past 72 Hours 11/15/20 04:25 Blood Culture (Wb) - Left Wrist Blood Culture - Final No growth in 5 days. 11/15/20 01:45 Blood Culture (Wb) - Anticubital Right Blood Culture - Final No growth in 5 days. Laboratory Results 11/21/20 03:50: WBC 20.4 H, RBC 4.95, Hgb 14.0, Hct 43.0, MCV 86.9, MCH 28.3, MCHC 32.6, RDW Std Deviation 43.3, RDW Coeff of Yomi 13.7, Plt Count 291, MPV 10.1, Neut % (Auto) Not Reportable, Absolute Neuts (auto) 16.3 H, Absolute Lymphs (auto) 1.83, Neutrophils % (Manual) 80 H, Lymphocytes % (Manual) 9 L, Monocytes % (Manual) 5, Eosinophils % (Manual) 2, Myelocytes % 3 H, Promyelocytes % 1 H, Diff Path Review December, Platelet Estimate ADEQUATE, RBC Morphology NORM C+C 11/21/20 03:50: Sodium 135 L, Potassium 4.2, Chloride 102, Carbon Dioxide 30.0, Anion Gap 3 L, BUN 20 H, Creatinine 0.72, Estim Creat Clear Calc 122.75, Est GFR (MDRD) Af Amer 145, Est GFR (MDRD) Non-Af 120, BUN/Creatinine Ratio 28.0 H, Gluc ose 111 H, Calcium 7.5 L Current Medications Albuterol Sulfate (Albuterol 2.5 Mg/3 Ml Vial.Neb.) 2.5 mg INHALATION Q2H PRN PRN PRN Reason: SOB/Wheezing Dexamethasone Sodium Phosphate (Dexamethasone 10 Mg/Ml Vial) 6 mg IV DAILY [facility] Stop: 11/24/20 10:01 Last Admin: 11/21/20 08:53 Dose: 6 mg Documented by: Enoxaparin Sodium (Enoxaparin 40 Mg/0.4 Ml Syringe) 40 mg SC BID [facility] Last Admin: 11/21/20 08:53 Dose: 40 mg Documented by: Sodium Chloride () 250 mls @ 15 mls/hr IV .[id number] PRN PRN Reason: Saline Flush Last Infusion: 11/19/20 18:12 Dose: 0 mls/hr Documented by: Lisinopril (Lisinopril 20 Mg Tablet) 20 mg PO DAILY [facility] Last Admin: 11/21/20 08:54 Dose: 20 mg Documented by: Melatonin (Melatonin 3 Mg Tablet) 3 mg PO QHS PRN PRN PRN Reason: INSOMNIA Last Admin: 11/16/20 20:35 Dose: 3 mg Documented by: Metoprolol Tartrate (Metoprolol Tartrate 25 Mg Tablet) 25 mg PO BID [facility] Last Admin: 11/21/20 08:53 Dose: 25 mg Documented by: Ondansetron HCl (Ondansetron 4 Mg/2 Ml Vial) 4 mg IV Q8H PRN PRN PRN Reason: NAUSEA/VOMITING Last Admin: 11/20/20 21:36 Dose: 4 mg Documented by: Sodium Chloride (0.9% Saline Lock 10 Ml Syringe) 10 - 40 ml IV UD PRN PRN Reason: SALINE FLUSH Last Admin: 11/21/20 08:52 Dose: 10 ml Documented by: STROKE Vital Signs/Narrative: Vital Signs Temp Pulse Resp BP Pulse Ox 11/21/20 12:00 97.8 F 60 28 H 139/82 H 96 11/21/20 11:00 74 Medical Necessity - Tobacco Use Smoking Status: Never smoker Assessment/Plan All Active Problems (Last Updated 11/15/20 @ 05:[address] Angel Patel MD) Respiratory failure (Acute) Pulmonary edema (Acute) Acute hypoxemic respiratory failure (Acute) Hypertensive emergency (Acute) #Acute hypoxic respiratory failure due to COVID 19 infection * remains on hi flow oxygen via AirVO * on breathing treatments with bronchodilators * on IV decadron ; has completed a course of remdesivir * titrate oxygen to maintain sats>90% * critical care on board * blood cultures show no growth after 48 hours, and urine for strep and legionella were negative; * #COVID 19 infection * as above. * #Nonstemi * troponin peaked at 0.820 * cardiology on board; 2D echo showed EF of 65%, with no regional wall motion abnormalities of LV, and normal LV size and function. * likely a type II myocardial infarct due to severe hypoxemia * conservative management for now * #Hypocalcemia: calcoi, os 7.5 yofay. WIll replace. #ALkalosis, likely metabolic * bicarb is now down to 30 * #Hyponatremia: sodium is 135. Will monitor. * #Elevated liver enzymes * stable. #Morbid obesity: BMI is 37. This complicates acute care, expected recovery and prognosis DVT prophylaxis:on lovenox 40mg bid. Inpatient E&M: 33049 Subs Hosp L2
[2020-11-21] MEDS: MELATONIN 3 MG TABLET PO (20:39)
[2020-11-22] VITALS (22 sets, daily range): BP systolic 115–161; BP diastolic 59–83; PULSE 48–82; RESP 12–32; TEMP 36.5–37.1; O2SAT 93–99
[2020-11-22 03:14] LABS: Absolute Lymphocyte Count 1.41 X10^3/uL (0.83-4.51); Basophil% 0.5 % (0-1); Eosinophil# 0.18 X10^3/uL; Eosinophils% 0.9 % (0-5); Hematocrit 43.7 % (40-54); Hemoglobin 14.3 g/dL (13.0-16.5); Lymphocyte # 1.41 X10^3/ul (4.0); Lymphocyte % 7.2 % (19-41); Mean Corp Hgb Conc 32.7 g/dL (32-36); Mean Corpuscular Hgb 28.5 pg (27.0-32.0); Mean Corpuscular Volume 87.1 fL (80-94); Mean Platelet Vol. 10.2 fl (6.2-12.0); Monocyte# 1.09 X10^3/uL; Monocyte% 5.5 % (0-10); NRBC Flagged by Analyzer 0 % (0-5); Neutrophil # 15.97 X10^3/uL (2.7-7.7); Neutrophil % 81.1 % (47-70); Platelet Count 302 K/mm3 (150-450); RBC Distribution Width CV 13.8 % (11.6-14.6); RBC Distribution Width SD 43.3 fl (35.1-43.9); Red Blood Count 5.02 M/mm3 (4.6-6.2); White Blood Count 19.7 K/mm3 (4.4-11.0)
[2020-11-22 03:28] LABS: Anion Gap 5 (5-15); BUN 18 mg/dL (7-18); BUN/Creat Ratio 25.9 RATIO (10-20); Calcium,Total 8.4 mg/dL (8.5-10.1); Chloride 102 mmol/L (98-107); EST Glomerular Filtration Rate 124 mL/min (>60); Est Glom Filt Rate - Afr Amer 150 mL/min (>60); Estimated Creatinine Clearance 126.25 ml/min; Glucose 130 mg/dL (74-106); Potassium 4.8 mmol/L (3.5-5.1); Sodium Level 136 mmol/L (136-145)
--- NOTE | 2020-11-22 05:38 | PN_ITS ---
Patient Problems: Active and Suspected Problems (Last Updated 11/15/20 @ 05:[address] Angel Patel MD) Respiratory failure (Acute) Pulmonary edema (Acute) Acute hypoxemic respiratory failure (Acute) Hypertensive emergency (Acute) Subjective: The patient was seen and examined at the bedside this morning. Events from the last 24 hours have been reviewed. The patient is currently afebrile, hemodynamically stable and maintaining appropriate oxygen saturations on BiPAP currently. The patient was able to be weaned down to nasal cannula supplemental oxygen yesterday at 4 L/min. The patient has since completed his treatment course of remdesivir and is currently on day 7 10 of Decadron. Objective: The patient's most recent lab work, culture data and imaging studies have all been personally reviewed. Coronavirus PCR was positive on November 15. Strep and urine Legionella antigens were negative. Rapid influenza screen was negative. Blood cultures have shown no growth to date. - Physical Exam Vitals/I&O's: Vital Signs Temp Pulse Resp BP Pulse Ox 98.7 F 57 L 29 H 159/82 H 93 11/22/20 03:00 11/22/20 04:10 11/22/20 04:10 11/22/20 03:00 11/22/20 04:10 Oxygen Flow Rate (L/min) 4 Oxygen Delivery Method Bi-pap Weight: 272 lb 14.916 oz Body Mass Index (BMI) 37.8 Intake and Output for Last 24 Hours 11/20/20 11/21/20 11/22/20 23:59 23:59 23:59 Intake Total 1140 / 1140 1730 / 1790 180 / 180 Output Total 2125 / 2525 2750 / 3100 550 / 550 Balance -985 / -1385 -1020 / -1310 -370 / -370 General: Alert, Cooperative HEENT: Atraumatic, Normocephalic Oral: Moist Mucosa, No Gingival or Mucosal Lesions/ Ulcerations Neck: Supple, No Nodes, Trachea Midline Lungs: No rhonchi, No wheeze, No rales, Diminished Cardiovascular: Regular rate, Regular Rhythm Abdomen: Bowel Sounds Present, Soft, Non Tender, Obese Extremities: No clubbing, No cyanosis, No edema Skin: No breakdown Musculoskeletal: No Muscle Wasting Lymphatic: No Cervical, Supraclavicular, or Inguinal Adenopathy Neurological: Cranial nerves II-XII grossly intact, Neuro grossly intact Psych/Mental Status: Normal Affect, Appropriate Labs (Last 48 Hours) 11/20/20 11/21/20 11/21/20 05:08 03:50 03:50 WBC 20.4 H RBC 4.95 Hgb 14.0 Hct 43.0 MCV 86.9 MCH 28.3 MCHC 32.6 RDW Std Deviation 43.3 RDW Coeff of Yomi 13.7 Plt Count 291 MPV 10.1 Immature Gran % (Auto) Neut % (Auto) Not Reportable Lymph % (Auto) Jay % (Auto) Eos % (Auto) Baso % (Auto) Absolute Neuts (auto) 18.3 H 16.3 H Absolute Lymphs (auto) 1.94 1.83 Neutrophils % (Manual) 85 H 80 H Lymphocytes % (Manual) 9 L 9 L Monocytes % (Manual) 3 5 Eosinophils % (Manual) 2 Myelocytes % 3 H 3 H Promyelocytes % 1 H Nucleated RBC % Diff Path Review Reviewed May foll Platelet Estimate ADEQUATE ADEQUATE RBC Morphology NORM C+C NORM C+C Sodium 135 L Potassium 4.2 Chloride 102 Carbon Dioxide 30.0 Anion Gap 3 L BUN 20 H Creatinine 0.72 Estim Creat Clear Calc 122.75 Est GFR (MDRD) Af Amer 145 Est GFR (MDRD) Non-Af 120 BUN/Creatinine Ratio 28.0 H Glucose 111 H Calcium 7.5 L 11/22/20 11/22/20 03:05 03:05 WBC 19.7 H RBC 5.02 Hgb 14.3 Hct 43.7 MCV 87.1 MCH 28.5 MCHC 32.7 RDW Std Deviation 43.3 RDW Coeff of Yomi 13.8 Plt Count 302 MPV 10.2 Immature Gran % (Auto) 4.800 H Neut % (Auto) 81.1 H Lymph % (Auto) 7.2 L Jay % (Auto) 5.5 Eos % (Auto) 0.9 Baso % (Auto) 0.5 Absolute Neuts (auto) 16.0 H Absolute Lymphs (auto) 1.41 Neutrophils % (Manual) Lymphocytes % (Manual) Monocytes % (Manual) Eosinophils % (Manual) Myelocytes % Promyelocytes % Nucleated RBC % 0 Diff Path Review Platelet Estimate RBC Morphology Sodium 136 Potassium 4.8 Chloride 102 Carbon Dioxide 29.0 Anion Gap 5 BUN 18 Creatinine 0.70 Estim Creat Clear Calc 126.25 Est GFR (MDRD) Af Amer 150 Est GFR (MDRD) Non-Af 124 BUN/Creatinine Ratio 25.9 H Glucose 130 H Calcium 8.4 L Microbiology 11/15/20 04:25 Blood Culture (Wb) - Left Wrist Blood Culture - Final No growth in 5 days. 11/15/20 01:45 Blood Culture (Wb) - Anticubital Right Blood Culture - Final No growth in 5 days. Clinical Impression(s) from Imaging Studies Chest X-Ray 11/15/20 01:58 IMPRESSION: Confluent groundglass opacities are seen more prominent in the lung bases , may represent bilateral bacterial pneumonia , ARDS or viral pneumonia (COVID-19 ?). Electronically Signed: Russ Andujar MD at 5:06 EDT Tel , Service support , Chest CTA 11/15/20 02:32 IMPRESSION: No overt demonstrated pulmonary embolism, aneurysm, leak or arterial dissection. Cardiac motion is degrading the detail assessment, subtle particularly peripheral pulmonary emboli could be obscured. Cardiomegaly and coronary artery disease. Ground glass opacification likely pulmonary edema. This could represent an inflammatory/infectious process rather than vascular congestion in this patient. Other nonacute findings as outlined above. Electronically Signed: Bebe Rodriguez MD at 4:11 EDT , Service support , Echocardiogram 11/16/20 13:02 Interpretation Summary Normal LV size. Left ventricular systolic function is normal. The estimated ejection fraction is 65 %. Ordering Physician: Cole Bledsoe Performed By: Kalie Wise, RDCS, RVT Current Medications Albuterol Sulfate (Albuterol 2.5 Mg/3 Ml Vial.Neb.) 2.5 mg INHALATION Q2H PRN PRN PRN Reason: SOB/Wheezing Dexamethasone Sodium Phosphate (Dexamethasone 10 Mg/Ml Vial) 6 mg IV DAILY [facility]S [facility] 234 BEDS AT [facility] Stop: 11/24/20 10:01 Last Admin: 11/21/20 08:53 Dose: 6 mg Documented by: Enoxaparin Sodium (Enoxaparin 40 Mg/0.4 Ml Syringe) 40 mg SC BID [facility] 234 BEDS AT [facility] Last Admin: 11/21/20 20:39 Dose: 40 mg Documented by: Sodium Chloride () 250 mls @ 15 mls/hr IV .[id number] PRN PRN Reason: Saline Flush Last Infusion: 11/19/20 18:12 Dose: 0 mls/hr Documented by: Lisinopril (Lisinopril 20 Mg Tablet) 20 mg PO DAILY [facility] 234 BEDS AT [facility] Last Admin: 11/21/20 08:54 Dose: 20 mg Documented by: Melatonin (Melatonin 3 Mg Tablet) 3 mg PO QHS PRN PRN PRN Reason: INSOMNIA Last Admin: 11/21/20 20:39 Dose: 3 mg Documented by: Metoprolol Tartrate (Metoprolol Tartrate 25 Mg Tablet) 25 mg PO BID [facility] 234 BEDS AT [facility] Last Admin: 11/21/20 20:39 Dose: 25 mg Documented by: Ondansetron HCl (Ondansetron 4 Mg/2 Ml Vial) 4 mg IV Q8H PRN PRN PRN Reason: NAUSEA/VOMITING Last Admin: 11/20/20 21:36 Dose: 4 mg Documented by: Sodium Chloride (0.9% Saline Lock 10 Ml Syringe) 10 - 40 ml IV UD PRN PRN Reason: SALINE FLUSH Last Admin: 11/21/20 08:52 Dose: 10 ml Documented by: Medical Necessity - Tobacco Use Smoking Status: Never smoker Assessment/Plan All Active Problems (Last Updated 11/15/20 @ 05:[address] Angel Patel MD) Respiratory failure (Acute) Pulmonary edema (Acute) Acute hypoxemic respiratory failure (Acute) Hypertensive emergency (Acute) RECOMMENDATIONS: 1. Continue Decadron to complete 10-day treatment course. 2. Antihypertensive regimen as ordered. 3. Continue supplemental oxygen via nasal cannula to maintain saturations at or above 90%. 4. Continue nocturnal BiPAP therapy. IMPRESSIONS: 1. Acute hypoxemic respiratory failure secondary to COVID-19 pneumonia The patient's respiratory failure is likely multifactorial with COVID-19 pneumonia largely contributing, along with uncontrolled hypertension and possible CHF. The patient will be continued on appropriate medical therapy for his Covid infection. The patient has completed a treatment course of remdesivir and remains on Decadron. Echocardiogram was largely unrevealing. The patient is improving from a respiratory perspective, albeit slowly. Plan to continue to wean supplemental oxygen to maintain saturations at or above 90%. Encourage incentive spirometer use and mobilize patient as tolerated. 2. Acute kidney injury Resolved. Concern for prerenal etiology. Creatinine has improved at this time. Continue to monitor urine output. No current indication for renal replacement therapy. 3. Hypertension/obesity Complicates care, management, recovery and prognosis. Continue current antihypertensive regimen. This note was generated with [employer] dictation software. It may contain incorrect words, spelling, and punctuation that were not noted in checking the note before signing. Inpatient E&M: 50055 Subs Hosp L2
[2020-11-22] MEDS: Enoxaparin 40 MG/0.4 ML Syringe SC ×2 (09:26→20:29)
[2020-11-22] MEDS: Metoprolol Tartrate 25 MG Tablet PO ×2 (09:26→20:29)
[2020-11-22] MEDS: dexAMETHasone 10 MG/ML Vial 6 MG IV (09:26)
[2020-11-22] MEDS: 0.9% Saline Lock 10 ML Syringe IV ×2 (09:27→12:35)
[2020-11-22] MEDS: Lisinopril 20 MG Tablet PO (09:27)
--- NOTE | 2020-11-22 12:53 | PN_ITS ---
Patient Problems: Active and Suspected Problems (Last Updated 11/15/20 @ 05:[address] Angel Patel MD) Respiratory failure (Acute) Pulmonary edema (Acute) Acute hypoxemic respiratory failure (Acute) Hypertensive emergency (Acute) Subjective: Patient seen and examined. He is off Airvo and now on oxygen by nasal canula-4L. Patient had no complaints this morning. However he easily desaturates upon getting up and moving to the chair or commode. He desaturates as low as the 70s. He however feels much better and review of systems otherwise negative. He has completed a course of remdesivir and is on day 7 out of 10 of Decadron. Vitals/I&O's: Vital Signs Temp Pulse Resp BP Pulse Ox 97.7 F L 61 25 H 115/80 94 11/22/20 12:00 11/22/20 12:00 11/22/20 12:00 11/22/20 12:00 11/22/20 12:34 Oxygen Flow Rate (L/min) 4 Oxygen Delivery Method Nasal Cannula Weight: 272 lb 14.916 oz Body Mass Index (BMI) 37.8 Intake and Output for Last 24 Hours 11/20/20 11/21/20 11/22/20 23:59 23:59 23:59 Intake Total 1140 / 1140 1730 / 1790 1130 / 1130 Output Total 2125 / 2525 2750 / 3100 1175 / 1175 Balance -985 / -1385 -1020 / -1310 -45 / -45 General: Alert, Oriented x3, Cooperative, No apparent distress HEENT: Atraumatic, PERRLA, EOMI, Normocephalic Oral: Dry Mucosa Neck: Supple, No JVD, Negative Carotid Bruits Lungs: Tachypneic, - - Bilateral crackles and mild wheezing. now on oxygen via nasal canula 4L. Cardiovascular: Regular rate, Regular Rhythm, Normal S1, Normal S2, No murmurs Abdomen: Bowel Sounds Present, Soft, Non Tender, Non-Distended, No Hepato- splenomegaly Extremities: No clubbing, No cyanosis, No edema, Capillary Refill Less than 3 S econds Skin: No rashes, No breakdown Musculoskeletal: No Tenderness to Palpation of Joints or Extremities Lymphatic: No Cervical, Supraclavicular, or Inguinal Adenopathy Neurological: Cranial nerves II-XII grossly intact, Neuro grossly intact, Motor Exam 5/5 strength throughout Psych/Mental Status: Normal Affect, Appropriate, Alert and oriented to time, place, person, mood and affect Microbiology Past 72 Hours 11/15/20 04:25 Blood Culture (Wb) - Left Wrist Blood Culture - Final No growth in 5 days. 11/15/20 01:45 Blood Culture (Wb) - Anticubital Right Blood Culture - Final No growth in 5 days. Laboratory Results 11/22/20 03:05: WBC 19.7 H, RBC 5.02, Hgb 14.3, Hct 43.7, MCV 87.1, MCH 28.5, MCHC 32.7, RDW Std Deviation 43.3, RDW Coeff of Yomi 13.8, Plt Count 302, MPV 10.2, Immature Gran % (Auto) 4.800 H, Neut % (Auto) 81.1 H, Lymph % (Auto) 7.2 L , [place] % (Auto) 5.5, Eos % (Auto) 0.9, Baso % (Auto) 0.5, Absolute Neuts (auto) 16.0 H, Absolute Lymphs (auto) 1.41, Nucleated RBC % 0 11/22/20 03:05: Sodium 136, Potassium 4.8, Chloride 102, Carbon Dioxide 29.0, Anion Gap 5, BUN 18, Creatinine 0.70, Estim Creat Clear Calc 126.25, Est GFR (MDRD) Af Amer 150, Est GFR (MDRD) Non-Af 124, BUN/Creatinine Ratio 25.9 H, Glucose 130 H, Calcium 8.4 L Current Medications Albuterol Sulfate (Albuterol 2.5 Mg/3 Ml Vial.Neb.) 2.5 mg INHALATION Q2H PRN PRN PRN Reason: SOB/Wheezing Dexamethasone Sodium Phosphate (Dexamethasone 10 Mg/Ml Vial) 6 mg IV DAILY VIKTORIYA Stop: 11/24/20 10:01 Last Admin: 11/22/20 09:26 Dose: 6 mg Documented by: Enoxaparin Sodium (Enoxaparin 40 Mg/0.4 Ml Syringe) 40 mg SC BID VIKTORIYA Last Admin: 11/22/20 09:26 Dose: 40 mg Documented by: Sodium Chloride () 250 mls @ 15 mls/hr IV .[id number] PRN PRN Reason: Saline Flush Last Infusion: 11/19/20 18:12 Dose: 0 mls/hr Documented by: Lisinopril (Lisinopril 20 Mg Tablet) 20 mg PO DAILY [facility] Last Admin: 11/22/20 09:27 Dose: 20 mg Documented by: Melatonin (Melatonin 3 Mg Tablet) 3 mg PO QHS PRN PRN PRN Reason: INSOMNIA Last Admin: 11/21/20 20:39 Dose: 3 mg Documented by: Metoprolol Tartrate (Metoprolol Tartrate 25 Mg Tablet) 25 mg PO BID [facility] Last Admin: 11/22/20 09:26 Dose: 25 mg Documented by: Ondansetron HCl (Ondansetron 4 Mg/2 Ml Vial) 4 mg IV Q8H PRN PRN PRN Reason: NAUSEA/VOMITING Last Admin: 11/20/20 21:36 Dose: 4 mg Documented by: Sodium Chloride (0.9% Saline Lock 10 Ml Syringe) 10 - 40 ml IV UD PRN PRN Reason: SALINE FLUSH Last Admin: 11/22/20 12:35 Dose: 10 ml Documented by: STROKE Vital Signs/Narrative: Vital Signs Temp Pulse Resp BP Pulse Ox 11/22/20 12:34 94 11/22/20 12:00 97.7 F L 61 25 H 115/80 96 11/22/20 09:40 94 11/22/20 09:26 74 144/59 H 11/22/20 09:00 97.9 F 71 28 H 144/59 H 94 Medical Necessity - Tobacco Use Smoking Status: Never smoker Assessment/Plan All Active Problems (Last Updated 11/15/20 @ 05:[address] Angel Patel MD) Respiratory failure (Acute) Pulmonary edema (Acute) Acute hypoxemic respiratory failure (Acute) Hypertensive emergency (Acute) #Acute hypoxic respiratory failure due to COVID 19 infection * rnow off AirVo. On 4L of oxygen by nasal canula. desaturates very easily though * on breathing treatments with bronchodilators * on IV decadron ; has completed a course of remdesivir * titrate oxygen to maintain sats>90% * critical care on board * blood cultures show no growth after 48 hours, and urine for strep and legionella were negative; * #COVID 19 infection * as above. * #Nonstemi * troponin peaked at 0.820 * cardiology on board; 2D echo showed EF of 65%, with no regional wall motion abnormalities of LV, and normal LV size and function. * likely a type II myocardial infarct due to severe hypoxemia * conservative management for now * #Hypocalcemia:calcium is 8.4 today. Will monitor #ALkalosis, likely metabolic * resolved. Bicarb is 29 today * #Hyponatremia: resolved. na is 136 * #Elevated liver enzymes * stable. #Morbid obesity: BMI is 37. This complicates acute care, expected recovery and prognosis DVT prophylaxis:on lovenox 40mg bid. Disposition: for likely dc home tomorrow. WIll likely need home oxygen. Inpatient E&M: 11322 Subs Hosp L2
[2020-11-23] VITALS (12 sets, daily range): BP systolic 125–163; BP diastolic 78–83; PULSE 58–84; RESP 18–30; TEMP 36.1–36.9; O2SAT 83–96
[2020-11-23 05:05] LABS: Absolute Lymphocyte Count 1.71 X10^3/uL (0.83-4.51); Basophil# 0.09 X10^3/uL; Basophil% 0.4 % (0-1); Eosinophil# 0.15 X10^3/uL; Eosinophils% 0.7 % (0-5); Hemoglobin 14.4 g/dL (13.0-16.5); Lymphocyte # 1.71 X10^3/ul (4.0); Lymphocyte % 8.1 % (19-41); Mean Corp Hgb Conc 33.5 g/dL (32-36); Mean Corpuscular Hgb 28.7 pg (27.0-32.0); Mean Corpuscular Volume 85.8 fL (80-94); Mean Platelet Vol. 10.4 fl (6.2-12.0); Monocyte# 1.29 X10^3/uL; Monocyte% 6.1 % (0-10); NRBC Flagged by Analyzer 0 % (0-5); Neutrophil # 16.98 X10^3/uL (2.7-7.7); Neutrophil % 80.9 % (47-70); Platelet Count 326 K/mm3 (150-450); RBC Distribution Width CV 13.7 % (11.6-14.6); RBC Distribution Width SD 42.3 fl (35.1-43.9); Red Blood Count 5.01 M/mm3 (4.6-6.2)
[2020-11-23 05:19] LABS: Anion Gap 5 (5-15); BUN 18 mg/dL (7-18); BUN/Creat Ratio 23.7 RATIO (10-20); Calcium,Total 8.5 mg/dL (8.5-10.1); Chloride 100 mmol/L (98-107); Creatinine, Serum 0.76 mg/dL (0.70-1.30); EST Glomerular Filtration Rate 112 mL/min (>60); Est Glom Filt Rate - Afr Amer 135 mL/min (>60); Estimated Creatinine Clearance 116.29 ml/min; Glucose 128 mg/dL (74-106); Potassium 4.6 mmol/L (3.5-5.1); Sodium Level 133 mmol/L (136-145)
--- NOTE | 2020-11-23 06:59 | PN_ITS ---
Patient Problems: Active and Suspected Problems (Last Updated 11/15/20 @ 05:[address] Angel Patel MD) Respiratory failure (Acute) Pulmonary edema (Acute) Acute hypoxemic respiratory failure (Acute) Hypertensive emergency (Acute) Subjective: Patient did well overnight. No acute issues were reported. Patient did not use BiPAP and tolerated 3 L well. Patient denies any chest pain, nominal pain, nausea or vomiting this morning. - Physical Exam Vitals/I&O's: Vital Signs Temp Pulse Resp BP Pulse Ox 36.6 C 58 L 19 H 145/83 H 96 11/23/20 04:00 11/23/20 04:00 11/23/20 04:00 11/23/20 04:00 11/23/20 04:00 Oxygen Flow Rate (L/min) 3 Oxygen Delivery Method Nasal Cannula Weight: 121.9 kg Body Mass Index (BMI) 37.8 Intake and Output for Last 24 Hours 11/21/20 11/22/20 11/23/20 23:59 23:59 23:59 Intake Total 1730 / 1790 1970 / 2210 420 / 420 Output Total 2750 / 3100 3025 / 4025 1750 / 1750 Balance -1020 / -1310 -1055 / -1815 -1330 / -1330 General: Alert, Oriented x3, Cooperative, No apparent distress, Well developed, Well nourished, - - Obese. Appears older than stated age. HEENT: Atraumatic, PERRLA, EOMI, Normocephalic, - - No epistaxis. Oral: Moist Mucosa, No Gingival or Mucosal Lesions/ Ulcerations Neck: Supple, No JVD, No Nodes, Trachea Midline Lungs: No rhonchi, No wheeze, No rales, Diminished, - - Symmetric expansion. No dullness to percussion. Cardiovascular: Regular Rhythm, Normal S1, Normal S2, No murmurs, Bradycardic, No rub noted, No Gallop Abdomen: Bowel Sounds Present, Soft, Non Tender, Non-Distended Extremities: No clubbing, No cyanosis, Edema - Trace lower extremity Skin: - - No change from previous Musculoskeletal: No Tenderness to Palpation of Joints or Extremities Lymphatic: No Cervical, Supraclavicular, or Inguinal Adenopathy Neurological: Cranial nerves II-XII grossly intact, Neuro grossly intact, Motor Exam 5/5 strength throughout Psych/Mental Status: Appropriate, Flat Affect Microbiology Past 72 Hours 11/15/20 04:25 Blood Culture (Wb) - Left Wrist Blood Culture - Final No growth in 5 days. 11/15/20 01:45 Blood Culture (Wb) - Anticubital Right Blood Culture - Final No growth in 5 days. Laboratory Results 11/23/20 04:45: WBC 21.0 H, RBC 5.01, Hgb 14.4, Hct 43.0, MCV 85.8, MCH 28.7, MCHC 33.5, RDW Std Deviation 42.3, RDW Coeff of Yomi 13.7, Plt Count 326, MPV 10.4, Immature Gran % (Auto) 3.800 H, Neut % (Auto) 80.9 H, Lymph % (Auto) 8.1 L , [place] % (Auto) 6.1, Eos % (Auto) 0.7, Baso % (Auto) 0.4, Absolute Neuts (auto) 17.0 H, Absolute Lymphs (auto) 1.71, Nucleated RBC % 0 11/23/20 04:45: Sodium 133 L, Potassium 4.6, Chloride 100, Carbon Dioxide 28.0, Anion Gap 5, BUN 18, Creatinine 0.76, Estim Creat Clear Calc 116.29, Est GFR (MDRD) Af Amer 135, Est GFR (MDRD) Non-Af 112, BUN/Creatinine Ratio 23.7 H, Glucose 128 H, Calcium 8.5 Current Medications Albuterol Sulfate (Albuterol 2.5 Mg/3 Ml Vial.Neb.) 2.5 mg INHALATION Q2H PRN PRN PRN Reason: SOB/Wheezing Dexamethasone Sodium Phosphate (Dexamethasone 10 Mg/Ml Vial) 6 mg IV DAILY [facility] Stop: 11/24/20 10:01 Last Admin: 11/22/20 09:26 Dose: 6 mg Documented by: Enoxaparin Sodium (Enoxaparin 40 Mg/0.4 Ml Syringe) 40 mg SC BID VIKTORIYA Last Admin: 11/22/20 20:29 Dose: 40 mg Documented by: Sodium Chloride () 250 mls @ 15 mls/hr IV .[id number] PRN PRN Reason: Saline Flush Last Infusion: 11/19/20 18:12 Dose: 0 mls/hr Documented by: Lisinopril (Lisinopril 20 Mg Tablet) 20 mg PO DAILY [facility] Last Admin: 11/22/20 09:27 Dose: 20 mg Documented by: Melatonin (Melatonin 3 Mg Tablet) 3 mg PO QHS PRN PRN PRN Reason: INSOMNIA Last Admin: 11/21/20 20:39 Dose: 3 mg Documented by: Metoprolol Tartrate (Metoprolol Tartrate 25 Mg Tablet) 25 mg PO BID [facility] Last Admin: 11/22/20 20:29 Dose: 25 mg Documented by: Ondansetron HCl (Ondansetron 4 Mg/2 Ml Vial) 4 mg IV Q8H PRN PRN PRN Reason: NAUSEA/VOMITING Last Admin: 11/20/20 21:36 Dose: 4 mg Documented by: Sodium Chloride (0.9% Saline Lock 10 Ml Syringe) 10 - 40 ml IV UD PRN PRN Reason: SALINE FLUSH Last Admin: 11/22/20 12:35 Dose: 10 ml Documented by: Medical Necessity - Tobacco Use Smoking Status: Never smoker Assessment/Plan All Active Problems (Last Updated 11/15/20 @ 05:[address] Angel Patel MD) Respiratory failure (Acute) Pulmonary edema (Acute) Acute hypoxemic respiratory failure (Acute) Hypertensive emergency (Acute) RECOMMENDATIONS: 1. Continue Decadron to complete 10-day treatment course. 2. Antihypertensive regimen as ordered. 3. Continue supplemental oxygen via nasal cannula to maintain saturations at or above 90%. 4. Continue nocturnal BiPAP therapy. 5. Walking oximetry prior to discharge 6. Okay to discharge if tolerates 6 L or less with ambulation. Complete 10- day course of Decadron 7. Follow-up with nurse practitioner in our office in 3 to 4 weeks to evaluate cessation of supplemental oxygen IMPRESSIONS: 1. Acute hypoxemic respiratory failure secondary to COVID-19 pneumonia The patient's respiratory failure is likely multifactorial with COVID-19 pneumonia largely contributing, along with uncontrolled hypertension and possible CHF. The patient will be continued on appropriate medical therapy for his Covid infection. The patient has completed a treatment course of remdesivir and remains on Decadron. Echocardiogram was largely unrevealing. The patient is improving from a respiratory perspective, albeit slowly. Plan to continue to wean supplemental oxygen to maintain saturations at or above 90%. Encourage incentive spirometer use and mobilize patient as tolerated. Patient encouraged to obtain a pulse oximeter for home. Okay to discharge if tolerates 6 L or less and completed a 10-day course of Decadron. 2. Acute kidney injury Resolved. Concern for prerenal etiology. Creatinine has improved at this time. Continue to monitor urine output. No current indication for renal replacement therapy. 3. Hypertension/obesity Complicates care, management, recovery and prognosis. Continue current antihypertensive regimen. Inpatient E&M: 69370 Subs Hosp L2
[2020-11-23] MEDS: Lisinopril 20 MG Tablet PO (10:00)
[2020-11-23] MEDS: dexAMETHasone 10 MG/ML Vial 6 MG IV (10:00)
[2020-11-23] MEDS: Enoxaparin 40 MG/0.4 ML Syringe SC (10:00)
[2020-11-23] MEDS: Metoprolol Tartrate 25 MG Tablet PO (10:00)
[2020-11-23] MEDS: 0.9% Saline Lock 10 ML Syringe IV (10:01)
[2020-11-23 12:17] LABS: Pathologist Review Reviewed
--- NOTE | 2020-11-23 13:20 | CASEMGMT ---
VERONICA RODRIGUEZ updated that patient will need home oxygen at discharge. VERONICA ORDRIGUEZ called patient in room to discuss DME companies. VERONICA RODRIGUEZ provided list of companies over the phone to patient and patient prefers [employer]. VERONICA RODRIGUEZ received script for home oxygen. Referral sent to [facility] [place] and arranged for portable tank to be delivered to hospital prior to discharge.
--- NOTE | 2020-11-23 14:26 | DCINST_ITS ---
- Discharge Diagnoses Current Active Problems: Current Active and Chronic Problems (Last Updated 11/15/20 @ 05:[address] Angel Patel MD) Respiratory failure (Acute) Pulmonary edema (Acute) Acute hypoxemic respiratory failure (Acute) Hypertensive emergency (Acute) No previous medical history (Chronic) You will use the following diet at home:: No restrictions Your food should be the consistency of: Regular Your liquids should be the consistency of: Regular/Thin Call your doctor if you observe: Fever of 101 or Higher, Shortness of breath Additional Instructions: Self isolate for at least 21 days since symptoms began 11/11/2020 AND at least one day (24 hours) have passed since resolution of fever without the use of fever-reducing agents AND improvement of symptoms (e.g., cough, shortness of breath) When around people in the same room, wear a face mask. Individuals also in the room should wear a mask. If possible, use a different bathroom and bedroom. Perform adequate hand hygiene. Avoid sharing dishes, glasses, etc. Family members with close contact with you and/or postive for COVID-19 should follow these instructions. Allergies/Adverse Reactions: Allergies No Known Allergies Allergy (Verified 11/15/20 02:57) Medications to take at Discharge Albuterol Inhaler [Ventolin Hfa] 1 - 2 puff INHALATION Q4H PRN PRN #1 inhaler 11/23/20 Dexamethasone 6 mg PO DAILY #1 tablet 11/23/20 Lisinopril [Zestril] 20 mg PO DAILY #30 tablet 11/23/20 Metoprolol Tartrate [Lopressor (beta kathy)] 25 mg PO BID #60 tablet 11/23/20 The following prescriptions were given: Dexamethasone 6 mg PO DAILY #1 tablet Transmission Status: Pending to [facility] Metoprolol Tartrate [Lopressor (beta kathy)] 25 mg PO BID #60 tablet Transmission Status: Pending to [facility] Albuterol Inhaler [Ventolin Hfa] 1 - 2 puff INHALATION Q4H PRN PRN #1 inhaler PRN Reason: Shortness Of Breath Transmission Status: Pending to [facility] Lisinopril [Zestril] 20 mg PO DAILY #30 tablet Transmission Status: Pending to [facility] Primary Care Physician: [facility] Doctor,Out of [NON-STAFF] - Please follow up with your Primary Care Physician in: PCP in 2 weeks Test Results: Test results from this visit will be discussed in further detail at your follow- up appointment, if applicable. Proposed Discharge Date: 11/23/20
--- NOTE | 2020-11-23 14:29 | DS.PCM_ITS ---
Discharge Date and Diagnosis - Problem List Patient Problems: Active and Suspected Problems (Last Updated 11/15/20 @ 05:[address] Angel Patel MD) Respiratory failure (Acute) Pulmonary edema (Acute) Acute hypoxemic respiratory failure (Acute) Hypertensive emergency (Acute) Date of Admission: 11/15/20 Date of Discharge: 11/23/20 - Primary Discharge Diagnosis Acute Problems: Active Problems (Last Updated 11/15/20 @ 05:[address] Angel Patel MD) acute hypoxic respiratory failure acute COVID-19 pneumonia NSTEMI, acute - Secondary Discharge Diagnosis Chronic Problems: Chronic Problems (Last Updated 11/15/20 @ 05:[address] Angel Patel MD) No previous medical history (Chronic) Hospital Course and Treatment Imaging Results: Clinical Impression(s) from Imaging Studies Chest X-Ray 11/15/20 01:58 IMPRESSION: Confluent groundglass opacities are seen more prominent in the lung bases , may represent bilateral bacterial pneumonia , ARDS or viral pneumonia (COVID-19 ?). Electronically Signed: Russ Andujar MD at 5:06 EDT Tel , Service support , Chest CTA 11/15/20 02:32 IMPRESSION: No overt demonstrated pulmonary embolism, aneurysm, leak or arterial dissection. Cardiac motion is degrading the detail assessment, subtle particularly peripheral pulmonary emboli could be obscured. Cardiomegaly and coronary artery disease. Ground glass opacification likely pulmonary edema. This could represent an inflammatory/infectious process rather than vascular congestion in this patient. Other nonacute findings as outlined above. Electronically Signed: Bebe Rodriguez MD at 4:11 EDT , Service support , Echocardiogram 11/16/20 13:02 Interpretation Summary Normal LV size. Left ventricular systolic function is normal. The estimated ejection fraction is 65 %. Ordering Physician: Cole Bledsoe Performed By: Kalie Wise, RDCS, RVT Larry Yanes, cardiology Yuri/Kobi [facility] Summary of Care Provided: The patient is a 60 year old M presents with shortness of breath. Symptoms began roughly 3 days prior to presentation. Patient was found by squad to have a pulse ox in the 40 to 50%. And did require nonrebreather which improved to 70%. In the emergency room, patient was put on BiPAP. About 2 weeks prior patient did have his first of 2 mode during the Covid vaccinations. Patient's rapid antigen was negative, however, his PCR was positive. Patient started treatment with remdesivir as well as dexamethasone. Overall, patient's oxygenation has improved and patient was 83% on room air but was 90% on 3 L nasal cannula. Patient required oxygen 3 L nasal cannula with activity and rest for the time being. Patient also had elevated troponins, troponins went as high as 0.82. Patient was seen by cardiology who felt this was a type II myocardial and infarction due to his severe hypoxemia as well as sinus tachycardia and COVID-19 pneumonia. Patient had an echocardiogram that showed an EF of 65%. Cardiology recommended metoprolol as well as lisinopril patient has remained stable. No additional cardiac work-up would be performed during this hospitalization. Patient will be discharged today in stable condition. Patient may get his second COVID-19 vaccination once he is completed quarantine. [] Patient Problems: Active and Suspected Problems (Last Updated 11/15/20 @ 05:[address] Angel Patel MD) Respiratory failure (Acute) Pulmonary edema (Acute) Acute hypoxemic respiratory failure (Acute) Hypertensive emergency (Acute) - Physical Exam Vitals/I&O's: Vital Signs Temp Pulse Resp BP Pulse Ox 36.9 C 75 30 H 161/79 H 92 11/23/20 10:03 11/23/20 10:11/23/20 10:11/23/20 10:11/23/20 13:22 Oxygen Flow Rate (L/min) [ 3 AMBULATING with Oxygen #1] Oxygen Flow Rate (L/min) [At 3 REST with Oxygen] Oxygen Flow Rate (L/min) 3 Oxygen Delivery Method Nasal Cannula Weight: 121.9 kg Body Mass Index (BMI) 37.8 Intake and Output for Last 24 Hours 11/21/20 11/22/20 11/23/20 23:59 23:59 23:59 Intake Total 1730 / 1790 1970 / 2210 420 / 420 Output Total 2750 / 3100 3025 / 4025 2650 / 2650 Balance -1020 / -1310 -1055 / -1815 -2230 / -2230 General: Alert, No apparent distress HEENT: Atraumatic, Normocephalic Oral: Moist Mucosa, No Gingival or Mucosal Lesions/ Ulcerations Neck: No Nodes, Thyroid Normal Size and Texture Lungs: Clear to auscultation, Diminished Cardiovascular: Regular rate, Regular Rhythm, Normal S1, Normal S2, No murmurs Abdomen: Bowel Sounds Present, Soft, Non Tender, Non-Distended, No Hepato- splenomegaly Extremities: No edema, No Calf Tenderness Psych/Mental Status: Normal Affect, Appropriate Laboratory Results 11/21/20 03:50: Diff Path Review Reviewed 11/23/20 04:45: WBC 21.0 H, RBC 5.01, Hgb 14.4, Hct 43.0, MCV 85.8, MCH 28.7, MCHC 33.5, RDW Std Deviation 42.3, RDW Coeff of Yomi 13.7, Plt Count 326, MPV 10.4, Immature Gran % (Auto) 3.800 H, Neut % (Auto) 80.9 H, Lymph % (Auto) 8.1 L , [place] % (Auto) 6.1, Eos % (Auto) 0.7, Baso % (Auto) 0.4, Absolute Neuts (auto) 17.0 H, Absolute Lymphs (auto) 1.71, Nucleated RBC % 0 11/23/20 04:45: Sodium 133 L, Potassium 4.6, Chloride 100, Carbon Dioxide 28.0, Anion Gap 5, BUN 18, Creatinine 0.76, Estim Creat Clear Calc 116.29, Est GFR (MDRD) Af Amer 135, Est GFR (MDRD) Non-Af 112, BUN/Creatinine Ratio 23.7 H, Glucose 128 H, Calcium 8.5 Current Medications Albuterol Sulfate (Albuterol 2.5 Mg/3 Ml Vial.Neb.) 2.5 mg INHALATION Q2H PRN PRN PRN Reason: SOB/Wheezing Dexamethasone Sodium Phosphate (Dexamethasone 10 Mg/Ml Vial) 6 mg IV DAILY [facility] Stop: 11/24/20 10:01 Last Admin: 11/23/20 10:00 Dose: 6 mg Documented by: Enoxaparin Sodium (Enoxaparin 40 Mg/0.4 Ml Syringe) 40 mg SC BID [facility] Last Admin: 11/23/20 10:00 Dose: 40 mg Documented by: Sodium Chloride () 250 mls @ 15 mls/hr IV .[id number] PRN PRN Reason: Saline Flush Last Infusion: 11/19/20 18:12 Dose: 0 mls/hr Documented by: Lisinopril (Lisinopril 20 Mg Tablet) 20 mg PO DAILY [facility] Last Admin: 11/23/20 10:00 Dose: 20 mg Documented by: Melatonin (Melatonin 3 Mg Tablet) 3 mg PO QHS PRN PRN PRN Reason: INSOMNIA Last Admin: 11/21/20 20:39 Dose: 3 mg Documented by: Metoprolol Tartrate (Metoprolol Tartrate 25 Mg Tablet) 25 mg PO BID [facility] Last Admin: 11/23/20 10:00 Dose: 25 mg Documented by: Ondansetron HCl (Ondansetron 4 Mg/2 Ml Vial) 4 mg IV Q8H PRN PRN PRN Reason: NAUSEA/VOMITING Last Admin: 11/20/20 21:36 Dose: 4 mg Documented by: Sodium Chloride (0.9% Saline Lock 10 Ml Syringe) 10 - 40 ml IV UD PRN PRN Reason: SALINE FLUSH Last Admin: 11/23/20 10:01 Dose: 10 ml Documented by: Discharge Diet: No Restrictions Call your doctor if you observe: Fever of 101 or Higher, Shortness of breath Home Medications: Medications to take at Discharge Albuterol Inhaler [Ventolin Hfa] 1 - 2 puff INHALATION Q4H PRN PRN #1 inhaler 11/23/20 Dexamethasone 6 mg PO DAILY #1 tablet 11/23/20 Lisinopril [Zestril] 20 mg PO DAILY #30 tablet 11/23/20 Metoprolol Tartrate [Lopressor (beta kathy)] 25 mg PO BID #60 tablet 11/23/20 Following Prescriptions Were Given to Patient: Dexamethasone 6 mg PO DAILY #1 tablet Transmission Status: Pending to [facility] Metoprolol Tartrate [Lopressor (beta kathy)] 25 mg PO BID #60 tablet Transmission Status: Pending to [facility] Albuterol Inhaler [Ventolin Hfa] 1 - 2 puff INHALATION Q4H PRN PRN #1 inhaler PRN Reason: Shortness Of Breath Transmission Status: Pending to [facility] Lisinopril [Zestril] 20 mg PO DAILY #30 tablet Transmission Status: Pending to [facility] Primary Care Physician: Susie King,Out of [NON-STAFF] - Please follow up with your Primary Care Physician in: PCP in 2 weeks Disposition: Home Minutes spent on discharge:: 35 Patient Condition:: Fair Medical Necessity - Tobacco Use Smoking Status: Never smoker Meaningful Use Info Meaningful Use Diagnoses (Choose all that apply): None applicable Inpatient E&M: 87182 [facility] Hosp
--- NOTE | 2020-11-24 14:34 | CASEMGMT ---
VERONICA RODRIGUEZ Discharge Follow-up Phone Call: MICKIE: Gay Strata: 2 Call Date: 11/24/20 Discharge Date: 11/23/20 Time of Call: 1435 Duration: 5 min Admitting Diagnosis: covid-19 VERONICA RODRIGUEZ completed follow-up phone call after recent hospitalization. Patient states he is wearing his oxygen and resting. Patient states he has no questions or concerns regarding discharge instructions. Patient was able to fill prescriptions without any issues. VERONICA RODRIGUEZ provided patient with Dr. Welch's office number to schedule follow-up appt. VERONICA RODRIGUEZ encouraged patient to get established with PCP and to complete Medicaid application. Patient voiced understanding and had no further questions or concerns at this time.
== END 2020-11-23 16:19 | disposition home or self-care (01) | DRG 177 ==
LOC: ED 04:19 → ICU 04:49
PROVIDERS: Internal Medicine; Student in an Organized Health Care Education/Training Program; Admitting Provider Hospitalist; Emergency Provider Emergency Medicine
DX: U07.1 COVID-19 (principal); J12.82 Pneumonia due to coronavirus disease 2019; J96.01 Acute respiratory failure with hypoxia; I21.A1 Myocardial infarction type 2; I16.1 Hypertensive emergency; E87.1 Hypo-osmolality and hyponatremia; Z68.41 Body mass index [BMI] 40.0-44.9, adult; N17.9 Acute kidney failure, unspecified; E66.01 Morbid (severe) obesity due to excess calories; E83.51 Hypocalcemia; I11.9 Hypertensive heart disease without heart failure; Z79.82 Long term (current) use of aspirin; Z79.899 Other long term (current) drug therapy
CPT/HCPCS: 36600; 71045; 71275; 80048; 80053; 80076; 82803; 83880; 84145; 84484; 85025; 85379; 87040; 87426; 87449; 87635; 87804; 93005; 93308; 94002; 94003; 97110; 97162; 97166; 97530; 97535; 97803; 99251; 99285; J7050; Q9967; A4216; G0463; J1940; J2405; U0002